=== PATIENT | female | born 1970 | race Caucasian/White ===

== ENCOUNTER 2016-08-30 20:31 | Emergency (ER) | payer MEDICAID ==
[2016-08-30 20:56] VITALS: BP 139/73; PULSE 59; RESP 18; TEMP 98.2; O2SAT 88
--- NOTE | 2016-08-30 22:14 | EDPHY ---
H & P Stated Complaint: needs ua for methadone clinic and has c/o weakness blood in stool HPI/ROS: HPI CHIEF COMPLAINT: Multiple complaints HISTORY OF PRESENT ILLNESS: This patient very pleasant 46-year-old female significant past medical history for COPD and tobacco abuse, hypertension, obstructive sleep apnea, diastolic heart failure, and history of hypoxic respiratory failure, presents to the emergency room Past Medical History:COPD, ongoing tobacco use, hypertension, TIGIST, diastolic heart failure, hypoxic respiratory failure Past Surgical History: No recent pertinent surgical history Social History: Family History: ROS REVIEW OF SYSTEMS: A comprehensive 10 point review of systems is otherwise negative aside from elements mentioned in the history of present illness. Exam Constitutional triage nursing summary reviewed, vital signs reviewed, awake/ alert. Eyes normal conjunctivae and sclera, EOMI, PERRLA. HENT normal inspection, atraumatic, moist mucus membranes, no epistaxis, neck supple/ no meningismus, no raccoon eyes. Respiratory clear to auscultation bilaterally, normal breath sounds, no respiratory distress, no wheezing. Cardiovascular rate normal, regular rhythm, no murmur, no edema, distal pulses normal. Gastrointestinal soft, non-tender, no rebound, no guarding, normal bowel sounds, no distension, no pulsatile mass. Genitourinary no CVA tenderness. Musculoskeletal no midline vertebral tenderness, full range of motion, no calf swelling, no tenderness of extremities, no meningismus, good pulses, neurovascularly intact. Skin pink, warm, & dry, no rash, skin atraumatic. Neurologic awake, alert and oriented x 3, AAOx3, moves all 4 extremities equally, motor intact, sensory intact, CN II-XII intact, normal cerebellar, normal vision, normal speech. Psychiatric normal mood/affect. Heme/Lymph/Immune no lymphadenopathy. Differential Diagnosis: Medical Decision Making: Re-evaluation: This patient left or eloped from the emergency room prior to me seeing her. Source: Patient - Personal History LMP (Females 10-55): Hysterectomy Current Tetanus/Diphtheria Vaccine: Yes Current Tetanus Diphtheria and Acellular Pertussis (TDAP): Yes Tetanus Vaccine Date: 2011 - Medical/Surgical History Hx Asthma: No Hx Chronic Respiratory Disease: Yes Hx Diabetes: No Hx Cardiac Disease: Yes Hx Renal Disease: No Hx Cirrhosis: No Hx Alcoholism: No Hx HIV/AIDS: No Hx Splenectomy or Spleen Trauma: No Other PMH: COPD, CHF, chronic O2 use, brain lesions, HTN, heroin use, chronic pain, james, migraines, sleep apnea, HYSTERECTOMY - Social History Smoking Status: Light smoker Constitutional: Initial Vital Signs Temperature (C) 36.8 C 08/30/16 20:51 Heart Rate 59 L 08/30/16 20:51 Respiratory Rate 18 08/30/16 20:51 Blood Pressure 139/73 H 08/30/16 20:51 O2 Sat (%) 88 L 08/30/16 20:51 O2 Delivery Mode Room Air Allergies/Adverse Reactions: Sulfa (Sulfonamide Antibiotics) Allergy (Severe, Verified 01/02/16 16:48) CAN'T BREATHE metoclopramide HCl [From Reglan] Allergy (Intermediate, Verified 01/02/16 16:48) jaw clenched up tramadol HCl [From Ultram] Allergy (Unknown, Verified 01/02/16 16:48) TROUBLE BREATHING,HIVES amoxicillin trihydrate [From Augmentin] Allergy (Verified 01/02/16 16:48) potassium clavulanate [From Augmentin] Allergy (Verified 01/02/16 16:48) propranolol HCl [From Inderal] Allergy (Verified 01/02/16 16:48) Hives Home Medications: Medication Instructions Recorded amLODIPine BESYLATE [Norvasc 10 mg 10 mg PO DAILY 10/03/15 (*)] clonazePAM [klonoPIN (*)] 1 mg PO TID 10/03/15 Beclomethasone Qvar 80 [Qvar 80 2 puffs IH DAILY 10/06/15 (*)] Furosemide [Lasix 20 MG (*)] 20 mg PO TID PRN 10/06/15 Methadone HCl [Dolophine Intensol 220 mg PO ,18 10/06/15 10 mg/ml (*)] OXcarbazepine [Trileptal 300mg (*)] 600 mg PO DAILY 10/06/15 OXcarbazepine [Trileptal 300mg (*)] 900 mg PO HS 10/06/15 Zolpidem Tartrate [Ambien 10 mg] 10 mg PO HS PRN 10/06/15 Albuterol [Ventolin Hfa Inhaler] 2 puffs IH QID PRN #1 mdi 12/28/15 Aspirin [Aspirin 325 mg (*)] 325 mg PO DAILY 01/29/16 Carisoprodol [Soma (*)] 350 mg PO QID PRN #20 tab 02/03/16 Lisinopril [Zestril 20 mg (*)] 20 mg PO BID 05/28/16 hydrALAZINE [Apresoline 50 mg (*)] 50 mg PO BIDMEAL 05/28/16 hydrOXYzine HCL [hydrOXYzine HCL 50 mg PO HS PRN 05/28/16 (RX)] CLONIDINE 0.3 mg TP Q7D@05/30/16 Tiotropium Inhaler [Spiriva 18 mcg IH DAILY #1 mdi 05/31/16 Handihaler] Departure - Departure Disposition: Left Without Being Seen Condition: Fair Referrals: FAMILIA HEREDIA [Other] - As per Instructions
== END 2016-08-30 22:22 | disposition left against medical advice (07) ==
DX: Z53.21 Procedure and treatment not carried out due to patient leaving prior to being seen by health care provider (principal)

== ENCOUNTER 2016-09-22 20:10 | Emergency (ER) | payer MEDICAID ==
--- NOTE | 2016-09-22 20:22 | EDPHY ---
H & P Time Seen by Provider: 09/22/16 20:14 HPI/ROS: CHIEF COMPLAINT: Can't breathe HISTORY OF PRESENT ILLNESS: Patient is a smoker, has a history of CHF, says she has been taking her Lasix. She uses home oxygen at night. She says over the last week she has been having increased shortness of breath and weight gain of about 12 lb to 268. Symptoms are worse with exertion or lying flat, but not associated with cough or hemoptysis. She does have extremity edema. No chest pain. Took extra Lasix today and has increased urination. REVIEW OF SYSTEMS: Eye: no change in vision ENT: no sore throat Cardiac: no chest pain or syncope Pulmonary: HPI Abdomen: no vomiting, diarrhea, abdominal pain. She does have some bad heartburn with acid taste up into her throat. Musculoskeletal: Chronic pain, on methadone, unchanged from usual. Skin: no rash Neuro: no headache Constitutional: no fever : HPI, no dysuria or hematuria A comprehensive 10 point review of systems is otherwise negative aside from elements mentioned in the history of present illness. PAST MEDICAL HISTORY: History and physical dated 05/28/2016 personally reviewed. Includes CHF from diastolic dysfunction, sleep apnea, hypertension, COPD, chronic pain on methadone. Social history: Continues to smoke cigarettes. General Appearance: Alert and conversant, cooperative. Eyes: No scleral icterus. ENT, Mouth: Normal mucous membranes. Respiratory: Slight bilateral expiratory wheezes, no rales, no stridor; otherwise speaks in full sentences. Cardiovascular: Regular rate and rhythm. Gastrointestinal: Abdomen is soft and non tender. Neurological: Alert and oriented x3. Normally conversant. Face symmetric, normal movement and sensation in all extremities. Skin: Warm and dry, no rashes. Musculoskeletal: Trace bilateral peripheral edema but no calf tenderness. Psychiatric: Not agitated. Emergency Department course/MDM: Plan EKG, chest x-ray, BNP troponin and D-dimer. Pretest clinical suspicion for pulmonary embolism is low. 2109: Chest x-ray negative, will treat with DuoNeb and albuterol and oral prednisone at this time. GI cocktail, Zofran 4 mg IV. 2114: BNP 127, troponin negative. Likely COPD exacerbation, think CHF or ACS or pulmonary embolism less likely. 2204: Results discussed, patient declined further nebulizer treatments, discharge with oral prednisone and her usual inhalers. Much more likely to be COPD exacerbation. Smoking Status: Light smoker Constitutional: Initial Vital Signs Temperature (C) 36.8 C 09/22/16 20:22 Heart Rate 69 09/22/16 20:22 Respiratory Rate 16 09/22/16 20:22 Blood Pressure 134/88 H 09/22/16 20:22 O2 Sat (%) 93 09/22/16 20:22 O2 Delivery Mode Nasal Cannula O2 (L/minute) 2 Allergies/Adverse Reactions: Sulfa (Sulfonamide Antibiotics) Allergy (Severe, Verified 09/22/16 20:25) CAN'T BREATHE metoclopramide HCl [From Reglan] Allergy (Intermediate, Verified 09/22/16 20:25) jaw clenched up tramadol HCl [From Ultram] Allergy (Unknown, Verified 09/22/16 20:25) TROUBLE BREATHING,HIVES amoxicillin trihydrate [From Augmentin] Allergy (Verified 09/22/16 20:25) potassium clavulanate [From Augmentin] Allergy (Verified 09/22/16 20:25) propranolol HCl [From Inderal] Allergy (Verified 09/22/16 20:25) Hives Home Medications: Medication Instructions Recorded amLODIPine BESYLATE [Norvasc 10 mg 10 mg PO DAILY 10/03/15 (*)] clonazePAM [klonoPIN (*)] 1 mg PO TID 10/03/15 Beclomethasone Qvar 80 [Qvar 80 2 puffs IH DAILY 10/06/15 (*)] Furosemide [Lasix 20 MG (*)] 20 mg PO TID PRN 10/06/15 Methadone HCl [Dolophine Intensol 220 mg PO ,18 10/06/15 10 mg/ml (*)] OXcarbazepine [Trileptal 300mg (*)] 600 mg PO DAILY 10/06/15 OXcarbazepine [Trileptal 300mg (*)] 900 mg PO HS 10/06/15 Zolpidem Tartrate [Ambien 10 mg] 10 mg PO HS PRN 10/06/15 Albuterol [Ventolin Hfa Inhaler] 2 puffs IH QID PRN #1 mdi 12/28/15 Aspirin [Aspirin 325 mg (*)] 325 mg PO DAILY 01/29/16 Carisoprodol [Soma (*)] 350 mg PO QID PRN #20 tab 02/03/16 Lisinopril [Zestril 20 mg (*)] 20 mg PO BID 05/28/16 hydrALAZINE [Apresoline 50 mg (*)] 50 mg PO BIDMEAL 05/28/16 hydrOXYzine HCL [hydrOXYzine HCL 50 mg PO HS PRN 05/28/16 (RX)] CLONIDINE 0.3 mg TP Q7D@09 05/30/16 Tiotropium Inhaler [Spiriva 18 mcg IH DAILY #1 mdi 05/31/16 Handihaler] predniSONE [prednisone 20mg (RX)] 40 mg PO DAILY 5 Days 09/22/16 Medical Decision Making - Diagnostics EKG Interpretation: 12-lead EKG interpreted by me; official reading is in trace master. My interpretation is sinus rhythm rate 61, no acute ischemic changes per Imaging: Chest x-ray interpreted by myself is normal, no CHF, no infiltrates. Differential Diagnosis: Differential diagnosis considered for shortness of breath including but not limited to pulmonary infectious process, COPD, asthma, pulmonary embolus and congestive heart failure. - Data Points Laboratory Results: Laboratory Results 09/22/16 20:30 09/22/16 20:30 09/22/16 09/22/16 09/22/16 20:30 20:30 20:30 WBC RBC Hgb Hct MCV MCH MCHC RDW Plt Count MPV Neut % (Auto) Lymph % (Auto) [place] % (Auto) Eos % (Auto) Baso % (Auto) Nucleat RBC Rel Count Absolute Neuts (auto) Absolute Lymphs (auto) Absolute Monos (auto) Absolute Eos (auto) Absolute Basos (auto) Absolute Nucleated RBC Immature Gran % Immature Gran # D-Dimer 0.41 ug/mLFEU ug/mLFEU (0.00-0.50) Sodium 136 mEq/L mEq/L (134-144) Potassium 4.5 mEq/L mEq/L (3.5-5.2) Chloride 101 mEq/L mEq/L (97-110) Carbon Dioxide 26 mEq/l mEq/l (22-31) Anion Gap 9 mEq/L mEq/L (8-16) BUN 17 mg/dL mg/dL (7-23) Creatinine 0.6 mg/dL mg/dL (0.6-1.0) Estimated GFR > 60 Glucose 100 mg/dL mg/dL (70-100) Calcium 9.0 mg/dL mg/dL (8.5-10.4) Troponin I < 0.012 ng/mL ng/mL (0-0.034) NT-Pro-B Natriuret Pep 127 pg/mL H pg/mL (0-125) Beta HCG, Qual NEGATIVE 09/22/16 20:30 WBC 10.32 10^3/uL H 10^3/uL (3.80-9.50) RBC 4.54 10^6/uL 10^6/uL (4.18-5.33) Hgb 13.8 g/dL g/dL (12.6-16.3) Hct 40.4 % % (38.0-47.0) MCV 89.0 fL fL (81.5-99.8) MCH 30.4 pg pg (27.9-34.1) MCHC 34.2 g/dL g/dL (32.4-36.7) RDW 12.6 % % (11.5-15.2) Plt Count 255 10^3/uL 10^3/uL (150-400) MPV 10.4 fL fL (8.7-11.7) Neut % (Auto) 51.0 % % (39.3-74.2) Lymph % (Auto) 35.9 % % (15.0-45.0) [place] % (Auto) 8.6 % % (4.5-13.0) Eos % (Auto) 3.2 % % (0.6-7.6) Baso % (Auto) 0.6 % % (0.3-1.7) Nucleat RBC Rel Count 0.0 % % (0.0-0.2) Absolute Neuts (auto) 5.27 10^3/uL 10^3/uL (1.70-6.50) Absolute Lymphs (auto) 3.70 10^3/uL H 10^3/uL (1.00-3.00) Absolute Monos (auto) 0.89 10^3/uL H 10^3/uL (0.30-0.80) Absolute Eos (auto) 0.33 10^3/uL 10^3/uL (0.03-0.40) Absolute Basos (auto) 0.06 10^3/uL 10^3/uL (0.02-0.10) Absolute Nucleated RBC 0.00 10^3/uL 10^3/uL (0-0.01) Immature Gran % 0.7 % % (0.0-1.1) Immature Gran # 0.07 10^3/uL 10^3/uL (0.00-0.10) D-Dimer Sodium Potassium Chloride Carbon Dioxide Anion Gap BUN Creatinine Estimated GFR Glucose Calcium Troponin I NT-Pro-B Natriuret Pep Beta HCG, Qual Medications Given: Discontinued Medications Al Hydroxide/Mg Hydroxide (Maalox Susp) 30 ml PO ONCE ONE Stop: 09/22/16 21:10 Last Admin: 09/22/16 21:23 Dose: 30 ml Albuterol (Proventil Neb) 3 ml IH EDNOW ONE Stop: 09/22/16 21:10 Last Admin: 09/22/16 21:27 Dose: 3 ml Albuterol/Ipratropium (Duoneb) 3 ml IH EDNOW ONE Stop: 09/22/16 21:10 Last Admin: 09/22/16 21:28 Dose: 3 ml Hyoscyamine Sulfate (Levsin, Hyomax-Sl) 0.25 mg PO ONCE ONE Stop: 09/22/16 21:10 Last Admin: 09/22/16 21:22 Dose: 0.25 mg Lidocaine (Lidocaine 2% Viscous) 15 ml PO ONCE ONE Stop: 09/22/16 21:10 Last Admin: 09/22/16 21:23 Dose: 15 ml Ondansetron HCl (Zofran) 4 mg IVP EDNOW ONE Stop: 09/22/16 21:11 Last Admin: 09/22/16 21:23 Dose: 4 mg Prednisone (Prednisone) 60 mg PO EDNOW ONE Stop: 09/22/16 21:10 Last Admin: 09/22/16 21:22 Dose: 60 mg Departure - Departure Disposition: Home, Routine, Self-Care Clinical Impression: Chronic obstructive pulmonary disease with acute exacerbation Condition: Good Instructions: COPD (Chronic Obstructive Pulmonary Disease) (ED) Additional Instructions: Inhalers as prescribed. Your BNP was 127 today. Referrals: VIDHYA JOSE [Other] - As per Instructions Prescriptions: predniSONE [prednisone 20mg (RX)] 40 mg PO DAILY 5 Days
[2016-09-22 20:25] VITALS: RESP 16; TEMP 98.2
--- NOTE | 2016-09-22 20:51 | CPEKG ---
Heart Rate: 61 RR Interval: 984 P-R Interval: 164 QRSD Interval: 82 QT Interval: 432 QTC Interval: 435 P [place]: 48 QRS [place]: 45 T Wave [place]: 34 EKG Severity - NORMAL ECG - EKG Impression: SINUS RHYTHM Electronically Signed By: Roberth De La Vega 22-Sep-2016 21:01:54
[2016-09-22 20:52] LABS: % IMMATURE GRANULYOCYTES 0.7 % (0.0-1.1); ABSOLUTE IMMATURE GRANULOCYTES 0.07 10^3/uL (0.00-0.10); ADD DIFF? NO; ADD MORPH? NO; ADD SCAN? NO; ATYPICAL LYMPHOCYTE FLAG 10 (0-99); FRAGMENT RBC FLAG 0 (0-99); HEMATOCRIT 40.4 % (38.0-47.0); HEMOGLOBIN 13.8 g/dL (12.6-16.3); LEFT SHIFT FLG 0 (0-99); LIPEMIA HEMOLYSIS FLAG 90 (0-99); MEAN CELL HEMOGLOBIN 30.4 pg (27.9-34.1); MEAN CELL HEMOGLOBIN CONCENTR. 34.2 g/dL (32.4-36.7); MEAN PLATELET VOLUME 10.4 fL (8.7-11.7); PLATELET CLUMPS FLAG 10 (0-99); PLATELET COUNT 255 10^3/uL (150-400); RED BLOOD CELL COUNT 4.54 10^6/uL (4.18-5.33); RED CELL DISTRIBUTION WIDTH 12.6 % (11.5-15.2)
[2016-09-22 21:01] LABS: ANION GAP 9 mEq/L (8-16); CARBON DIOXIDE 26 mEq/l (22-31); CHLORIDE 101 mEq/L (97-110); CREATININE 0.6 mg/dL (0.6-1.0); GLOMERULAR FILTRATION RATE > 60; GLUCOSE 100 mg/dL (70-100); POTASSIUM 4.5 mEq/L (3.5-5.2); SODIUM 136 mEq/L (134-144)
[2016-09-22] MEDS ORDERED: IPRATROPIUM/ALBUTEROL 3 ML DEYVIAL IH ONE (21:09)
[2016-09-22] MEDS ORDERED: predniSONE 20 MG TAB PO ONE (21:09)
[2016-09-22] MEDS ORDERED: LIDOCAINE 2% VISCOUS 15 ML UDCUP PO ONE (21:09)
[2016-09-22] MEDS ORDERED: ALBUTEROL 3 ML DEYVIAL IH ONE (21:09)
[2016-09-22] MEDS ORDERED: HYOSCYAMINE SULFATE 0.125 MG TAB PO ONE (21:09)
[2016-09-22] MEDS ORDERED: MAG HYDROX/AL HYDROX/SIMETH 30 ML UDCUP PO ONE (21:09)
[2016-09-22] MEDS ORDERED: ONDANSETRON 4 MG/2 ML VIAL IVP ONE (21:10)
[2016-09-22 21:13] LABS: TROPONIN I < 0.012 ng/mL (0-0.034)
[2016-09-22 22:19] VITALS: BP 126/76; PULSE 67; O2SAT 91
== END 2016-09-22 22:19 | disposition home or self-care (01) ==
DX: J44.1 Chronic obstructive pulmonary disease with (acute) exacerbation (principal); I50.9 Heart failure, unspecified; I10 Essential (primary) hypertension; F17.210 Nicotine dependence, cigarettes, uncomplicated; Z79.82 Long term (current) use of aspirin
CPT/HCPCS: 96374; J2405

== ENCOUNTER 2016-10-04 19:15 | Observation (INO) | payer MEDICAID ==
[2016-10-04] MEDS ORDERED: IPRATROPIUM/ALBUTEROL 3 ML DEYVIAL IH ONE ×2 (19:25→19:34)
--- NOTE | 2016-10-04 19:25 | EDPHY ---
H & P Stated Complaint: COUGH, HEADACHE 1 DAY, CHEST PAIN AND JAW PAIN SINCE THIS A.M. HPI/ROS: HPI CHIEF COMPLAINT: Cough, shortness of breath, headache, jaw pain, chest pain HISTORY OF PRESENT ILLNESS: This patient very pleasant 46-year-old female, presents emergency room with cough, congestion, dyspnea on exertion, shortness of breath, chest pain with jaw pain, this was sick for 2 days. She does have underlying COPD, diastolic heart failure, hypertension obstructive sleep apnea no history of coronary artery disease. She does smoke tobacco daily. Last cigarette was 5 cigarettes today. She tells me she was seen here in emergency room recently for shortness of breath. Went home on prednisone. The last 2 days or progression of symptoms gotten worse dyspnea on exertion with pulse ox that she has at home reading 76% with exertion, 90% while rest. She does tell me she has mucus secretions, nothing productive. Distally tells me she has had some left-sided sharp chest pain that radiates down her arm and left jaw, nonexertional. Not currently present. Had multiple episodes of this today. Past Medical History: COPD, diastolic heart failure, hypertension, obstructive sleep apnea, no known coronary artery disease, no history be DVT Past Surgical History: No recent surgical history Social History: daily tobacco use 5 cigarettes, denies drugs, on methadone Family History: noncontributory ROS REVIEW OF SYSTEMS: A comprehensive 10 point review of systems is otherwise negative aside from elements mentioned in the history of present illness. Exam Constitutional appears well nontoxic triage nursing summary reviewed, vital signs reviewed, awake/alert. (Vital signs no 90% room air oxygen saturation at triage.) Eyes normal conjunctivae and sclera, EOMI, PERRLA. HENT normal inspection, atraumatic, moist mucus membranes, no epistaxis, neck supple/ no meningismus, no raccoon eyes. Respiratory decreased breath sounds bilaterally, crackles throughout lung luna, faint wheezing, Cardiovascular rate normal, regular rhythm, no murmur, no edema, distal pulses normal. Gastrointestinal soft, non-tender, no rebound, no guarding, normal bowel sounds, no distension, no pulsatile mass. Genitourinary no CVA tenderness. Musculoskeletal no midline vertebral tenderness, full range of motion, no calf swelling, no tenderness of extremities, no meningismus, good pulses, neurovascularly intact. Skin pink, warm, & dry, no rash, skin atraumatic. Neurologic awake, alert and oriented x 3, AAOx3, moves all 4 extremities equally, motor intact, sensory intact, CN II-XII intact, normal cerebellar, normal vision, normal speech. Psychiatric normal mood/affect. Heme/Lymph/Immune no lymphadenopathy. Differential Diagnosis: Includes but is not limited to in a particular order, COPD exacerbation, pneumonia, diastolic heart failure, pneumothorax, ACS. Medical Decision Making:plan for this patient will treat for COPD exacerbation DuoNeb breathing treatment, IV Solu-Medrol, full ekg monitor tech, EKG, troponin , blood work. Re-evaluate closely. Re-evaluation: EKG interpretation by me on record in [facility] system. Impression time of EKG 1958, sinus rhythm rate of 54, no acute ischemic changes specifically no ST elevation, ST depression or prolonged intervals. EKG unremarkable for acute ischemia. 2152: Re-evaluation at this time patient still has faint wheezing. 2nd DuoNeb breathing treatment ordered. Patient is requesting be admitted to the hospital for dyspnea on exertion dyspnea. Feel this is reasonable given that she had low O2 sats, still wheezing after DuoNeb breathing treatment. Chest x-ray reviewed shows bronchitis no acute pneumonia or overt failure. Troponin and BNP are pending at this time. o2 sat on room air 90% upon arrival here. 93% on 2 L at this time. Resting. 2217: this patient be admitted to the hospitalist service [facility] for observation for COPD exacerbation and dyspnea. No concerned this patient has a P no significant pleuritic pain, no profound hypoxia, no EKG changes. Has wheezing on exam. Improved after DuoNeb breathing treatment getting a 2nd Orapred breathing treatment. I did order the patient Levaquin. Patient be admitted to [facility] for observation pulmonary toilet. Dr. Grover accepts Source: Patient - Personal History LMP (Females 10-55): Hysterectomy Current Tetanus/Diphtheria Vaccine: Yes Current Tetanus Diphtheria and Acellular Pertussis (TDAP): Yes Tetanus Vaccine Date: 2011 - Medical/Surgical History Hx Asthma: No Hx Chronic Respiratory Disease: Yes Hx Diabetes: No Hx Cardiac Disease: Yes Hx Renal Disease: No Hx Cirrhosis: No Hx Alcoholism: No Hx HIV/AIDS: No Hx Splenectomy or Spleen Trauma: No Other PMH: COPD, CHF, chronic O2 use, brain lesions, HTN, heroin use, chronic pain, james, migraines, sleep apnea, HYSTERECTOMY - Social History Smoking Status: Light smoker Constitutional: Initial Vital Signs Temperature (C) 37.1 C 10/04/16 19:16 Heart Rate 61 10/04/16 19:16 Respiratory Rate 18 10/04/16 19:16 Blood Pressure 134/75 H 10/04/16 19:16 O2 Sat (%) 90 L 10/04/16 19:16 O2 Delivery Mode Room Air O2 (L/minute) 2 Allergies/Adverse Reactions: Sulfa (Sulfonamide Antibiotics) Allergy (Severe, Verified 10/04/16 19:21) CAN'T BREATHE metoclopramide HCl [From Reglan] Allergy (Intermediate, Verified 10/04/16 19:21) jaw clenched up tramadol HCl [From Ultram] Allergy (Unknown, Verified 10/04/16 19:21) TROUBLE BREATHING,HIVES amoxicillin trihydrate [From Augmentin] Allergy (Verified 10/04/16 19:21) potassium clavulanate [From Augmentin] Allergy (Verified 10/04/16 19:21) propranolol HCl [From Inderal] Allergy (Verified 10/04/16 19:21) Hives Home Medications: Medication Instructions Recorded amLODIPine BESYLATE [Norvasc 10 mg 10 mg PO DAILY 10/03/15 (*)] clonazePAM [klonoPIN (*)] 1 mg PO TID 10/03/15 Beclomethasone Qvar 80 [Qvar 80 2 puffs IH DAILY 10/06/15 (*)] Furosemide [Lasix 20 MG (*)] 20 mg PO TID PRN 10/06/15 Methadone HCl [Dolophine Intensol 220 mg PO 06,18 10/06/15 10 mg/ml (*)] OXcarbazepine [Trileptal 300mg (*)] 600 mg PO DAILY 10/06/15 OXcarbazepine [Trileptal 300mg (*)] 900 mg PO HS 10/06/15 Zolpidem Tartrate [Ambien 10 mg] 10 mg PO HS PRN 10/06/15 Albuterol [Ventolin Hfa Inhaler] 2 puffs IH QID PRN #1 mdi 12/28/15 Aspirin [Aspirin 325 mg (*)] 325 mg PO DAILY 08/07/16 Carisoprodol [Soma (*)] 350 mg PO QID PRN #20 tab 02/03/16 Lisinopril [Zestril 20 mg (*)] 20 mg PO BID 05/28/16 hydrALAZINE [Apresoline 50 mg (*)] 50 mg PO BIDMEAL 05/28/16 hydrOXYzine HCL [hydrOXYzine HCL 50 mg PO HS PRN 05/28/16 (RX)] CLONIDINE 0.3 mg TP Q7D@09 05/30/16 Tiotropium Inhaler [Spiriva 18 mcg IH DAILY #1 mdi 05/31/16 Handihaler] predniSONE [prednisone 20mg (RX)] 40 mg PO DAILY 5 Days 09/22/16 Medical Decision Making - Diagnostics Imaging: Imaging Impressions Chest X-Ray 10/04/16 19:25 Impression: No significant findings. - Data Points Laboratory Results: Laboratory Results 10/04/16 21:00 10/04/16 21:00 10/04/16 10/04/16 10/04/16 21:00 21:00 21:00 WBC 10.51 10^3/uL H 10^3/uL (3.80-9.50) RBC 4.12 10^6/uL L 10^6/uL (4.18-5.33) Hgb 12.8 g/dL g/dL (12.6-16.3) Hct 37.6 % L % (38.0-47.0) MCV 91.3 fL fL (81.5-99.8) MCH 31.1 pg pg (27.9-34.1) MCHC 34.0 g/dL g/dL (32.4-36.7) RDW 12.5 % % (11.5-15.2) Plt Count 249 10^3/uL 10^3/uL (150-400) MPV 10.2 fL fL (8.7-11.7) Neut % (Auto) 47.7 % % (39.3-74.2) Lymph % (Auto) 36.3 % % (15.0-45.0) [place] % (Auto) 10.6 % % (4.5-13.0) Eos % (Auto) 3.7 % % (0.6-7.6) Baso % (Auto) 0.7 % % (0.3-1.7) Nucleat RBC Rel Count 0.0 % % (0.0-0.2) Absolute Neuts (auto) 5.03 10^3/uL 10^3/uL (1.70-6.50) Absolute Lymphs (auto) 3.81 10^3/uL H 10^3/uL (1.00-3.00) Absolute Monos (auto) 1.11 10^3/uL H 10^3/uL (0.30-0.80) Absolute Eos (auto) 0.39 10^3/uL 10^3/uL (0.03-0.40) Absolute Basos (auto) 0.07 10^3/uL 10^3/uL (0.02-0.10) Absolute Nucleated RBC 0.00 10^3/uL 10^3/uL (0-0.01) Immature Gran % 1.0 % % (0.0-1.1) Immature Gran # 0.10 10^3/uL 10^3/uL (0.00-0.10) PT 12.6 SEC SEC (12.0-15.0) INR 0.95 (0.83-1.16) APTT 23.6 SEC SEC (23.0-38.0) Sodium 137 mEq/L mEq/L (134-144) Potassium 4.7 mEq/L mEq/L (3.5-5.2) Chloride 97 mEq/L mEq/L (97-110) Carbon Dioxide 30 mEq/l mEq/l (22-31) Anion Gap 10 mEq/L mEq/L (8-16) BUN 24 mg/dL H mg/dL (7-23) Creatinine 0.6 mg/dL mg/dL (0.6-1.0) Estimated GFR > 60 Glucose 84 mg/dL mg/dL (70-100) Calcium 9.0 mg/dL mg/dL (8.5-10.4) Magnesium 1.9 mg/dL mg/dL (1.6-2.3) Total Bilirubin 0.5 mg/dL mg/dL (0.1-1.4) Conjugated Bilirubin 0.5 mg/dL mg/dL (0.0-0.5) Unconjugated Bilirubin 0.0 mg/dL mg/dL (0.0-1.1) AST 29 IU/L IU/L (14-46) ALT 35 IU/L IU/L (9-52) Alkaline Phosphatase 125 IU/L IU/L (38-126) Creatine Kinase 103 IU/L IU/L (0-156) CK-MB (CK-2) Fraction 2.18 ng/mL ng/mL (0-3.19) Troponin I < 0.012 ng/mL ng/mL (0-0.034) NT-Pro-B Natriuret Pep 214 pg/mL H pg/mL (0-125) Total Protein 7.1 g/dL g/dL (6.3-8.2) Albumin 4.0 g/dL g/dL (3.5-5.0) Lipase 86.0 IU/L IU/L (23-300) Medications Given: Discontinued Medications Albuterol/Ipratropium (Duoneb) 3 ml IH EDNOW ONE Stop: 10/04/16 19:26 Last Admin: 10/04/16 19:45 Dose: 3 ml Methylprednisolone Sodium Succinate (Solu-Medrol) 125 mg IVP EDNOW ONE Stop: 10/04/16 19:36 Last Admin: 10/04/16 21:13 Dose: 125 mg Departure - Departure Disposition: [facility] Acute Clinical Impression: Hypoxia COPD (chronic obstructive pulmonary disease) Qualifiers: COPD type: unspecified COPD Qualified Code(s): J44.9 - Chronic obstructive pulmonary disease, unspecified Condition: Fair Referrals: VIDHYA SCHAEFFER [Other] - As per Instructions
[2016-10-04] MEDS ORDERED: methylPREDNISolone SOD SUCC 125 MG/2 ML VIAL IVP ONE (19:35)
--- NOTE | 2016-10-04 20:01 | CPEKG ---
Heart Rate: 54 RR Interval: 1111 P-R Interval: 176 QRSD Interval: 86 QT Interval: 444 QTC Interval: 421 P [place]: 45 QRS [place]: 58 T Wave [place]: 52 EKG Severity - BORDERLINE ECG - EKG Impression: SINUS RHYTHM EKG Impression: PROBABLE LEFT ATRIAL ABNORMALITY Electronically Signed By: Christiano Hill 04-Oct-2016 22:46:26
[2016-10-04 21:20] LABS: ADD DIFF? NO; ADD MORPH? NO; ADD SCAN? NO; ATYPICAL LYMPHOCYTE FLAG 10 (0-99); FRAGMENT RBC FLAG 0 (0-99); HEMATOCRIT 37.6 % (38.0-47.0); HEMOGLOBIN 12.8 g/dL (12.6-16.3); LEFT SHIFT FLG 10 (0-99); LIPEMIA HEMOLYSIS FLAG 90 (0-99); MEAN CELL HEMOGLOBIN 31.1 pg (27.9-34.1); MEAN CELL VOLUME 91.3 fL (81.5-99.8); MEAN PLATELET VOLUME 10.2 fL (8.7-11.7); PLATELET CLUMPS FLAG 0 (0-99); PLATELET COUNT 249 10^3/uL (150-400); RED BLOOD CELL COUNT 4.12 10^6/uL (4.18-5.33); RED CELL DISTRIBUTION WIDTH 12.5 % (11.5-15.2)
[2016-10-04 21:26] LABS: INR 0.95 (0.83-1.16); PROTIME(PATIENT) 12.6 SEC (12.0-15.0)
[2016-10-04 21:27] LABS: APTT 23.6 SEC (23.0-38.0)
[2016-10-04 21:48] LABS: ALANINE AMINOTRANSFERASE 35 IU/L (9-52); ALKALINE PHOSPHATASE 125 IU/L (38-126); ANION GAP 10 mEq/L (8-16); ASPARTATE AMINOTRANSFERASE 29 IU/L (14-46); BILIRUBIN,TOTAL 0.5 mg/dL (0.1-1.4); BILIRUBIN-CONJUGATED 0.5 mg/dL (0.0-0.5); CARBON DIOXIDE 30 mEq/l (22-31); CHLORIDE 97 mEq/L (97-110); CREATININE 0.6 mg/dL (0.6-1.0); GLOMERULAR FILTRATION RATE > 60; GLUCOSE 84 mg/dL (70-100); MAGNESIUM 1.9 mg/dL (1.6-2.3); POTASSIUM 4.7 mEq/L (3.5-5.2); SODIUM 137 mEq/L (134-144); TOTAL PROTEIN 7.1 g/dL (6.3-8.2)
[2016-10-04 21:59] LABS: CREATINE KINASE-MB FRACTION 2.18 ng/mL (0-3.19); TROPONIN I < 0.012 ng/mL (0-0.034)
[2016-10-04] MEDS ORDERED: MAG HYDROX/AL HYDROX/SIMETH 30 ML UDCUP PO PRN (22:45)
[2016-10-04] MEDS ORDERED: ACETAMINOPHEN 325 MG TAB PO PRN (22:45)
[2016-10-04] MEDS ORDERED: ALBUTEROL 3 ML DEYVIAL IH PRN (22:45)
[2016-10-04] MEDS ORDERED: LISINOPRIL 20 MG TAB PO ONE (23:01)
[2016-10-04] MEDS ORDERED: ZOLPIDEM TARTRATE 5 MG TAB PO PRN (23:01)
[2016-10-04] MEDS ORDERED: clonazePAM 1 MG TAB PO ONE (23:02)
--- NOTE | 2016-10-04 23:03 | PDGENHP ---
History and Physical - Chief Complaint shortness of breath - History of Present Illness Patient is a 46 year old female with hypertension, diastolic CHF, COPD, TIGIST and chronic pain syndrome who presents to the ED complaining of chest tightness and shortness of breath. Patient states symptoms started about 3 days ago with increased wheezing and tightness in her chest. The following day she developed a productive cough with clear sputum. Today the patient reports a subjective fever, increased upper chest congestion, nausea and generalized fatigue/ weakness. Today she also reports symptom of sharp chest pain/tightness, not associated with any palpitations, lightheadedness, nausea or diaphoresis. In addition to her symptoms she also reports increased O2 requirements from 2L to 4L last night and also noted her pulse ox showed desaturation into the 75% range with exertion. She denies any recent travel, but does report a sick contact in her mother, who currently lives with her, and was diagnosed with influenza last week. On arrival to the ED, patient is afebrile and hemodynamically stable, saturating in the 90% range on room air. Labs, including cbc, bmp and troponin were unremarkable. CXR and EKG were also unremarkable. She was given IV steroids , neb treatments for wheezing, antibiotics and was admitted to the hospitalist service for further management. History Information - Allergies/Home Medication List Allergies/Adverse Reactions: Sulfa (Sulfonamide Antibiotics) Allergy (Severe, Verified 10/04/16 19:21) CAN'T BREATHE metoclopramide HCl [From Reglan] Allergy (Intermediate, Verified 10/04/16 19:21) jaw clenched up tramadol HCl [From Ultram] Allergy (Unknown, Verified 10/04/16 19:21) TROUBLE BREATHING,HIVES amoxicillin trihydrate [From Augmentin] Allergy (Verified 10/04/16 19:21) potassium clavulanate [From Augmentin] Allergy (Verified 10/04/16 19:21) propranolol HCl [From Inderal] Allergy (Verified 10/04/16 19:21) Hives Home Medications: amLODIPine BESYLATE [Norvasc 10 mg (*)] 10 mg PO DAILY 10/03/15 [Last Taken 11/06] clonazePAM [klonoPIN (*)] 1 mg PO TID 10/03/15 [Last Taken 05/28/16 07:00] Beclomethasone Qvar 80 [Qvar 80 (*)] 2 puffs IH DAILY 10/06/15 [Last Taken 05/28] Furosemide [Lasix 20 MG (*)] 20 mg PO TID PRN 10/06/15 [Last Taken 05/28/16 07: 00] Methadone HCl [Dolophine Intensol 10 mg/ml (*)] 220 mg PO ,18 10/06/15 [Last Taken 05/28/16 06:00] OXcarbazepine [Trileptal 300mg (*)] 600 mg PO DAILY 10/06/15 [Last Taken ] OXcarbazepine [Trileptal 300mg (*)] 900 mg PO HS 10/06/15 [Last Taken 05/28/16 07:00] Zolpidem Tartrate [Ambien 10 mg] 10 mg PO HS PRN 10/06/15 [Last Taken 05/27/16] Aspirin [Aspirin 325 mg (*)] 325 mg PO DAILY 01/29/16 [Last Taken 05/28/16] Lisinopril [Zestril 20 mg (*)] 20 mg PO BID 05/28/16 [Last Taken 05/28/16 07:00] hydrALAZINE [Apresoline 50 mg (*)] 50 mg PO BIDMEAL 05/28/16 [Last Taken 07:00] hydrOXYzine HCL [hydrOXYzine HCL (RX)] 50 mg PO HS PRN 05/28/16 [Last Taken 10/07] CLONIDINE 0.3 mg TP Q7D@09 05/30/16 [Last Taken 05/25/16] I have personally reviewed and updated: family history, medical history, social history, surgical history - Past Medical History Additional medical history: Hypertension. diastolic CHF. COPD. TIGIST on nightly O2. GERD. Morbid obesity. chronic pain syndrome on chronic methadone therapy - Surgical History Additional surgical history: tonsillectomy. hysterectomy. cholecystectomy. bunionectomy - Family History Positive for: non-pertinent - Social History Smoking Status: Light smoker (1/3 PPD x 30 years; trying to quit) Alcohol Use: None Drug Use: Other (former PO and IV opioid abuse; quit 3 years ago) Additional social history: Patient currently lives with her , child and mother. Review of Systems ROS: 10pt was reviewed & negative except for what was stated in HPI & below Physical Exam Temp Pulse Resp BP Pulse Ox 37.1 C 54 L 18 161/67 H 93 10/04/16 19:16 10/04/16 22:15 10/04/16 22:15 10/04/16 22:15 10/04/16 22:15 Constitutional: no apparent distress, appears nourished, not in pain, obese Eyes: PERRL, anicteric sclera, EOMI Ears, Nose, Mouth, Throat: moist mucous membranes, hearing normal, ears appear normal, no oral mucosal ulcers Cardiovascular: regular rate and rhythym, no murmur, rub, or gallop, pulses symmetric bilaterally, No JVD, No edema Peripheral Pulses: 2+: dorsalis-pedis (R), dorsalis-pedis (L) Respiratory: no respiratory distress, no rales or rhonchi, clear to auscultation Gastrointestinal: normoactive bowel sounds, soft, non-tender abdomen, no palpable masses, No guarding, No rebound Genitourinary: no bladder fullness, no bladder tenderness Skin: warm, normal color, no rashes or abrasions, no fluctuance, no induration, No mottled Musculoskeletal: full muscle strength, no muscle tenderness, normal joint ROM, no joint effusions Neurologic: AAOx3, sensation intact bilaterally, CN II-XII Intact, No weakness, No numbness, No facial droop Psychiatric: interacting appropriately, not anxious, not encephalopathic, thought process linear Lab Data & Imaging Review 10/04/16 21:00 10/04/16 21:00 WBC 10.51 10^3/uL (3.80-9.50) H 10/04/16 21:00 RBC 4.12 10^6/uL (4.18-5.33) L 10/04/16 21:00 Hgb 12.8 g/dL (12.6-16.3) 10/04/16 21:00 Hct 37.6 % (38.0-47.0) L 10/04/16 21:00 MCV 91.3 fL (81.5-99.8) 10/04/16 21:00 MCH 31.1 pg (27.9-34.1) 10/04/16 21:00 MCHC 34.0 g/dL (32.4-36.7) 10/04/16 21:00 RDW 12.5 % (11.5-15.2) 10/04/16 21:00 Plt Count 249 10^3/uL (150-400) 10/04/16 21:00 MPV 10.2 fL (8.7-11.7) 10/04/16 21:00 Neut % (Auto) 47.7 % (39.3-74.2) 10/04/16 21:00 Lymph % (Auto) 36.3 % (15.0-45.0) 10/04/16 21:00 [place] % (Auto) 10.6 % (4.5-13.0) 10/04/16 21:00 Eos % (Auto) 3.7 % (0.6-7.6) 10/04/16 21:00 Baso % (Auto) 0.7 % (0.3-1.7) 10/04/16 21:00 Nucleat RBC Rel Count 0.0 % (0.0-0.2) 10/04/16 21:00 Absolute Neuts (auto) 5.03 10^3/uL (1.70-6.50) 10/04/16 21:00 Absolute Lymphs (auto) 3.81 10^3/uL (1.00-3.00) H 10/04/16 21:00 Absolute Monos (auto) 1.11 10^3/uL (0.30-0.80) H 10/04/16 21:00 Absolute Eos (auto) 0.39 10^3/uL (0.03-0.40) 10/04/16 21:00 Absolute Basos (auto) 0.07 10^3/uL (0.02-0.10) 10/04/16 21:00 Absolute Nucleated RBC 0.00 10^3/uL (0-0.01) 10/04/16 21:00 Immature Gran % 1.0 % (0.0-1.1) 10/04/16 21:00 Immature Gran # 0.10 10^3/uL (0.00-0.10) 10/04/16 21:00 PT 12.6 SEC (12.0-15.0) 10/04/16 21:00 INR 0.95 (0.83-1.16) 10/04/16 21:00 APTT 23.6 SEC (23.0-38.0) 10/04/16 21:00 Sodium 137 mEq/L (134-144) 10/04/16 21:00 Potassium 4.7 mEq/L (3.5-5.2) 10/04/16 21:00 Chloride 97 mEq/L (97-110) 10/04/16 21:00 Carbon Dioxide 30 mEq/l (22-31) 10/04/16 21:00 Anion Gap 10 mEq/L (8-16) 10/04/16 21:00 BUN 24 mg/dL (7-23) H 10/04/16 21:00 Creatinine 0.6 mg/dL (0.6-1.0) 10/04/16 21:00 Estimated GFR > 60 10/04/16 21:00 Glucose 84 mg/dL (70-100) 10/04/16 21:00 Calcium 9.0 mg/dL (8.5-10.4) 10/04/16 21:00 Magnesium 1.9 mg/dL (1.6-2.3) 10/04/16 21:00 Total Bilirubin 0.5 mg/dL (0.1-1.4) 10/04/16 21:00 Conjugated Bilirubin 0.5 mg/dL (0.0-0.5) 10/04/16 21:00 Unconjugated Bilirubin 0.0 mg/dL (0.0-1.1) 10/04/16 21:00 AST 29 IU/L (14-46) 10/04/16 21:00 ALT 35 IU/L (9-52) 10/04/16 21:00 Alkaline Phosphatase 125 IU/L (38-126) 10/04/16 21:00 Creatine Kinase 103 IU/L (0-156) 10/04/16 21:00 CK-MB (CK-2) Fraction 2.18 ng/mL (0-3.19) 10/04/16 21:00 Troponin I < 0.012 ng/mL (0-0.034) 10/04/16 21:00 NT-Pro-B Natriuret Pep 214 pg/mL (0-125) H 10/04/16 21:00 Total Protein 7.1 g/dL (6.3-8.2) 10/04/16 21:00 Albumin 4.0 g/dL (3.5-5.0) 10/04/16 21:00 Lipase 86.0 IU/L (23-300) 10/04/16 21:00 Visualized and Interpreted Chest x-ray results: Yes Chest X-Ray results: no infiltrate Visualized and Interpreted EKG results: Yes EKG Interpretation: Positive for: normal sinsus rhythm Assessment & Plan Assessment: Patient is a 46 year old female with HTN, dCHF, COPD, TIGIST and chronic pain syndrome who presents to the ED with 3 days of cough, shortness of breath and upper respiratory infection symptoms. ED evaluation reveals mild acute hypoxia, consistent with acute COPD exacerbation. Plan: # acute on chronic hypoxic respiratory failure, acute COPD exacerbation Patient presents with hypoxia and wheezing on exam; CXR is unremarkable, EKG, BNP and troponin are within normal limits. Presentation appears consistent with an acute COPD exacerbation, likely triggered by a viral URI. Will check Flu swab given recent contact with mother who was flu positive. Will also cont PO steroids, nebs standing and prn, supplemental O2 and azithromycin. # diastolic chf Patient appears euvolemic on exam, do not suspect CHF exacerbation. Last TTE and stress test were in 01/2016, no indication to repeat them in this admission. Will confirm and continue home meds. # hypertension BP stable on presentation today. Cont home meds. # chronic low back pain, chronic opioid dependence Patient feels pain is about at baseline. Will confirm and continue home pain regimen. # dispo: admit to observation status for mild COPD exacerbation #gen: regular diet full code
[2016-10-04] MEDS ORDERED: CARISOPRODOL 350 MG TAB PO ONE (23:30)
[2016-10-05] MEDS: IPRATROPIUM BROMIDE 0.5 MG/2.5 ML DEYVIAL IH SCH ×2 (01:04→05:29)
[2016-10-05 05:15] LABS: % IMMATURE GRANULYOCYTES 1.6 % (0.0-1.1); ABSOLUTE IMMATURE GRANULOCYTES 0.15 10^3/uL (0.00-0.10); ADD DIFF? NO; ADD MORPH? NO; ADD SCAN? NO; ATYPICAL LYMPHOCYTE FLAG 0 (0-99); FRAGMENT RBC FLAG 0 (0-99); HEMOGLOBIN 14.4 g/dL (12.6-16.3); LEFT SHIFT FLG 20 (0-99); LIPEMIA HEMOLYSIS FLAG 90 (0-99); MEAN CELL HEMOGLOBIN 30.6 pg (27.9-34.1); MEAN CELL HEMOGLOBIN CONCENTR. 34.3 g/dL (32.4-36.7); MEAN CELL VOLUME 89.2 fL (81.5-99.8); PLATELET CLUMPS FLAG 0 (0-99); PLATELET COUNT 267 10^3/uL (150-400); RED BLOOD CELL COUNT 4.71 10^6/uL (4.18-5.33); RED CELL DISTRIBUTION WIDTH 12.2 % (11.5-15.2)
[2016-10-05 05:28] LABS: ANION GAP 14 mEq/L (8-16); CALCIUM 9.5 mg/dL (8.5-10.4); CARBON DIOXIDE 27 mEq/l (22-31); CHLORIDE 96 mEq/L (97-110); CREATININE 0.6 mg/dL (0.6-1.0); GLOMERULAR FILTRATION RATE > 60; GLUCOSE 275 mg/dL (70-100); POTASSIUM 4.9 mEq/L (3.5-5.2); SODIUM 137 mEq/L (134-144)
[2016-10-05 05:40] LABS: TROPONIN I < 0.012 ng/mL (0-0.034)
[2016-10-05 07:42] VITALS: RESP 16; O2SAT 93
[2016-10-05] MEDS ORDERED: CARISOPRODOL 350 MG TAB PO PRN (08:47)
[2016-10-05] MEDS ORDERED: hydrOXYzine HCL 25 MG TAB PO PRN (08:47)
[2016-10-05] MEDS ORDERED: FUROSEMIDE 20 MG TAB PO PRN (08:47)
[2016-10-05] MEDS ORDERED: ZOLPIDEM TARTRATE 5 MG TAB PO PRN (08:54)
[2016-10-05] MEDS ORDERED: BECLOMETHASONE QVAR 80 MDI IH SCH (09:00)
[2016-10-05] MEDS ORDERED: TIOTROPIUM INHALER 18 MCG/DOSE 5 DOSE/MDI IH SCH (09:00)
[2016-10-05] MEDS ORDERED: OXcarbazepine 300 MG TAB PO SCH ×2 (09:00→21:00)
[2016-10-05] MEDS ORDERED: predniSONE 20 MG TAB PO SCH (09:00)
[2016-10-05] MEDS ORDERED: LISINOPRIL 20 MG TAB PO SCH (09:00)
[2016-10-05] MEDS ORDERED: clonazePAM 1 MG TAB PO SCH (09:00)
[2016-10-05] MEDS ORDERED: ASPIRIN 325 MG TAB PO SCH (09:00)
[2016-10-05] MEDS ORDERED: METHADONE HCL 10 MG/ML 1000 ML BULK BOTTLE PO SCH (09:30)
[2016-10-05 11:28] VITALS: BP 158/95; PULSE 71; TEMP 97.3
--- NOTE | 2016-10-05 11:28 | PDDCSUM ---
Discharge Summary Discharge Summary: DISCHARGE DIAGNOSES: -ACUTE COPD EXACERBATION -ACUTE HYPOXEMIC RESPIRATORY FAILURE -SUSPECTED ACUTE VIRAL RESPIRATORY SYNDROME HOSPITAL COURSE SUMMARY: This patient with longstanding COPD came in with cough shortness of breath, decreased breath sounds with no evidence of heart failure or pneumonia and no fever. She does have a close contact family member with viral sending respiratory symptoms at home. She was tested for influenza which was negative. She was treated here with continued bronchodilator use in addition of oral prednisone along with inhaled steroid that she uses chronically. She responded quite well overnight at this point is significantly less short of breath, doing quite well on room air with ambulation walking eating talking. She is stable for discharge to home will follow-up with her primary care clinic in 3 days at the latest to check on her breathing. PENDING TEST RESULTS: None MEDICATION CHANGES: Addition of tapering prednisone 40 mg x2 days followed by 20 mg x3 days then 10 mg x3 days FOLLOW-UP PLAN: At her primary care clinic in [place] in 3 days
== END 2016-10-05 12:20 | disposition home or self-care (01) ==
LOC: F1N 23:05
PROVIDERS: ADMIT Internal Medicine; ATTEND Internal Medicine
DX: J44.1 Chronic obstructive pulmonary disease with (acute) exacerbation (principal); J96.21 Acute and chronic respiratory failure with hypoxia; I10 Essential (primary) hypertension; G47.33 Obstructive sleep apnea (adult) (pediatric); Z72.0 Tobacco use; G89.4 Chronic pain syndrome; I50.31 Acute diastolic (congestive) heart failure; F11.20 Opioid dependence, uncomplicated
CPT/HCPCS: 71010; 93005; G0378; 96374; J1956

== ENCOUNTER 2016-11-14 10:51 | Emergency (ER) | payer MEDICAID ==
[2016-11-14 10:59] VITALS: O2SAT 93
--- NOTE | 2016-11-14 11:17 | CPEKG ---
Heart Rate: 77 RR Interval: 779 P-R Interval: 152 QRSD Interval: 80 QT Interval: 392 QTC Interval: 444 P [place]: 60 QRS [place]: 25 T Wave [place]: 20 EKG Severity - ABNORMAL ECG - EKG Impression: SINUS RHYTHM EKG Impression: BIATRIAL ABNORMALITIES Electronically Signed By: Nadja Mayorga 15-Nov-2016 20:32:26
[2016-11-14 11:28] LABS: % IMMATURE GRANULYOCYTES 0.5 % (0.0-1.1); ABSOLUTE IMMATURE GRANULOCYTES 0.05 10^3/uL (0.00-0.10); ADD DIFF? NO; ADD MORPH? NO; ADD SCAN? NO; ATYPICAL LYMPHOCYTE FLAG 0 (0-99); FRAGMENT RBC FLAG 0 (0-99); HEMATOCRIT 40.2 % (38.0-47.0); HEMOGLOBIN 13.9 g/dL (12.6-16.3); LEFT SHIFT FLG 0 (0-99); LIPEMIA HEMOLYSIS FLAG 90 (0-99); MEAN CELL HEMOGLOBIN CONCENTR. 34.6 g/dL (32.4-36.7); MEAN CELL VOLUME 89.7 fL (81.5-99.8); MEAN PLATELET VOLUME 10.1 fL (8.7-11.7); PLATELET CLUMPS FLAG 0 (0-99); PLATELET COUNT 231 10^3/uL (150-400); RED BLOOD CELL COUNT 4.48 10^6/uL (4.18-5.33); RED CELL DISTRIBUTION WIDTH 12.4 % (11.5-15.2)
[2016-11-14 12:00] LABS: ANION GAP 13 mEq/L (8-16); CALCIUM 9.3 mg/dL (8.5-10.4); CARBON DIOXIDE 24 mEq/l (22-31); CHLORIDE 103 mEq/L (97-110); CREATININE 0.7 mg/dL (0.6-1.0); GLOMERULAR FILTRATION RATE > 60; GLUCOSE 151 mg/dL (70-100); POTASSIUM 4.1 mEq/L (3.5-5.2); SODIUM 140 mEq/L (134-144)
[2016-11-14 12:12] LABS: TROPONIN I < 0.012 ng/mL (0-0.034)
[2016-11-14 12:42] VITALS: BP 190/104; PULSE 80; RESP 16; TEMP 97.9
--- NOTE | 2016-11-14 12:43 | EDPHY ---
H & P Stated Complaint: high blood pressure/intermittent chest tightness x 1 week Time Seen by Provider: 11/14/16 11:06 HPI/ROS: CHIEF COMPLAINT: "My blood pressure is high" HISTORY OF PRESENT ILLNESS: 46-year-old female history hypertension, COPD, states that for the past several days she has been experiencing intermittent chest pain which lasts a few seconds, not related to exertion, no dyspnea. Last evening she felt hot and checked her blood pressure and had a home blood pressure reading of 220 systolic, repeated the blood pressure throughout the evening and this morning in repeatedly had numbers either in the high 100 there low 200s and came to the ER for evaluation. She has been compliant with her medication including multiple anti hypertensives. She currently has no complaints of chest pain or dyspnea, no headache, no visual disturbance PRIMARY CARE PROVIDER: Dr Dennis Morales in [facility] and [facility] REVIEW OF SYSTEMS: A ten point review of systems was performed and is negative with the exception of the items mentioned in the HPI PAST MEDICAL & SURGICAL HISTORY: COPD. Hypertension SOCIAL HISTORY: daily tobacco smoker PHYSICAL EXAM (Prior to examination, patient consented to physical exam, hands were washed and my usual and customary physical exam procedures followed) 1) GENERAL: Well-developed, well-nourished, alert and oriented. Appears to be in no acute distress. 2) HEAD: Normocephalic, atraumatic 3) HEENT: Pupils equal, round, reactive to light bilaterally. Sclera anicteric. 4) NECK: Full range of motion, no meningeal signs. No bruit 5) LUNGS: Clear auscultation bilaterally, no wheezes, no rhonchi, no retractions. 6) HEART: Regular rate and rhythm, no murmur, no heave, no gallop. 7) ABDOMEN: No guarding, no rebound, no focal tenderness, 8) MUSCULOSKELETAL: Moving all extremities, no focal areas of tenderness, no obvious trauma. No peripheral edema or discoloration. Negative Homans no palpable cord. 9) BACK: No CVA tenderness, no midline vertebral tenderness, no fluctuance, no step-off, no obvious trauma, no visual or palpable abnormality. 10) SKIN: No rash, no petechiae. 11) Psychiatric: Patient is oriented X 3, there is no agitation. DIFFERENTIAL DIAGNOSIS: In no particular order, including but not limited to myocardial ischemia, CHF, pulmonary embolus, chest wall pain, pleural inflammation and pulmonary infectious causes. - Personal History LMP (Females 10-55): Hysterectomy Current Tetanus/Diphtheria Vaccine: Yes Tetanus Vaccine Date: 2011 - Medical/Surgical History Hx Asthma: No Hx Chronic Respiratory Disease: Yes Hx Diabetes: No Hx Cardiac Disease: Yes Hx Renal Disease: No Hx Cirrhosis: No Hx Alcoholism: No Hx HIV/AIDS: No Hx Splenectomy or Spleen Trauma: No Other PMH: COPD, CHF, chronic O2 use, brain lesions, HTN, heroin use, chronic pain, james, migraines, sleep apnea, Hysterectomy;MRSA 5-6 years - Social History Smoking Status: Current every day smoker Constitutional: Initial Vital Signs Temperature (C) 36.8 C 11/14/16 10:55 Heart Rate 87 11/14/16 10:55 Respiratory Rate 18 11/14/16 10:55 Blood Pressure 186/96 H 11/14/16 10:55 O2 Sat (%) 93 11/14/16 10:55 O2 Delivery Mode Room Air Allergies/Adverse Reactions: Sulfa (Sulfonamide Antibiotics) Allergy (Severe, Verified 11/14/16 10:53) CAN'T BREATHE metoclopramide HCl [From Reglan] Allergy (Intermediate, Verified 11/14/16 10:53) jaw clenched up tramadol HCl [From Ultram] Allergy (Unknown, Verified 11/14/16 10:53) TROUBLE BREATHING,HIVES amoxicillin trihydrate [From Augmentin] Allergy (Verified 11/14/16 10:53) potassium clavulanate [From Augmentin] Allergy (Verified 11/14/16 10:53) propranolol HCl [From Inderal] Allergy (Verified 11/14/16 10:53) Hives Home Medications: Medication Instructions Recorded amLODIPine BESYLATE [Norvasc 10 mg 10 mg PO DAILY 10/03/15 (*)] clonazePAM [klonoPIN (*)] 1 mg PO TID 10/03/15 Beclomethasone Qvar 80 [Qvar 80 2 puffs IH DAILY 10/06/15 (*)] Furosemide [Lasix 20 MG (*)] 20 mg PO TID PRN 10/06/15 Methadone HCl [Dolophine Intensol 220 mg PO 06,18 10/06/15 10 mg/ml (*)] OXcarbazepine [Trileptal 300mg (*)] 600 mg PO DAILY 10/06/15 OXcarbazepine [Trileptal 300mg (*)] 900 mg PO HS 10/06/15 Zolpidem Tartrate [Ambien 10 mg] 10 mg PO HS PRN 10/06/15 Aspirin [Aspirin 325 mg (*)] 325 mg PO DAILY 01/29/16 Carisoprodol [Soma (*)] 350 mg PO QID PRN #20 tab 02/03/16 Lisinopril [Zestril 20 mg (*)] 20 mg PO BID 05/28/16 hydrALAZINE [Apresoline 50 mg (*)] 50 mg PO BIDMEAL 05/28/16 hydrOXYzine HCL [hydrOXYzine HCL 50 mg PO HS PRN 05/28/16 (RX)] Tiotropium Inhaler [Spiriva 18 mcg IH DAILY #1 mdi 05/31/16 Handihaler] Albuterol [Proventil Inhaler HFA 1 - 2 puffs IH DAILY PRN 10/05/16 (*)] clonIDINE [Catapres (*)] 0.3 mg PO TID 10/05/16 predniSONE 20 mg PO AD #10 tablet 10/05/16 Medical Decision Making - Diagnostics Imaging Results: Imaging Impressions Chest X-Ray 11/14/16 11:14 Impression: Negative chest. Images reviewed by myself ED Course/Re-evaluation: This patient was re-evaluated with serial examinations. Blood pressure has remained high in the emergency department, systolic in the 180s to 190s. Laboratory studies including creatinine in, troponin were obtained which are negative. She has no evidence of end-organ damage. She also complained of intermittent chest pain for the past 1 week which I think is less than likely secondary to pulmonary embolus in the presence of a negative D-dimer, less than likely secondary to cardiac etiology such as MD in the presence of negative troponin with symptoms have been present for few days. Discussed case with secondary to an physician Dr. Mayorga in the emergency department. Plan will be discharge. I do not think that hospitalization or further diagnostic studies are definitively indicated at this time. She has been given further half dose of lisinopril and recommend she take her regular evening full dose of lisinopril as well. I recommend she follow up with her primary care provider and with her provider [facility]. No evidence of renal failure. Strict return precautions and instructions provided. She feels comfortable with this plan. l - Data Points Laboratory Results: Laboratory Results 11/14/16 11:15 11/14/16 11:15 11/14/16 11/14/16 11/14/16 11:15 11:15 11:15 WBC 9.11 10^3/uL 10^3/uL (3.80-9.50) RBC 4.48 10^6/uL 10^6/uL (4.18-5.33) Hgb 13.9 g/dL g/dL (12.6-16.3) Hct 40.2 % % (38.0-47.0) MCV 89.7 fL fL (81.5-99.8) MCH 31.0 pg pg (27.9-34.1) MCHC 34.6 g/dL g/dL (32.4-36.7) RDW 12.4 % % (11.5-15.2) Plt Count 231 10^3/uL 10^3/uL (150-400) MPV 10.1 fL fL (8.7-11.7) Neut % (Auto) 50.5 % % (39.3-74.2) Lymph % (Auto) 38.0 % % (15.0-45.0) [place] % (Auto) 6.4 % % (4.5-13.0) Eos % (Auto) 3.6 % % (0.6-7.6) Baso % (Auto) 1.0 % % (0.3-1.7) Nucleat RBC Rel Count 0.0 % % (0.0-0.2) Absolute Neuts (auto) 4.60 10^3/uL 10^3/uL (1.70-6.50) Absolute Lymphs (auto) 3.46 10^3/uL H 10^3/uL (1.00-3.00) Absolute Monos (auto) 0.58 10^3/uL 10^3/uL (0.30-0.80) Absolute Eos (auto) 0.33 10^3/uL 10^3/uL (0.03-0.40) Absolute Basos (auto) 0.09 10^3/uL 10^3/uL (0.02-0.10) Absolute Nucleated RBC 0.00 10^3/uL 10^3/uL (0-0.01) Immature Gran % 0.5 % % (0.0-1.1) Immature Gran # 0.05 10^3/uL 10^3/uL (0.00-0.10) D-Dimer < 0.27 ug/mLFEU ug/mLFEU (0.00-0.50) Sodium 140 mEq/L mEq/L (134-144) Potassium 4.1 mEq/L mEq/L (3.5-5.2) Chloride 103 mEq/L mEq/L (97-110) Carbon Dioxide 24 mEq/l mEq/l (22-31) Anion Gap 13 mEq/L mEq/L (8-16) BUN 13 mg/dL mg/dL (7-23) Creatinine 0.7 mg/dL mg/dL (0.6-1.0) Estimated GFR > 60 Glucose 151 mg/dL H mg/dL (70-100) Calcium 9.3 mg/dL mg/dL (8.5-10.4) Troponin I < 0.012 ng/mL ng/mL (0-0.034) Medications Given: Discontinued Medications Lisinopril (Zestril) 10 mg PO EDNOW ONE Stop: 11/14/16 13:10 Last Admin: 11/14/16 13:19 Dose: 10 mg Departure - Departure Disposition: Home, Routine, Self-Care Clinical Impression: Hypertension Qualifiers: Hypertension type: other secondary hypertension Qualified Code(s): I15.8 - Other secondary hypertension Condition: Good Instructions: Hypertension (ED) Additional Instructions: Call 911 if you developed chest pain, shortness of breath, feeling the will pass out or any other symptoms that concern you Referrals: Follow-up, with your primary care provider in 2 days [Other] - As per Instructions
[2016-11-14] MEDS ORDERED: LISINOPRIL 20 MG TAB PO ONE (13:09)
== END 2016-11-14 13:25 | disposition home or self-care (01) ==
DX: I15.8 Other secondary hypertension (principal); F17.200 Nicotine dependence, unspecified, uncomplicated; J44.9 Chronic obstructive pulmonary disease, unspecified; I50.9 Heart failure, unspecified; Z79.82 Long term (current) use of aspirin

== ENCOUNTER 2016-12-07 21:27 | Emergency (ER) | payer MEDICAID ==
[2016-12-07 21:35] VITALS: TEMP 98.6
--- NOTE | 2016-12-07 22:02 | EDPHY ---
H & P Stated Complaint: SOB x2 days, fever and dizzy HPI/ROS: HPI CHIEF COMPLAINT: Shortness of breath, fever HISTORY OF PRESENT ILLNESS: This patient is a 46-year-old female significant past medical history for hypertension, diastolic heart failure, COPD on 3 L nasal cannula, obstructive sleep apnea, chronic pain, presents emergency room with 2 days of progressively worsening shortness of breath, cough, fever to 102 at home, worsening shortness of breath and a 3 lb weight gain. She states she is compliant with blood pressure medications and Lasix. She denies any chest pain. Main complaint is shortness of breath. Denies hemoptysis. Past Medical History: COPD on oxygen 3L, diastolic heart failure, hypertension , obstructive sleep apnea, chronic pain Past Surgical History: No recent surgical history Social History: Denies daily use of alcohol or drugs, does smoke tobacco daily , lives locally Family History: Noncontributory ROS REVIEW OF SYSTEMS: A comprehensive 10 point review of systems is otherwise negative aside from elements mentioned in the history of present illness. Exam Constitutional appears well nontoxic, triage nursing summary reviewed, vital signs reviewed, awake/alert. Vital signs noted to be hypertensive and hypoxic at triage. Eyes normal conjunctivae and sclera, EOMI, PERRLA. HENT normal inspection, atraumatic, moist mucus membranes, no epistaxis, neck supple/ no meningismus, no raccoon eyes. Respiratory clear breath sounds bilaterally, no wheezing, good air movement. Cardiovascular rate normal, regular rhythm, no murmur, no edema, distal pulses normal. Gastrointestinal soft, non-tender, no rebound, no guarding, normal bowel sounds, no distension, no pulsatile mass. Genitourinary no CVA tenderness. Musculoskeletal no midline vertebral tenderness, full range of motion, no calf swelling, no tenderness of extremities, no meningismus, good pulses, neurovascularly intact. Skin pink, warm, & dry, no rash, skin atraumatic. Neurologic awake, alert and oriented x 3, AAOx3, moves all 4 extremities equally, motor intact, sensory intact, CN II-XII intact, normal cerebellar, normal vision, normal speech. Psychiatric normal mood/affect. Heme/Lymph/Immune no lymphadenopathy. Differential Diagnosis: Includes but is not limited to in a particular order, COPD exacerbation, pneumonia, CHF, ACS, pneumothorax. Medical Decision Making: Plan for this patient DuoNeb breathing treatment, chest x-ray, blood work, IV fluid bolus, full edgerman EKG. Re-evaluate. Re-evaluation: EKG interpretation by me on record in [facility] system. Impression and time of EKG 2216, this is sinus rhythm rate of 67, this EKG is unchanged from her previous EKG dated specifically 11/14/2016. I do not appreciate acute ischemia specifically no ST elevation, ST depression, T-wave abnormalities prolonged intervals. Unremarkable EKG. ED x-ray chest one view: Negative for acute cardiopulmonary disease. 2311: This patient is refusing IV Lasix 40 mg I have ordered for her. She tells me that she does not want to be urinating all night. She tells me that she took 60 mg PO Lasix and still urinating from nap. I did reexamine her, at this time she is resting comfortably no acute distress. Denies chest pain or shortness of breath she speaking in clear full sentences. Her lungs are clear good air movement. No hypoxia. Resting comfortably. Plan will be to discharge. 1200AM: Re-evaluation this time patient resting comfortably. She was up multiple times to the bathroom urinating. She did take p.o. Lasix earlier today. She refused IV Lasix here. She denies chest pain or shortness of breath. Is no she did tell me she had a fever yesterday of 102. No fever here. Lactic acid and blood cultures were pulled. Lactic acid less than 2. No evidence of high white count or signs of infection. Chest x-ray shows no pneumonia. Chest x-ray shows no signs of heart failure. Her volume overload. Her BNP was slightly elevated. I did want to give her IV Lasix for this however she declined. She is urinating multiple times here with p.o. Lasix prior to arrival. Also I did give her 10 mg IV hydralazine as she takes hydralazine for blood pressure at home and when she arrived her blood pressure was very high it is now 160s/90s. She is resting comfortably no chest pain no shortness of breath she is agreeable for discharge. Did explain to her if she has worsening shortness of breath high fever vomiting or does not feel well she should return emergency room. I explained should be compliant with her blood pressure medication as well as her water pill. She understands that she needs to refrain from dietary indiscretion. She is comfortable this plan. I do not feel this patient benefit from hospitalization. She is at her baseline oxygen requirement 3 L come if she is not hypoxic, blood pressure improved here IV hydralazine. She refused IV Lasix. She does not appear to be in acute failure, or volume overload. No evidence of ACS. No evidence significant pneumonia. Recommend dietary discretion, continue blood pressure medications and p.o. Lasix. Return if worse. She understands. Source: Patient - Personal History LMP (Females 10-55): Hysterectomy Current Tetanus/Diphtheria Vaccine: Yes Current Tetanus Diphtheria and Acellular Pertussis (TDAP): Yes Tetanus Vaccine Date: 2011 - Medical/Surgical History Hx Asthma: No Hx Chronic Respiratory Disease: Yes Hx Diabetes: No Hx Cardiac Disease: Yes Hx Renal Disease: No Hx Cirrhosis: No Hx Alcoholism: No Hx HIV/AIDS: No Hx Splenectomy or Spleen Trauma: No Other PMH: COPD, CHF, chronic O2 use, brain lesions, HTN, heroin use, chronic pain, james, migraines, sleep apnea, Hysterectomy;MRSA 5-6 years, degenerative disc disease - Social History Smoking Status: Current every day smoker Constitutional: Initial Vital Signs Temperature (C) 37.0 C 12/07/16 21:32 Heart Rate 97 12/07/16 21:32 Respiratory Rate 20 12/07/16 21:32 Blood Pressure 236/110 H 12/07/16 21:32 O2 Sat (%) 86 L 12/07/16 21:32 O2 Delivery Mode Nasal Cannula,Humidified O2 (L/minute) 3 Allergies/Adverse Reactions: Sulfa (Sulfonamide Antibiotics) Allergy (Severe, Verified 11/14/16 10:53) CAN'T BREATHE metoclopramide HCl [From Reglan] Allergy (Intermediate, Verified 11/14/16 10:53) jaw clenched up tramadol HCl [From Ultram] Allergy (Unknown, Verified 11/14/16 10:53) TROUBLE BREATHING,HIVES amoxicillin trihydrate [From Augmentin] Allergy (Verified 11/14/16 10:53) potassium clavulanate [From Augmentin] Allergy (Verified 11/14/16 10:53) propranolol HCl [From Inderal] Allergy (Verified 11/14/16 10:53) Hives Home Medications: Medication Instructions Recorded amLODIPine BESYLATE [Norvasc 10 mg 10 mg PO DAILY 10/03/15 (*)] clonazePAM [klonoPIN (*)] 1 mg PO TID 10/03/15 Beclomethasone Qvar 80 [Qvar 80 2 puffs IH DAILY 10/06/15 (*)] Furosemide [Lasix 20 MG (*)] 20 mg PO TID PRN 10/06/15 Methadone HCl [Dolophine Intensol 220 mg PO ,18 10/06/15 10 mg/ml (*)] OXcarbazepine [Trileptal 300mg (*)] 600 mg PO DAILY 10/06/15 OXcarbazepine [Trileptal 300mg (*)] 900 mg PO HS 10/06/15 Zolpidem Tartrate [Ambien 10 mg] 10 mg PO HS PRN 10/06/15 Aspirin [Aspirin 325 mg (*)] 325 mg PO DAILY 01/29/16 Carisoprodol [Soma (*)] 350 mg PO QID PRN #20 tab 02/03/16 Lisinopril [Zestril 20 mg (*)] 20 mg PO BID 05/28/16 hydrALAZINE [Apresoline 50 mg (*)] 50 mg PO BIDMEAL 05/28/16 hydrOXYzine HCL [hydrOXYzine HCL 50 mg PO HS PRN 05/28/16 (RX)] Tiotropium Inhaler [Spiriva 18 mcg IH DAILY #1 mdi 05/31/16 Handihaler] Albuterol [Proventil Inhaler HFA 1 - 2 puffs IH DAILY PRN 10/05/16 (*)] clonIDINE [Catapres (*)] 0.3 mg PO TID 10/05/16 predniSONE 20 mg PO AD #10 tablet 10/05/16 Medical Decision Making - Diagnostics Imaging Results: Imaging Impressions Chest X-Ray 12/07/16 22:04 Impression: Findings suggestive of airways disease noted. - Data Points Laboratory Results: Laboratory Results 12/07/16 22:25 12/07/16 22:25 12/07/16 12/07/16 12/07/16 22:25 22:25 22:25 WBC 11.83 10^3/uL H 10^3/uL (3.80-9.50) RBC 4.01 10^6/uL L 10^6/uL (4.18-5.33) Hgb 12.4 g/dL L g/dL (12.6-16.3) Hct 35.8 % L % (38.0-47.0) MCV 89.3 fL fL (81.5-99.8) MCH 30.9 pg pg (27.9-34.1) MCHC 34.6 g/dL g/dL (32.4-36.7) RDW 13.1 % % (11.5-15.2) Plt Count 227 10^3/uL 10^3/uL (150-400) MPV 10.2 fL fL (8.7-11.7) Neut % (Auto) 72.8 % % (39.3-74.2) Lymph % (Auto) 17.5 % % (15.0-45.0) [place] % (Auto) 6.6 % % (4.5-13.0) Eos % (Auto) 1.8 % % (0.6-7.6) Baso % (Auto) 0.8 % % (0.3-1.7) Nucleat RBC Rel Count 0.0 % % (0.0-0.2) Absolute Neuts (auto) 8.62 10^3/uL H 10^3/uL (1.70-6.50) Absolute Lymphs (auto) 2.07 10^3/uL 10^3/uL (1.00-3.00) Absolute Monos (auto) 0.78 10^3/uL 10^3/uL (0.30-0.80) Absolute Eos (auto) 0.21 10^3/uL 10^3/uL (0.03-0.40) Absolute Basos (auto) 0.09 10^3/uL 10^3/uL (0.02-0.10) Absolute Nucleated RBC 0.00 10^3/uL 10^3/uL (0-0.01) Immature Gran % 0.5 % % (0.0-1.1) Immature Gran # 0.06 10^3/uL 10^3/uL (0.00-0.10) PT 13.0 SEC SEC (12.0-15.0) INR 0.99 (0.83-1.16) APTT 23.2 SEC SEC (23.0-38.0) VBG Lactic Acid Sodium 136 mEq/L mEq/L (134-144) Potassium 3.9 mEq/L mEq/L (3.5-5.2) Chloride 99 mEq/L mEq/L (97-110) Carbon Dioxide 27 mEq/l mEq/l (22-31) Anion Gap 10 mEq/L mEq/L (8-16) BUN 11 mg/dL mg/dL (7-23) Creatinine 0.6 mg/dL mg/dL (0.6-1.0) Estimated GFR > 60 Glucose 182 mg/dL H mg/dL (70-100) Calcium 9.1 mg/dL mg/dL (8.5-10.4) Total Bilirubin 0.5 mg/dL mg/dL (0.1-1.4) Conjugated Bilirubin 0.3 mg/dL mg/dL (0.0-0.5) Unconjugated Bilirubin 0.2 mg/dL mg/dL (0.0-1.1) AST 24 IU/L IU/L (14-46) ALT 32 IU/L IU/L (9-52) Alkaline Phosphatase 121 IU/L IU/L (38-126) Troponin I 0.020 ng/mL ng/mL (0-0.034) NT-Pro-B Natriuret Pep 2240 pg/mL H pg/mL (0-125) Total Protein 7.1 g/dL g/dL (6.3-8.2) Albumin 4.2 g/dL g/dL (3.5-5.0) 12/07/16 22:25 WBC RBC Hgb Hct MCV MCH MCHC RDW Plt Count MPV Neut % (Auto) Lymph % (Auto) [place] % (Auto) Eos % (Auto) Baso % (Auto) Nucleat RBC Rel Count Absolute Neuts (auto) Absolute Lymphs (auto) Absolute Monos (auto) Absolute Eos (auto) Absolute Basos (auto) Absolute Nucleated RBC Immature Gran % Immature Gran # PT INR APTT VBG Lactic Acid 1.8 mmol/L mmol/L (0.7-2.1) Sodium Potassium Chloride Carbon Dioxide Anion Gap BUN Creatinine Estimated GFR Glucose Calcium Total Bilirubin Conjugated Bilirubin Unconjugated Bilirubin AST ALT Alkaline Phosphatase Troponin I NT-Pro-B Natriuret Pep Total Protein Albumin Medications Given: Discontinued Medications Albuterol/Ipratropium (Duoneb) 3 ml IH EDNOW ONE Stop: 12/07/16 22:04 Last Admin: 12/07/16 22:40 Dose: 3 ml Furosemide (Lasix Injection) 40 mg IVP EDNOW ONE Stop: 12/07/16 22:22 Last Admin: 12/07/16 23:19 Dose: Not Given Hydralazine HCl (Apresoline) 10 mg IVP EDNOW ONE Stop: 12/07/16 22:23 Last Admin: 12/07/16 23:10 Dose: 10 mg Departure - Departure Disposition: Home, Routine, Self-Care Clinical Impression: COPD (chronic obstructive pulmonary disease) Qualifiers: COPD type: unspecified COPD Qualified Code(s): J44.9 - Chronic obstructive pulmonary disease, unspecified Condition: Good Instructions: COPD (Chronic Obstructive Pulmonary Disease) (ED) Additional Instructions: 1. Watch much fluids you take in. 2. Please be compliant with your Lasix in her blood pressure medications. 3. Return emergency room if he develops any worsening symptoms includes worsening shortness of breath, pain or vomiting or fever. Referrals: VIDHYA SCHAEFFER [Other] - As per Instructions
[2016-12-07] MEDS ORDERED: IPRATROPIUM/ALBUTEROL 3 ML DEYVIAL IH ONE (22:03)
[2016-12-07] MEDS ORDERED: NS 500 ML IV ONE (22:03)
--- NOTE | 2016-12-07 22:20 | CPEKG ---
Heart Rate: 67 RR Interval: 896 P-R Interval: 152 QRSD Interval: 82 QT Interval: 428 QTC Interval: 452 P [place]: 57 QRS [place]: 48 T Wave [place]: 15 EKG Severity - BORDERLINE ECG - EKG Impression: SINUS RHYTHM EKG Impression: PROBABLE LEFT ATRIAL ABNORMALITY Electronically Signed By: Jose Wagner 07-Dec-2016 23:05:39
[2016-12-07] MEDS ORDERED: FUROSEMIDE 40 MG/4 ML VIAL IVP ONE (22:21)
[2016-12-07] MEDS ORDERED: hydrALAZINE 20 MG/ML VIAL IVP ONE (22:22)
[2016-12-07 22:41] LABS: % IMMATURE GRANULYOCYTES 0.5 % (0.0-1.1); ABSOLUTE IMMATURE GRANULOCYTES 0.06 10^3/uL (0.00-0.10); ADD DIFF? NO; ADD MORPH? NO; ADD SCAN? NO; ATYPICAL LYMPHOCYTE FLAG 0 (0-99); FRAGMENT RBC FLAG 0 (0-99); HEMATOCRIT 35.8 % (38.0-47.0); HEMOGLOBIN 12.4 g/dL (12.6-16.3); LEFT SHIFT FLG 10 (0-99); LIPEMIA HEMOLYSIS FLAG 90 (0-99); MEAN CELL HEMOGLOBIN 30.9 pg (27.9-34.1); MEAN CELL HEMOGLOBIN CONCENTR. 34.6 g/dL (32.4-36.7); MEAN CELL VOLUME 89.3 fL (81.5-99.8); MEAN PLATELET VOLUME 10.2 fL (8.7-11.7); PLATELET CLUMPS FLAG 0 (0-99); PLATELET COUNT 227 10^3/uL (150-400); RED BLOOD CELL COUNT 4.01 10^6/uL (4.18-5.33); RED CELL DISTRIBUTION WIDTH 13.1 % (11.5-15.2)
[2016-12-07 22:46] VITALS: RESP 18
[2016-12-07 22:51] LABS: APTT 23.2 SEC (23.0-38.0); INR 0.99 (0.83-1.16)
[2016-12-07 22:53] LABS: ALANINE AMINOTRANSFERASE 32 IU/L (9-52); ALBUMIN 4.2 g/dL (3.5-5.0); ALKALINE PHOSPHATASE 121 IU/L (38-126); ANION GAP 10 mEq/L (8-16); ASPARTATE AMINOTRANSFERASE 24 IU/L (14-46); BILIRUBIN,TOTAL 0.5 mg/dL (0.1-1.4); BILIRUBIN-CONJUGATED 0.3 mg/dL (0.0-0.5); BILIRUBIN-UNCONJUGATED 0.2 mg/dL (0.0-1.1); CALCIUM 9.1 mg/dL (8.5-10.4); CARBON DIOXIDE 27 mEq/l (22-31); CHLORIDE 99 mEq/L (97-110); CREATININE 0.6 mg/dL (0.6-1.0); GLOMERULAR FILTRATION RATE > 60; GLUCOSE 182 mg/dL (70-100); POTASSIUM 3.9 mEq/L (3.5-5.2); SODIUM 136 mEq/L (134-144); TOTAL PROTEIN 7.1 g/dL (6.3-8.2)
[2016-12-08 00:27] VITALS: BP 167/101; PULSE 89; O2SAT 94
== END 2016-12-08 00:28 | disposition home or self-care (01) ==
DX: J44.9 Chronic obstructive pulmonary disease, unspecified (principal); F17.200 Nicotine dependence, unspecified, uncomplicated; I11.0 Hypertensive heart disease with heart failure; I50.9 Heart failure, unspecified; Z79.82 Long term (current) use of aspirin
CPT/HCPCS: 96374; J0360

== ENCOUNTER 2017-01-14 16:16 | Emergency (ER) | payer MEDICAID ==
[2017-01-14] MEDS ORDERED: ONDANSETRON 4 MG/2 ML VIAL ONE (16:21)
[2017-01-14] MEDS ORDERED: ONDANSETRON 4 MG/2 ML VIAL IVP ONE (16:22)
[2017-01-14] MEDS ORDERED: PROMETHAZINE HCL 25 MG/ML INJ IVP ONE (17:03)
[2017-01-14 17:08] LABS: % IMMATURE GRANULYOCYTES 1.2 % (0.0-1.1); ABSOLUTE IMMATURE GRANULOCYTES 0.23 10^3/uL (0.00-0.10); ABSOLUTE NRBC COUNT 0.05 10^3/uL (0-0.01); ADD DIFF? NO; ADD MORPH? NO; ADD SCAN? NO; ATYPICAL LYMPHOCYTE FLAG 0 (0-99); FRAGMENT RBC FLAG 0 (0-99); HEMATOCRIT 36.3 % (38.0-47.0); LEFT SHIFT FLG 30 (0-99); LIPEMIA HEMOLYSIS FLAG 80 (0-99); MEAN CELL HEMOGLOBIN 30.2 pg (27.9-34.1); MEAN CELL HEMOGLOBIN CONCENTR. 33.1 g/dL (32.4-36.7); MEAN CELL VOLUME 91.2 fL (81.5-99.8); MEAN PLATELET VOLUME 10.4 fL (8.7-11.7); NRBC-AUTO% 0.3 % (0.0-0.2); PLATELET CLUMPS FLAG 10 (0-99); PLATELET COUNT 192 10^3/uL (150-400); RED BLOOD CELL COUNT 3.98 10^6/uL (4.18-5.33); RED CELL DISTRIBUTION WIDTH 12.9 % (11.5-15.2)
[2017-01-14] MEDS ORDERED: NS 50 ML BAG IV ONE (17:08)
[2017-01-14 17:34] LABS: ANION GAP 14 mEq/L (8-16); CALCIUM 8.9 mg/dL (8.5-10.4); CARBON DIOXIDE 32 mEq/l (22-31); CHLORIDE 94 mEq/L (97-110); CREATININE 0.5 mg/dL (0.6-1.0); GLOMERULAR FILTRATION RATE > 60; GLUCOSE 156 mg/dL (70-100); SODIUM 140 mEq/L (134-144)
[2017-01-14] MEDS ORDERED: KETAMINE 100 MG/10 ML SYR IVP ONE (17:57)
[2017-01-14] MEDS ORDERED: KETOROLAC 30 MG/1 ML SDV IVP ONE (17:57)
[2017-01-14] MEDS ORDERED: FUROSEMIDE 40 MG/4 ML VIAL IVP ONE (17:58)
--- NOTE | 2017-01-14 18:01 | EDPHY ---
H & P Stated Complaint: cough, dizzy, COBB, HTN since yesterday Time Seen by Provider: 01/14/17 17:45 HPI/ROS: CHIEF COMPLAINT: Headache HISTORY OF PRESENT ILLNESS: The patient is a 46-year-old homeless female with a history of migraines, COPD and CHF and heroin abuse. She states that she has had a migraine throughout the day today and vomiting. She has not taken any medications. She was given Phenergan by nursing protocol and feels slightly better. She also has had a mild cough lately and states that her CHF has been fluctuating. She takes Lasix regularly. She has not had a fever. She denies shortness of breath on her baseline 3.5 L. she has not had any increased edema. REVIEW OF SYSTEMS: Constitutional: denies: chills, fever, recent illness, recent injury EENTM: denies: blurred vision, double vision, nose congestion Respiratory: See HPI Cardiac: denies: chest pain, irregular heart rate, lightheadedness, palpitations Gastrointestinal/Abdominal: denies: abdominal pain, diarrhea, nausea, vomiting, blood streaked stools Genitourinary: denies: dysuria, frequency, hematuria, pain Musculoskeletal: denies: joint pain, muscle pain Skin: denies: lesions, rash, jaundice, bruising Neurological: See HPI denies: numbness, paresthesia, tingling, dizziness, weakness Hematologic/Lymphatic: denies: blood clots, easy bleeding, easy bruising Immunologic/allergic: denies: HIV/AIDS, transplant EXAM: GENERAL: Well-appearing, obese and in no acute distress. HEAD: Atraumatic, normocephalic. EYES: Pupils equal round and reactive to light, extraocular movements intact, sclera anicteric, conjunctiva are normal. ENT: TMs normal, nares patent, oropharynx clear without exudates. Moist mucous membranes. NECK: Normal range of motion, supple without lymphadenopathy or JVD. LUNGS: Distant breath sounds No wheezes rales or rhonchi. HEART: Regular rate and rhythm without murmurs, rubs or gallops. ABDOMEN: Soft, nontender, normoactive bowel sounds. No guarding, no rebound. No masses appreciated. BACK: No CVA tenderness, no spinal tenderness, step-offs or deformities EXTREMITIES: Normal range of motion, no pitting or edema. No clubbing or cyanosis. NEUROLOGICAL: Cranial nerves II through XII grossly intact. Normal speech, normal gait. 5/5 strength, normal movement in all extremities, normal sensation PSYCH: Normal mood, normal affect. SKIN: Warm, dry, normal turgor, no visible rashes or lesions. Source: Patient Exam Limitations: No limitations - Personal History Current Tetanus/Diphtheria Vaccine: Yes Tetanus Vaccine Date: 2011 - Medical/Surgical History Hx Asthma: No Hx Chronic Respiratory Disease: Yes Hx Diabetes: No Hx Cardiac Disease: Yes Hx Renal Disease: No Hx Cirrhosis: No Hx Alcoholism: No Hx HIV/AIDS: No Hx Splenectomy or Spleen Trauma: No Other PMH: COPD, CHF, chronic O2 use, brain lesions, HTN, heroin use, chronic pain, james, migraines, sleep apnea, Hysterectomy;MRSA 5-6 years, degenerative disc disease - Social History Smoking Status: Current every day smoker Alcohol Use: Heavy Drug Use: Heroin Constitutional: Initial Vital Signs Temperature (C) 36.7 C 01/14/17 16:33 Heart Rate 88 01/14/17 16:33 Respiratory Rate 18 01/14/17 16:33 Blood Pressure 176/95 H 01/14/17 16:33 O2 Sat (%) 93 01/14/17 16:33 O2 Delivery Mode Nasal Cannula O2 (L/minute) 3 Allergies/Adverse Reactions: Sulfa (Sulfonamide Antibiotics) Allergy (Severe, Verified 11/14/16 10:53) CAN'T BREATHE metoclopramide HCl [From Reglan] Allergy (Intermediate, Verified 11/14/16 10:53) jaw clenched up tramadol HCl [From Ultram] Allergy (Unknown, Verified 11/14/16 10:53) TROUBLE BREATHING,HIVES amoxicillin trihydrate [From Augmentin] Allergy (Verified 11/14/16 10:53) potassium clavulanate [From Augmentin] Allergy (Verified 11/14/16 10:53) propranolol HCl [From Inderal] Allergy (Verified 11/14/16 10:53) Hives Home Medications: Medication Instructions Recorded amLODIPine BESYLATE [Norvasc 10 mg 10 mg PO DAILY 10/03/15 (*)] clonazePAM [klonoPIN (*)] 1 mg PO TID 10/03/15 OXcarbazepine [Trileptal 300mg (*)] 600 mg PO DAILY 10/06/15 OXcarbazepine [Trileptal 300mg (*)] 900 mg PO HS 10/06/15 Zolpidem Tartrate [Ambien 10 mg] 10 mg PO HS PRN 10/06/15 Lisinopril [Zestril 20 mg (*)] 20 mg PO BID 05/28/16 hydrALAZINE [Apresoline 50 mg (*)] 50 mg PO BIDMEAL 05/28/16 hydrOXYzine HCL [hydrOXYzine HCL 50 mg PO HS PRN 05/28/16 (RX)] Tiotropium Inhaler [Spiriva 18 mcg IH DAILY #1 mdi 05/31/16 Handihaler] Albuterol [Proventil Inhaler HFA 1 - 2 puffs IH DAILY PRN 10/05/16 (*)] clonIDINE [Catapres (*)] 0.3 mg PO TID 10/05/16 Ambien 01/14/17 Lasix 01/14/17 Methadone HCl 220 mg 01/14/17 SOMA 01/14/17 Medical Decision Making ED Course/Re-evaluation: 7:45 p.m. the patient is feeling somewhat better after migraine medication. She is no longer vomiting. She is requesting some more and I will treat her with Haldol and steroids. She denies any shortness of breath. X-ray and lab work was ordered by nursing protocol. She does appear to have mild pulmonary edema. She does not have any peripheral edema. I have given her an extra dose of Lasix and she has been urinating and states that she feels well from a respiratory status. She has not had a fever or recent illness. She declines further treatment for this. 9:00 p.m. the patient is feeling much better. She states that her migraine is gone. She denies any dyspnea. She is requesting headache medicine and nausea medicine to take with her. We discussed indications for returning . Differential Diagnosis: Partial list of the Differential diagnosis considered include but were not limited to; migraine, tension headache, vomiting, CHF exacerbation bronchitis and although unlikely based on the history and physical exam, I also considered pneumonia, acute coronary disease, pneumothorax. I discussed these differential diagnoses and the plan with the patient as well as the usual and expected course. The patient understands that the diagnosis is provisional and that in medicine we are not always correct and that further workup is often warranted. Usual and customary warnings were given. All of the patient's questions were answered. The patient was instructed to return to the emergency department should the symptoms at all worsen or return, otherwise to followup with the physician as we discussed. - Data Points Laboratory Results: Laboratory Results 01/14/17 Unknown 01/14/17 Unknown Medications Given: Discontinued Medications Acetaminophen (Tylenol) 1,000 mg PO EDNOW ONE Stop: 01/14/17 19:43 Last Admin: 01/14/17 20:18 Dose: 1,000 mg Furosemide (Lasix Injection) 40 mg IVP EDNOW ONE Stop: 01/14/17 17:59 Last Admin: 01/14/17 18:47 Dose: 40 mg Haloperidol Lactate (Haldol Injection) 2.5 mg IVP EDNOW ONE Stop: 01/14/17 19:43 Last Admin: 01/14/17 20:18 Dose: 2.5 mg Ketamine HCl (Ketamine) 15 mg IVP EDNOW ONE Stop: 01/14/17 17:58 Last Admin: 01/14/17 19:21 Dose: 15 mg Ketorolac Tromethamine (Toradol) 30 mg IVP EDNOW ONE Stop: 01/14/17 17:58 Last Admin: 01/14/17 18:47 Dose: 30 mg Ondansetron HCl (Zofran) 4 mg IVP EDNOW ONE Stop: 01/14/17 16:23 Last Admin: 01/14/17 16:25 Dose: 4 mg Promethazine HCl (Phenergan) 25 mg IVP EDNOW ONE Stop: 01/14/17 17:04 Last Admin: 01/14/17 17:12 Dose: 25 mg Promethazine HCl (Phenergan 25 Mg Prepack #4) 1 btl TAKEHOME EDNOW ONE Stop: 01/14/17 21:06 Last Admin: 01/14/17 21:19 Dose: 1 btl Departure - Departure Disposition: Home, Routine, Self-Care Clinical Impression: Migraine Qualifiers: Migraine type: with aura Status migrainosus presence: without status migrainosus Intractability: not intractable Qualified Code(s): G43.109 - Migraine with aura, not intractable, without status migrainosus CHF (congestive heart failure) Qualifiers: Congestive heart failure type: unspecified congestive heart failure type Congestive heart failure chronicity: chronic Qualified Code(s): I50.9 - Heart failure, unspecified Condition: Fair Instructions: Metoclopramide (By mouth), Promethazine (By mouth), Heart Failure (ED), Migraine Headache (ED) Referrals: NONE *PRIMARY CARE P,. [Primary Care Provider] - As per Instructions [facility] [Clinic] - As per Instructions
[2017-01-14] MEDS ORDERED: ACETAMINOPHEN 500 MG TAB PO ONE (19:42)
[2017-01-14] MEDS ORDERED: HALOPERIDOL LACT 5 MG/ML INJ IVP ONE (19:42)
[2017-01-14] MEDS ORDERED: PROMETHAZINE 25 MG PREPACK #4 BTL TAKEHOME ONE (21:05)
[2017-01-14 21:30] VITALS: BP 178/107; PULSE 92; RESP 18; TEMP 98.8; O2SAT 93
== END 2017-01-14 21:29 | disposition home or self-care (01) ==
LOC: EDUNIT#
DX: I11.0 Hypertensive heart disease with heart failure (principal); G43.109 Migraine with aura, not intractable, without status migrainosus; J44.9 Chronic obstructive pulmonary disease, unspecified; F17.200 Nicotine dependence, unspecified, uncomplicated
CPT/HCPCS: 96374; J1885; J1940; J2405; J2550

== ENCOUNTER 2017-03-21 01:43 | Emergency (ER) | payer MEDICAID ==
[2017-03-21 01:51] VITALS: TEMP 97.9
[2017-03-21] MEDS ORDERED: LISINOPRIL 20 MG TAB PO ONE (02:09)
[2017-03-21] MEDS ORDERED: amLODIPine BESYLATE 5 MG TAB PO ONE (02:10)
[2017-03-21] MEDS ORDERED: PROMETHAZINE HCL 25 MG TAB PO ONE (02:21)
--- NOTE | 2017-03-21 02:55 | EDPHY ---
H & P Stated Complaint: headache 3 days, out of htn meds, Time Seen by Provider: 03/21/17 02:05 HPI/ROS: HPI The patient presents with headache which has been present for the last 3 days which is intermittent and getting progressively worse. She has had headache which is frontal and maxillary bilaterally which is associated with rhinorrhea and sore throat. She has had low-grade fevers with this. She feels this is triggered a migraine headache. Additionally, she has run low on her clonidine and is taking it once daily instead of 3 times daily. Her blood pressures which are normally 170 over 90s have been in the 200 systolic for the last several days. She does have an appointment tomorrow with her primary care doctor she says and can get a refill of her clonidine then. She is otherwise taken Zofran, ibuprofen, and Tylenol with some improvement in her symptoms. She does not have any photophobia or neck stiffness. She does not have any chest pain, shortness of breath, abdominal pain. She does not have any confusion. REVIEW OF SYSTEMS Constitutional: No fever, no chills. Eyes: No discharge. ENT: No sore throat. Cardiovascular: No chest pain, no palpitations. Respiratory: No cough, no shortness of breath. Gastrointestinal: No abdominal pain, no vomiting. Genitourinary: No hematuria. Musculoskeletal: No back pain. Skin: No rashes. Neurological: Positive for headache. PMHx: CHF, hypertension, COPD, chronic pain syndrome Soc Hx: Housed PHYSICAL General Appearance: Alert, no distress Eyes: Pupils equal and round no pallor or injection ENT, Mouth: Mucous membranes moist, posterior pharynx is clear, there is tenderness of the maxillary sinuses bilaterally and clear rhinorrhea is present Respiratory: There are no retractions, lungs are clear to auscultation Cardiovascular: Regular rate and rhythm Gastrointestinal: Abdomen is soft and non-tender, no masses, bowel sounds normal Neurological: A&O, cranial nerves 2-12 intact, moves all extremities Skin: Warm and dry, no rashes Musculoskeletal: Neck is supple non tender Extremities: symmetrical, full range of motion Psychiatric: Patient is oriented X 3, there is no agitation Source: Patient Exam Limitations: No limitations - Personal History LMP (Females 10-55): Hysterectomy Current Tetanus/Diphtheria Vaccine: Yes Current Tetanus Diphtheria and Acellular Pertussis (TDAP): Yes Tetanus Vaccine Date: 2011 - Medical/Surgical History Hx Asthma: No Hx Chronic Respiratory Disease: Yes Hx Diabetes: No Hx Cardiac Disease: Yes Hx Renal Disease: No Hx Cirrhosis: No Hx Alcoholism: No Hx HIV/AIDS: No Hx Splenectomy or Spleen Trauma: No Other PMH: COPD, CHF, chronic O2 use, brain lesions, HTN, heroin use, chronic pain, james, migraines, sleep apnea, Hysterectomy;MRSA 5-6 years, degenerative disc disease - Social History Smoking Status: Current every day smoker Constitutional: Initial Vital Signs Temperature (C) 36.6 C 03/21/17 01:47 Heart Rate 98 03/21/17 01:47 Respiratory Rate 18 03/21/17 01:47 Blood Pressure 247/130 H 03/21/17 01:47 O2 Sat (%) 93 03/21/17 01:47 O2 Delivery Mode Room Air Allergies/Adverse Reactions: Sulfa (Sulfonamide Antibiotics) Allergy (Severe, Verified 03/21/17 01:51) CAN'T BREATHE metoclopramide HCl [From Reglan] Allergy (Intermediate, Verified 03/21/17 01:51) jaw clenched up tramadol HCl [From Ultram] Allergy (Unknown, Verified 03/21/17 01:51) TROUBLE BREATHING,HIVES amoxicillin trihydrate [From Augmentin] Allergy (Verified 03/21/17 01:51) potassium clavulanate [From Augmentin] Allergy (Verified 03/21/17 01:51) propranolol HCl [From Inderal] Allergy (Verified 03/21/17 01:51) Hives Home Medications: Medication Instructions Recorded amLODIPine BESYLATE [Norvasc 10 mg 10 mg PO DAILY 10/03/15 (*)] clonazePAM [klonoPIN (*)] 1 mg PO TID 10/03/15 OXcarbazepine [Trileptal 300mg (*)] 600 mg PO DAILY 10/06/15 OXcarbazepine [Trileptal 300mg (*)] 900 mg PO HS 10/06/15 Zolpidem Tartrate [Ambien 10 mg] 10 mg PO HS PRN 10/06/15 Lisinopril [Zestril 20 mg (*)] 20 mg PO BID 05/28/16 hydrALAZINE [Apresoline 50 mg (*)] 50 mg PO BIDMEAL 05/28/16 hydrOXYzine HCL [hydrOXYzine HCL 50 mg PO HS PRN 05/28/16 (RX)] Tiotropium Inhaler [Spiriva 18 mcg IH DAILY #1 mdi 05/31/16 Handihaler] Albuterol [Proventil Inhaler HFA 1 - 2 puffs IH DAILY PRN 10/05/16 (*)] clonIDINE [Catapres (*)] 0.3 mg PO TID 10/05/16 Ambien 01/14/17 Lasix 01/14/17 Methadone HCl 220 mg 01/14/17 SOMA 01/14/17 Amoxicillin 500 mg PO BID 7 Days cap 03/21/17 cloNIDine HCL [Clonidine HCl] 0.3 mg PO TID #10 tablet 03/21/17 Medical Decision Making Differential Diagnosis: This is a 47-year-old female with hypertension, diastolic CHF, COPD who presents from home with headache for the last 3 days associated with rhinorrhea and sore throat, low-grade fevers. Also running low on her blood pressure medicine so has been taking lower doses than usual of her clonidine. Differential diagnosis includes sinusitis, migraine headache, less likely hypertensive encephalopathy given no mental status changes. Also less likely subarachnoid hemorrhage given normal neurologic exam. In the emergency department, the patient was given her usual antihypertensive medications as well as Phenergan for her nausea. Additionally, she became nauseated and vomited all of her medications. An IV was in place, she was given a small fluid bolus in addition to IV Phenergan and IV antihypertensives. Her symptoms improved here. She has PMD follow-up tomorrow. I will give her a short course of clonidine which she can take until her appointment. - Data Points Medications Given: Discontinued Medications Amlodipine Besylate (Norvasc) 10 mg PO EDNOW ONE Stop: 03/21/17 02:11 Last Admin: 03/21/17 02:29 Dose: 10 mg Clonidine (Catapres) 0.3 mg PO EDNOW ONE Stop: 03/21/17 02:21 Last Admin: 03/21/17 02:29 Dose: 0.3 mg Clonidine (Catapres-Tts) 0.3 mg TD EDNOW ONE Stop: 03/21/17 03:17 Last Admin: 03/21/17 04:04 Dose: Not Given Enalaprilat (Vasotec Iv) 1.25 mg IVP EDNOW ONE Stop: 03/21/17 03:17 Last Admin: 03/21/17 03:57 Dose: 1.25 mg Hydralazine HCl (Apresoline) 50 mg PO EDNOW ONE Stop: 03/21/17 02:11 Last Admin: 03/21/17 02:51 Dose: 50 mg Hydralazine HCl (Apresoline) 10 mg IVP EDNOW ONE Stop: 03/21/17 03:19 Last Admin: 03/21/17 03:52 Dose: 10 mg Sodium Chloride (Ns) 500 mls @ 1,000 mls/hr IV EDNOW ONE PRN Reason: Protocol Stop: 03/21/17 03:58 Last Admin: 03/21/17 03:38 Dose: 500 mls Ketorolac Tromethamine (Toradol) 15 mg IVP EDNOW ONE Stop: 03/21/17 04:06 Last Admin: 03/21/17 04:06 Dose: 15 mg Lisinopril (Zestril) 20 mg PO EDNOW ONE Stop: 03/21/17 02:10 Last Admin: 03/21/17 02:29 Dose: 20 mg Promethazine HCl (Phenergan) 12.5 mg PO ONCE ONE Stop: 03/21/17 02:22 Last Admin: 03/21/17 02:27 Dose: 12.5 mg Promethazine HCl (Phenergan) 12.5 mg IVP ONCE ONE Stop: 03/21/17 03:17 Last Admin: 03/21/17 03:50 Dose: 12.5 mg Departure - Departure Disposition: Home, Routine, Self-Care Clinical Impression: Uncontrolled hypertension Sinusitis Qualifiers: Sinusitis location: unspecified location Chronicity: acute Recurrence: not specified as recurrent Qualified Code(s): J01.90 - Acute sinusitis, unspecified Headache Qualifiers: Headache type: unspecified Headache chronicity pattern: acute headache Intractability: not intractable Qualified Code(s): R51 - Headache Condition: Good Instructions: Hypertensive Crisis (ED) Additional Instructions: Please follow-up tomorrow with your primary care doctor as planned. You should return to the emergency room if your worse in any way. Referrals: [facility] SCHAEFFER [Other] - As per Instructions Prescriptions: Amoxicillin 500 mg PO BID 7 Days cap cloNIDine HCL [Clonidine HCl] 0.3 mg PO TID #10 tablet
[2017-03-21] MEDS ORDERED: ENALAPRILAT DIHYDRATE 1.25 MG/ML VIAL IVP ONE (03:16)
[2017-03-21] MEDS ORDERED: PROMETHAZINE HCL 25 MG/ML INJ IVP ONE (03:16)
[2017-03-21] MEDS ORDERED: hydrALAZINE 20 MG/ML VIAL IVP ONE (03:18)
[2017-03-21] MEDS ORDERED: NS 500 ML IV ONE (03:29)
[2017-03-21] MEDS ORDERED: KETOROLAC 15 MG/1 ML SDV IVP ONE (04:05)
[2017-03-21 07:53] VITALS: BP 184/100; PULSE 90; RESP 22; O2SAT 95
== END 2017-03-21 05:17 | disposition home or self-care (01) ==
DX: J01.90 Acute sinusitis, unspecified (principal); I11.0 Hypertensive heart disease with heart failure; I50.9 Heart failure, unspecified; J44.9 Chronic obstructive pulmonary disease, unspecified; F17.200 Nicotine dependence, unspecified, uncomplicated; E86.9 Volume depletion, unspecified
CPT/HCPCS: 96374; J0360; J1885; J2550

== ENCOUNTER 2017-05-07 11:54 | Emergency (ER) | payer MEDICAID ==
[2017-05-07 12:06] VITALS: BP 189/87; PULSE 58; RESP 16; TEMP 97.9; O2SAT 95
--- NOTE | 2017-05-07 12:28 | EDPHY ---
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 Her friend incised the area continues to remain tender. She has developed a new left inferior buttock lesion in the past few days. These lesions are in the location where she shaves her pubic hair. She denies genitalia lesion. Denies fever or chills. PHYSICAL EXAM (Prior to examination, patient consented to physical exam, hands were washed and my usual and customary physical exam procedures followed) Female communication electronic techniciannatanael Elkins at bedside at all times 1) GENERAL: Well-developed, well-nourished, alert and oriented. Appears to be in no acute distress. 2) HEAD: Normocephalic 3) HEENT: sclera anicteric 4) LUNGS: Breathing comfortably. [5) : Patient has shaved pubic hair. In her suprapubic region she has a single granulating lesion which is tender, nonfluctuant. Her left inferior buttock she has furuncular lesion which is tender, erythematous, indurated, nonfluctuant. No extension to the perineum or perianal region. (Yeimy Graham) Constitutional: Initial Vital Signs Temperature (C) 36.6 C 05/07/17 12:02 Heart Rate 58 L 05/07/17 12:02 Respiratory Rate 16 05/07/17 12:02 Blood Pressure 189/87 H 05/07/17 12:02 O2 Sat (%) 95 05/07/17 12:02 O2 Delivery Mode Room Air Allergies/Adverse Reactions: Sulfa (Sulfonamide Antibiotics) Allergy (Severe, Verified 05/07/17 12:01) CAN'T BREATHE metoclopramide HCl [From Reglan] Allergy (Intermediate, Verified 05/07/17 12:01) jaw clenched up tramadol HCl [From Ultram] Allergy (Unknown, Verified 05/07/17 12:01) TROUBLE BREATHING,HIVES amoxicillin trihydrate [From Augmentin] Allergy (Verified 05/07/17 12:01) potassium clavulanate [From Augmentin] Allergy (Verified 05/07/17 12:01) propranolol HCl [From Inderal] Allergy (Verified 05/07/17 12:01) Hives Home Medications: Medication Instructions Recorded amLODIPine BESYLATE [Norvasc 10 mg 10 mg PO DAILY 10/03/15 (*)] clonazePAM [klonoPIN (*)] 1 mg PO TID 10/03/15 OXcarbazepine [Trileptal 300mg (*)] 600 mg PO DAILY 10/06/15 OXcarbazepine [Trileptal 300mg (*)] 900 mg PO HS 10/06/15 Zolpidem Tartrate [Ambien 10 mg] 10 mg PO HS PRN 10/06/15 Lisinopril [Zestril 20 mg (*)] 20 mg PO BID 05/28/16 hydrALAZINE [Apresoline 50 mg (*)] 50 mg PO BIDMEAL 05/28/16 hydrOXYzine HCL [hydrOXYzine HCL 50 mg PO HS PRN 05/28/16 (RX)] Tiotropium Inhaler [Spiriva 18 mcg IH DAILY #1 mdi 05/31/16 Handihaler] Albuterol [Proventil Inhaler HFA 1 - 2 puffs IH DAILY PRN 10/05/16 (*)] clonIDINE [Catapres (*)] 0.3 mg PO TID 10/05/16 Ambien 01/14/17 Lasix 01/14/17 Methadone HCl 220 mg 01/14/17 SOMA 01/14/17 Doxycycline Hyclate 100 mg PO BID #14 tablet 03/21/17 cloNIDine HCL [Clonidine HCl] 0.3 mg PO TID #10 tablet 03/21/17 Doxycycline Hyclate 100 mg PO BID #14 capsule 05/07/17 MDM/Departure - [facility] ED Course/Re-evaluation: This patient has 2 lesions in the location where she shaves her pubic hair. I recommend letting her pubic hair grow for period of time. I recommended warm soaks. At this time I do not think that incision and drainage indicated however with warm soaks this may cause a focal area of fluctuance develop. Recommend 2 day recheck. She has history of sulfa allergy. She is started on doxycycline. Her tetanus is up-to-date. She feels comfortable with this discharge plan. All questions and concerns were addressed by myself. Usual and customary discharge precautions and instructions provided by myself.Care of patient under supervision of secondary supervising physician Dr Christina . ( Yeimy Graham) The patient was evaluated and managed by the physician sales assistants and salespersons. I have reviewed this chart and I agree with the findings and plan of care as documented , as indicated by my signature. I am the secondary supervising physician. ( Neris Christina) - Depart Disposition: Home, Routine, Self-Care Clinical Impression: Folliculitis Condition: Good Instructions: Doxycycline (By mouth), Folliculitis (ED) Additional Instructions: Apply warm soaks or take baths whenever possible. Do not pick or incise the area. Take medication as directed until finished. Prescriptions: Doxycycline Hyclate 100 mg PO BID #14 capsule Referrals: [facility],. [Clinic] - 2-3 days, call for appt.
--- NOTE | 2017-05-07 17:04 | ASDISCHSUM ---
Discharge Information Plan Status:Home with No Needs Medically Cleared to Leave: Discharge Date:05/07/2017 12:37 PM CM D/C Disposition:Home, Routine, Self-Care ADT D/C Disposition:Home, Routine, Self-Care Projected Discharge Date:05/07/2017 12:37 PM Transportation at D/C:Self Discharge Delay Reason: Follow-Up Date:05/07/2017 12:37 PM Discharge Slot: Final Diagnosis: Placement Information Patient Contact Information Contact Name:LEONIDES Relationship: Address:[address] [place] [address] Work Phone: City:[place] Alternate Phone: [facility]/Zip Code:[place] [address] Email: Financial Information Financial Class: Primary Plan 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 Emergency dept visits in Answers: 4+ last 6 months Score: 4 Date Signed: 05/07/2017 05:01 PM Electronically Signed By:Sylvie Wolff RN Intervention Information
== END 2017-05-07 12:37 | disposition home or self-care (01) ==
DX: L73.9 Follicular disorder, unspecified (principal); F17.200 Nicotine dependence, unspecified, uncomplicated

== ENCOUNTER 2017-11-08 09:11 | Inpatient (IN) | payer MEDICAID ==
--- NOTE | 2017-11-08 09:24 | EDPHY ---
General - History Smoking Status: Current every day smoker Time Seen by Provider: 11/08/17 09:15 Narrative: CHIEF COMPLAINT: Chest pain, shortness of breath HISTORY OF PRESENT ILLNESS: Patient presents by EMS and is seen at time of arrival with complaints of chest pain or shortness of breath. This started abruptly 1 hr ago while at rest watching television. It is left-sided pain. Does not radiate. Associated with shortness of breath and a "spike in my heart rate." Also associated with the need to have a bowel movement and with low oxygenation on her pulse oximeter. She has felt clammy and sweaty. She said difficulty ambulating because this. No abdominal pain. No flank pain. No headache or neck pain. No recent travel, trauma or surgery. She has had some recent lower extremity swelling. No history of PE. Has history of COPD, CHF and does require supplemental oxygen 24 hr a day. She has an appointment with her primary care physician today for ongoing hoarseness that she is associated with some difficulty swallowing recently. No other associated complaints or modifying factors. REVIEW OF SYSTEMS: Ten systems reviewed and are negative unless otherwise noted in the HPI PCP: Dr. Moore SPECIALISTS: Dr. Ashia Caballero, nephrology PAST MEDICAL HISTORY: Diastolic CHF, COPD, renal dysfunction PAST SURGICAL HISTORY: No recent surgeries SOCIAL HISTORY: Smokes less than 1 pack per day. 20+ pack year history. Lives here independently. Chronically dependent on supplemental oxygen FAMILY HISTORY: Noncontributory EXAMINATION General Appearance: Diaphoretic. Alert, no distress. Well-developed and well- nourished. Ambulated from the rney to her bed Head: normocephalic, atraumatic Eyes: Pupils equal and round, no conjunctival pallor or injection ENT, Mouth: Mucous membranes moist. Airway patent Neck: Normal inspection, supple, non-tender Respiratory: Mild rhonchi. No retractions or distress. Cardiovascular: Bradycardic rate. Regular rhythm. No murmur. Gastrointestinal: Obese Abdomen is soft and nontender Back: non-tender, no bony abnormalities Neurological: GCS 15. A&O, nonfocal, normal gait. Strength is symmetric in all 4 limbs. Appropriate mentation. Skin: Diaphoretic. Grossly intact. No petechiae or purpura Extremities: Nontender, minimal pedal edema. Psychiatric: Mood and affect normal DIFFERENTIAL DIAGNOSES: Including but not limited to ACS, CHF exacerbation, COPD exacerbation, symptomatic bradycardia, heart block, pneumonia, PE, pleural effusion MDM: 9:20 a.m. Chest pain or shortness of breath this started abruptly less than 1 hr prior to arrival. Patient is in no acute distress but is diaphoretic, intermittently bradycardic and hypertensive. She is awake and alert. She has no altered mentation. She is O2 dependent chronically and remained stable on 2 L at this time. EKG being obtained. Chest x-ray has been ordered. She has been placed on a library monitor. I have discussed the case with Dr. Callahan and he will evaluate the patient. 9:50 a.m. Troponin is negative. BNP is elevated at 1250. Chest x-ray pending. 10:20 a.m. Chest x-ray is negative for any significant findings, borderline cardiomegaly noted. At this time I do feel she will need to be admitted given her symptomatic bradycardia and complicated chest pain. I do not feel she warrants any diuretics or nitro at this time. 10:40 a.m. Patient re-evaluated. She still has chest pain and is mildly diaphoretic. Her heart rate varies 44-56 beats per minute. I have discussed the case with hospitalist Krista Ponce at this time. The patient be admitted to Dr. Lowry. Hospitalists are requesting consultation by Cardiology at this time. 10:48 a.m. Case discussed with agriculture technician Dr. Humphreys. He will provide consultation. The patient has been admitted stable condition and is awaiting her bed in the emergency department. EKG interpretation: Dr. Callahan Sinus bradycardia SUPERVISION: Patient was evaluated and examined in conjunction with my secondary supervising physician as documented. We have both examined the patient. (Alex Yoon) Medical Decision Making: I also saw this patient at 9:30 a.m.. I reviewed the history and the patient tells me that she had sudden onset of being flushed and nauseated. She had an urge to have diarrhea but did not. She noticed her heart was racing and she put herself on her pulse oximeter and found the heart rate to be 124. She says" I did not feel right". Her oxygen saturation was low at this reading of 72%. She is normally on supplemental oxygen. She then felt dizzy and like she would pass out. Had shortness of breath. She has some mild dull left anterior chest discomfort that does not radiate. She has had previous admission for low heart rate. Holter monitor has shown her heart rate to be occasionally in the low 30s. Patient also tells me that she has had increasing swollen ankles last 2 weeks. She has been hoarse and having trouble swallowing for about 2 weeks. General Appearance: Alert well-developed female moderate distress. Vital signs significant for heart rate 51 Eyes: Pupils equal and round no pallor or injection. ENT, Mouth: Mucous membranes are moist. Respiratory: There are no retractions, lungs are clear to auscultation. Cardiovascular: Regular rate and rhythm. Gastrointestinal: Abdomen is soft and nontender, no masses, bowel sounds normal. Neurological: Awake and alert, sensory and motor exams grossly normal. Skin: Diaphoretic Musculoskeletal: Neck is supple nontender. Extremities 2+ edema Psychiatric: Patient is oriented X 3, there is no agitation. (Kaz Callahan) - Diagnostics EKG Interpretation: EKG interpreted by me shows sinus bradycardia normal interval and axis. QRS is normal there is no significant ST elevation or depression. No arrhythmia. The rate is 47 EKG unchanged from previous EKG November 2016 Echo from 01/2016 reviewed by me (Kaz Callahan) Imaging Results: Imaging Impressions Chest X-Ray 11/08/17 09:20 Impression: Borderline-cardiomegaly with mild peribronchial thickening, but no focal infiltrate or pleural effusion. - Objective Vital Signs: Initial Vital Signs Temperature (C) 98.1 F 11/08/17 09:11 Heart Rate 51 L 11/08/17 09:11 Respiratory Rate 13 11/08/17 09:11 Blood Pressure 183/93 H 11/08/17 09:11 O2 Sat (%) 96 11/08/17 09:11 O2 Delivery Mode Nasal Cannula O2 (L/minute) 2 Allergies/Adverse Reactions: Sulfa (Sulfonamide Antibiotics) Allergy (Severe, Verified 11/08/17 09:21) CAN'T BREATHE metoclopramide HCl [From Reglan] Allergy (Intermediate, Verified 11/08/17 09:21) jaw clenched up tramadol HCl [From Ultram] Allergy (Unknown, Verified 11/08/17 09:21) TROUBLE BREATHING,HIVES amoxicillin trihydrate [From Augmentin] Allergy (Verified 11/08/17 09:21) potassium clavulanate [From Augmentin] Allergy (Verified 11/08/17 09:21) propranolol HCl [From Inderal] Allergy (Verified 11/08/17 09:21) Hives Home Medications: Medication Instructions Recorded amLODIPine BESYLATE [Norvasc 10 mg 10 mg PO DAILY 10/03/15 (*)] OXcarbazepine [Trileptal 300mg (*)] 600 mg PO DAILY 10/06/15 OXcarbazepine [Trileptal 300mg (*)] 900 mg PO HS 10/06/15 Lisinopril [Zestril 20 mg (*)] 20 mg PO BID 05/28/16 hydrALAZINE [Apresoline 50 mg (*)] 100 mg PO TID 05/28/16 hydrOXYzine HCL [hydrOXYzine HCL 50 mg PO BID PRN 05/28/16 (RX)] Albuterol [Proventil Inhaler HFA 1 - 2 puffs IH DAILY PRN 10/05/16 (*)] clonIDINE [Catapres (*)] 0.3 mg PO TID 10/05/16 Carisoprodol [Soma (*)] 350 mg PO QID PRN 01/14/17 Furosemide [Lasix 40 MG (*)] 40 mg PO BID@0530,1430 01/14/17 Gabapentin [Neurontin 300 MG (*)] 600 mg PO HS PRN 11/08/17 Ibuprofen [Motrin (*)] 800 mg PO DAILY PRN 11/08/17 Methadone 224mg 224 mg PO BID@0530,1430 11/08/17 Zolpidem Tartrate [Ambien 5MG (*)] 5 mg PO HS PRN 11/08/17 clonazePAM [Klonopin (*)] 0.5 mg PO TID PRN 11/08/17 Laboratory Results: Laboratory Results 11/08/17 09:00 11/08/17 09:00 11/08/17 11/08/17 11/08/17 09:22 09:00 09:00 WBC RBC Hgb Hct MCV MCH MCHC RDW Plt Count MPV Neut % (Auto) Lymph % (Auto) Hood % (Auto) Eos % (Auto) Baso % (Auto) Nucleat RBC Rel Count Absolute Neuts (auto) Absolute Lymphs (auto) Absolute Monos (auto) Absolute Eos (auto) Absolute Basos (auto) Absolute Nucleated RBC Immature Gran % Immature Gran # PT INR APTT D-Dimer 0.66 ug/mLFEU H ug/mLFEU (0.00-0.50) Sodium 143 mEq/L mEq/L (135-145) Potassium 3.8 mEq/L mEq/L (3.3-5.0) Chloride 101 mEq/L mEq/L (97-110) Carbon Dioxide 27 mEq/l mEq/l (22-31) Anion Gap 15 mEq/L mEq/L (8-16) BUN 17 mg/dL mg/dL (7-23) Creatinine 0.6 mg/dL mg/dL (0.6-1.0) Estimated GFR > 60 Glucose 111 mg/dL H mg/dL (70-100) Calcium 8.6 mg/dL mg/dL (8.5-10.4) Troponin I < 0.012 ng/mL ng/mL (0.000-0.034) NT-Pro-B Natriuret Pep 1250 pg/mL H pg/mL (0-125) Lipase 99 IU/L IU/L (23-300) TSH 4.230 uIU/mL uIU/mL (0.465-4.680) 11/08/17 11/08/17 09:00 09:00 WBC 9.59 10^3/uL H 10^3/uL (3.80-9.50) RBC 4.34 10^6/uL 10^6/uL (4.18-5.33) Hgb 13.1 g/dL g/dL (12.6-16.3) Hct 38.9 % % (38.0-47.0) MCV 89.6 fL fL (81.5-99.8) MCH 30.2 pg pg (27.9-34.1) MCHC 33.7 g/dL g/dL (32.4-36.7) RDW 12.4 % % (11.5-15.2) Plt Count 296 10^3/uL 10^3/uL (150-400) MPV 10.0 fL fL (8.7-11.7) Neut % (Auto) 45.2 % % (39.3-74.2) Lymph % (Auto) 42.1 % % (15.0-45.0) Hood % (Auto) 6.9 % % (4.5-13.0) Eos % (Auto) 4.2 % % (0.6-7.6) Baso % (Auto) 0.9 % % (0.3-1.7) Nucleat RBC Rel Count 0.0 % % (0.0-0.2) Absolute Neuts (auto) 4.33 10^3/uL 10^3/uL (1.70-6.50) Absolute Lymphs (auto) 4.04 10^3/uL H 10^3/uL (1.00-3.00) Absolute Monos (auto) 0.66 10^3/uL 10^3/uL (0.30-0.80) Absolute Eos (auto) 0.40 10^3/uL 10^3/uL (0.03-0.40) Absolute Basos (auto) 0.09 10^3/uL 10^3/uL (0.02-0.10) Absolute Nucleated RBC 0.00 10^3/uL 10^3/uL (0-0.01) Immature Gran % 0.7 % % (0.0-1.1) Immature Gran # 0.07 10^3/uL 10^3/uL (0.00-0.10) PT 12.8 SEC SEC (12.0-15.0) INR 0.94 (0.83-1.16) APTT 22.5 SEC L SEC (23.0-38.0) D-Dimer Sodium Potassium Chloride Carbon Dioxide Anion Gap BUN Creatinine Estimated GFR Glucose Calcium Troponin I NT-Pro-B Natriuret Pep Lipase TSH Departure - Departure Disposition: [facility] Inpatient Acute Clinical Impression: Acute chest pain, Symptomatic bradycardia Condition: Good
[2017-11-08 09:27] LABS: PLATELET COUNT 296 10^3/uL (150-400)
[2017-11-08 09:36] LABS: INR 0.94 (0.83-1.16); PROTIME(PATIENT) 12.8 SEC (12.0-15.0)
--- NOTE | 2017-11-08 11:13 | PDGENHP ---
History and Physical History and Physical: CC: CHEST PAIN, URGENCY TO HAVE BOWEL MOVEMENT HISTORY: This patient was at home today when she has sudden urge to have bowel movement though was never able to move her bowels. While this was going on she had onset of some chest pain, left-sided, associated with some sweating and clamminess. She does say that she may have felt more short of breath than usual. Patient comes into the ER with this chest discomfort still present. She has not been coughing has no pleuritic pain has no leg pain has no fever symptoms. At this time all of the presenting symptoms described above have resolved spontaneously. She feels a bit anxious but otherwise okay She does note that she has had some blurring of her vision intermittently over the last 2 weeks and has blurry vision at this time. Other than the symptoms she complains mostly of having a lot of stress related to taking care of her mother recently. Notably the patient does have COPD and is on chronic oxygen at 2-3L at home around the clock. She also has a history of presenting to the emergency room here repeatedly with chest pain and/or dyspnea, with 5 at of her last 6 hospital admissions here having main complaints of dyspnea and chest pain. This is all since May of 2015. She had a normal coronary angiography in May 2015. In the past 20 months she has had 2 myocardial perfusion studies without evidence of ischemia or wall motion abnormalities, and 2 CT angios of the chest with no PE and no other acute findings, primarily atelectasis. She also has had a diagnosis of malignant hypertension and difficult to control hypertension and has a CT angio of the abdomen in 2016 that showed no evidence of vascular disease. She does have vascular risk factors including obesity, smoking, family history, uncontrolled hypertension. Also notable is the fact that she has been using high doses of ibuprofen recently due to worsening back pain problems. This could potentially aggravate her hypertension issues ROS: A comprehensive 10 system review revealed no other significant findings PAST MEDICAL HISTORY: Severe and chronically uncontrolled hypertension Repeated episodes of chest discomfort and acute dyspnea, workup has always been unrevealing for any acute cardiopulmonary abnormality so far Chronic hypoxemic respiratory failure with chronic obstructive lung disease, ongoing tobacco use Chronic sinus bradycardia, asymptomatic Chronic tobacco abuse, ongoing Morbid obesity Chronic pain syndrome, mostly related to her back but other areas as well Chronic daily use 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 Still using daily tobacco, has cut back to 5 cigarettes per day but is using a vapor 10 as well No alcohol use MEDICATIONS: She is a very long list of medicines but prominently these include high doses of clonidine Norvasc lisinopril Apresoline and also is on Lasix. Also she is on a total of 448 mg daily of methadone PHYSICAL EXAMINATION: Vital Signs: Blood pressure is very high initially 183/93 in the ER, and remained in that range through most of the early afternoon, however now up to 240s/150, confirmed by multiple checks with manual cuff; pulse in the mid 40s to mid 50s which is typical for her chronically, respirations 13-18 and oxygenating well on 2 L nasal cannula Board Member: Sinus bradycardia Examination: General: alert, oriented, good mentation, relaxed Skin: warm, dry, good color, no rash HEENT: normal Neck: no mass or jvd Resps: relaxed Lungs: clear breath sounds Heart: regular, no murmur Abdomen: soft, nondistended, nontender, +BS, no mass Upper Extremities: normal Lower Extremities: no edema, warm No Bleeding or bruising Neurologic: normal speech/language, 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, no focal weakness IV site: looks normal LABORATORY DATA: White blood cell count elevated slightly but with a predominantly elevated lymphocyte count of 4000, normal neutrophils Negative troponin, slightly elevated BNP, otherwise unremarkable Chem panel TSH is normal 12 lead EKG done in the ER, my interpretation of the tracing: Sinus bradycardia which is chronic for her, presence of a U wave, but no other abnormality RADIOLOGY STUDIES: Chest x-ray done in the ER, my interpretation of the images: Mildly enlarged cardiac silhouette but no evidence of acute heart failure or other acute cardiopulmonary changes. Poor inspiration with some crowding of lung structures ASSESSMENT: # MALIGNANT HYPERTENSION, despite self-reported excellent compliance with 5 different blood pressure medications * Currently with some blurring of vision and mild changes of papilledema of the left eye on exam; no evidence of other end-organ damage at the moment, she does have some headache symptomatically without associated neuro symptoms * Current home medicines include clonidine 0.3 three times daily, lisinopril 20 twice daily, hydralazine 100 twice daily, Lasix 40 mg daily, Norvasc 10 mg daily ; the patient reports good compliance with all of these medicines on a regular basis # BLURRY VISION AND PAPILLEDEMA LEFT EYE # ACUTE CHEST PAIN AND DYSPNEA in a patient with several previous hospital presentations for the same symptoms * A believe that her hypertension and some anxiety or most likely the cause of her symptoms at home today, but she is at risk for several other possible causes * Notably the patient has had normal angiography and 2 myocardial perfusion stress studies with no evidence of ischemia or wall motion abnormalities, the most recent 16 months ago, and also has had 2 negative chest CTs in the last 20 months. There is currently no evidence of ischemia heart failure or acute change in her chronic respiratory failure at this time and her pulse is in her usual 45-50 range. My suspicion for an acute coronary episode or a PE is quite low. However she continues to smoke, has severe uncontrolled hypertension, and has obesity and family history of coronary disease. One concern is the frequency with which she is getting CT scans and myocardial perfusion studies. After the current perfusion study recommended by Dr. Humphreys, she will of had 6 perfusion studies and 6 CT scans in the past 17 months. Given her lifestyle risk factors and other issues 1 can reliably predict that she will continue to come to the hospital with similar episodes of symptoms, with high likelihood of recommended repeat studies. All of this should be taken into account when assessing her episodes of symptoms. * She describes feeling palpitations at home, and it is uncertain if she could of had AFib or some other arrhythmia causing her symptoms; see below # QUESTION OF POSSIBLE TACHYCARDIC EPISODE AT HOME TODAY * Past Cardiac evaluation for bradycardia included a 1 month outpatient heart monitor which showed only sinus bradycardia in the mid 40s to 50s, and she is currently in a sinus bradycardia here now; warrant cardiac monitoring here at this time * Of note the patient is on a huge dose of methadone and this is well known to cause QT prolongation as well as arrhythmia related sudden # HIGH CUMULATIVE MEDICAL RADIATION DOSES IN THE PAST 2 YEARS AT THIS HOSPITAL * See comments above under chest pain discussion # ABSENCE OF ACUTE DECOMPENSATION OF HER CHRONIC HYPOXEMIC RESPIRATORY FAILURE # CHRONIC BRADYCARDIA stable, with negative evaluation for any concerning cardiac or other etiologies in the past including long-term monitor # COPD/EMPHYSEMA * Continues to use tobacco on a daily basis though has cut down significantly and is continuing to attempt quitting # MULTIPLE RISK FACTORS FOR VASCULAR DISEASE but no documented vascular disease on multiple evaluations to date * Of concern she continues to smoke and has ongoing uncontrolled hypertension despite multiple medicines # ONGOING TOBACCO ABUSE * Encouraging has cut back to 5 cigarettes per day but is also using of a mckeon; I did discuss with her that if a pen use of tobacco is not safe and is not recommended for her # CHRONIC PAIN SYNDROME WITH CHRONIC PRESCRIBED METHADONE TOTAL 448 MG PER DAY * This dosage, despite how huge it is, is well documented and no dose to be her chronic dose; of concern is the propensity for methadone to cause QT prolongation and arrhythmia related along with her risks of developing heart disease # INTOLERANCE OF BETA BLOCKERS ?? * She states that at 1 point she had some hives, and was taking Inderal at the time although at that time she was taking other medications and had a lot of other things going on in life including that she had just been placed in half-way. Is not clear that the beta-blockers were actually the cause of her hives, and there was no reaction worse than hives involved in the episode which has never recurred PLANS: -inpatient admission to Step-Down Unit -aggressive treatment of her blood pressures with IV medication, with a goal of getting her down to 170-175 systolic for the moment, will try to not go below that due to auto regulation issues intracranially -eventually will need to get her on a more effective outpatient blood pressure regimen; adding Aldactone may be reasonable, I will review this with her nephrology service. I also wonder if she might actually be able to tolerate some beta-michaela and we might try that in the hospital to see that she does not have any untoward reaction. -follow her left eye very closely -cardiac monitoring for arrhythmia -repeat cardiac troponin -the patient has been seen by Dr. Stanley Humphreys and he has ordered an echocardiogram, will review that when it is done -Dr. Humphreys is recommending a nuclear stress test with myocardial perfusion imaging -strongly encouraged her to continue to trying get rid of all of her tobacco -continue her usual high-dose methadone here and follow closely with EKG changes to look for any QT prolongation (not seen on the ER EKG); if there is QT prolongation or any ventricular arrhythmias, will need to reassess the use of her methadone and talk with her pain management team as this could put her at high risk for sudden . I have reviewed the patient's case in detail with Dr. Stanley Humphreys I have reviewed the patient's past medical records as part of this assessment, including multiple past hospital admissions as well as outpatient laboratory data
[2017-11-08] MEDS ORDERED: ALBUTEROL 60 PUFFS/8 GM MDI IH PRN (11:16)
[2017-11-08] MEDS ORDERED: GABAPENTIN 300 MG CAP PO PRN (11:16)
[2017-11-08] MEDS ORDERED: ONDANSETRON 4 MG/2 ML VIAL IVP PRN (11:22)
[2017-11-08] MEDS ORDERED: ACETAMINOPHEN 325 MG TAB PO PRN (11:22)
--- NOTE | 2017-11-08 13:59 | ECHO ---
[email or web address] [address] [address] Main: [phone] Fax: Transthoracic Echocardiogram Name: ANGEL AREVALO MR#: [id number] Study Date: 11/08/2017 Study Time: 12:04 PM Date of : 1970 Age: 47 year(s) Height: 167.6 cm (66 in.) Weight: 110.22 kg (243 lb.) BSA: 2.17 m2 Gender: Female Examination: Echo Indication: Chest pain/SOB Image Quality: Contrast: Requested by: Billy Lowry BP: 187 mmHg/86 mmHg Heart Rate: Rhythm: Indication: Chest pain/SOB Procedure Staff Electronic Warfare Linguist: Lisa Rodriguez АНДРЕЙ Reading Physician: Requesting Provider: Measurements: Chambers Valvular Assessment AV/MV Valvular Assessment TV/PV Normal Normal Normal Name Value Range Name Value Range Name Value Range Ao Eli (MM): 3.0 cm (2.2 cm-3.7 AV meanP mmHg ( - ) TR Vmax: 3.47 mm/s ( - ) cm) MV E Vmax: 1.16 m/s ( - ) TR PGmax: 48 mmHg ( - ) IVSd (2D): 1.4 cm (0.6 cm-1.1 MV A Vmax: 0.55 m/s ( - ) syst. PAP: 53 mmHg ( - ) cm) MV E/A: 2.11 ( - ) LVDd (2D): 4.5 cm (3.9 cm-5.3 cm) LVDs (2D): 2.9 cm (2.1 cm-4 cm) LVPWd (2D): 1.3 cm ( - ) LVOTd 1.8 cm 1.8 cm mm LVEF (MOD4): 66 % (>=55 %) EF Range: 65-70 % Continued Measurements: Chambers Valvular Assessment AV/MV Valvular Assessment TV/PV Name Value Name Value Name Value LADs: 5.0 cm MV E' Septal: 0.04 m/s CVP (est.): 5 mmHg LADs Lon.1 cm MV E/E' Septal: 26.00 LA Area: 23.9 cm2 MV E/E' Lateral: 18.30 MR Vena Contracta: 0.2 cm Additional Vessels Name Value Patient: ANGEL AREVALO Study Date: 11/08/2017 Page 1 of 2 12:04 PM Ao Ascendin.4 cm Findings: Left Ventricle: Normal size left ventricle. No LV hypertrophy. Normal global systolic LV function. The ejection fraction is estimated to be 65-70 %. No regional wall motion abnormality. Diastolic dysfunction is present. . Right Ventricle: Normal size right ventricle. Left Atrium: The left atrium is moderately dilated. Right Atrium: The right atrium is normal in size. Mitral Valve: The mitral valve is normal in appearance and function. Mild to moderate mitral regurgitation. Aortic Valve: The aortic valve is normal in appearance and function. Tricuspid Valve: The tricuspid valve is normal in appearance and function. Mild tricuspid regurgitation is present. RVSP is 53mmHG.. Pulmonic Valve: The pulmonic valve is normal in appearance and function. Trivial pulmonic valve regurgitation. Aorta: The aorta is normal. Pericardium: No pericardial effusion. There is pericardial fat. (No Signature Object) Patient: ANGEL AREVALO Study Date: 11/08/2017 Page 2 of 2 12:04 PM [id number]
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
[2017-11-08] MEDS: FUROSEMIDE 40 MG TAB PO SCH (14:50)
[2017-11-08] MEDS: clonazePAM 0.5 MG TAB PO PRN ×2 (15:02→22:30)
[2017-11-08] MEDS: METHADONE HCL 10 MG/ML UDSYR PO SCH (15:52)
--- NOTE | 2017-11-08 16:03 | ASMTCMCOM ---
CM Note CM Note Notes: 11/08/2017 Case Management Note Reviewed chart. Pt admitted for work up r/t chest pain and shortness of breath. Pt is and independent in ADL's prior to admission. She has a siginficant history of COPD and CHF requiring supplemental oxygen 24 hours a day. There are no PT or OT evals ordered at this time. Referred pt to [facility] jocelyn Pruitt [phone] for resource support after d/c. Case Management d/c poc: to be determined. Case Management to follow. Date Signed: 11/08/2017 04:02 PM Electronically Signed By:Milly Carrizales RN
--- NOTE | 2017-11-08 17:21 | PDMN ---
Medical Necessity Medical necessity: C/M review: est. > 2 MN LOS for eval and TX of acute and persistent malignant hypertension despite self-reported excellent compliance with five different BP medications, blurry vision and papilledema left eye, acute chest pain and dyspnea, question of possible tachycardia at home today, absence of acute decompensation of chronic hypoxemic respiratory failure requiring Cardiology consult, planned aggressive treatment of blood pressures with IV medication as needed, planned 11/09/2016 nuclear stress test with myocardial perfusion scan, MD strongly encouraged patient to get rid of all her tobacco, ongoing cardiac monitoring, monitor left eye closely, pulse oximetry, supplemental O2, continue patient's usual high-dose methadone and follow closely with EKG changes to look for any QT prolongation, comorbid history of high cumulative medical radiation doses in the past two years at [facility] (CT scans and myocardial perfusion scans), chronic bradycardia, COPD / emphysema, multiple risk factors for vascular disease, ongoing tobacco abuse, chronic pain syndrome with chronic prescribed methadone total 448 mg per day, questionable intolerance of beta blockers per H/P.
[2017-11-08] MEDS: OXcarbazepine 300 MG TAB PO SCH (20:26)
[2017-11-08] MEDS: LISINOPRIL 20 MG TAB PO SCH (20:27)
[2017-11-08] MEDS: CARISOPRODOL 350 MG TAB PO PRN (20:27)
[2017-11-08] MEDS: ZOLPIDEM TARTRATE 5 MG TAB PO PRN (22:30)
[2017-11-09] MEDS: CARISOPRODOL 350 MG TAB PO PRN ×4 (02:58→21:40)
[2017-11-09] MEDS ORDERED: METHADONE PO SCH (05:30)
[2017-11-09] MEDS ORDERED: METHADONE HCL 1 MG/ML 500ML BULK BOTTLE PO SCH (05:30)
[2017-11-09] MEDS: FUROSEMIDE 40 MG TAB PO SCH (05:45)
[2017-11-09] MEDS: METHADONE HCL 10 MG/ML UDSYR PO SCH ×2 (05:45→15:58)
[2017-11-09] MEDS: clonazePAM 0.5 MG TAB PO PRN ×3 (05:51→21:41)
[2017-11-09] MEDS ORDERED: REGADENOSON 0.4 MG/5 ML SYR IVP ONE (09:01)
--- NOTE | 2017-11-09 09:12 | PDCARPN ---
Cardiology Progress Note Chief Complaint: Nausea/SOB Assessment/Plan: Assessment: Carmina is a 47 y/o F with a history of poorly controlled HTN, DM, obesity, tobacco use, bradycardia, COPD, and chronic pain on Methadone admitted with nausea, atypical chest pain, and SOB. She had a comprehensive cardiac work-up over the past few years. A angiogram in 11/2014 which showed normal cors and a recent cardionet monitor showed bradcardia without other arrhythmias. Her troponins have been negative x2 and BNP was elvated at 1250. A echo showed preserved LV function without wall motion abnormalities and mild to moderate MR. A nuc is currently pending. Plan: 1. HTN- with hypertensive emergency last night. Currently 140-150/70 but she did spike into the 180's earlier this morning and has been as low as 107. I would continue her current medical regimen. Aldactone could be added for better control if needed. 2. CP- normal cath in 2014. Nuc pending 3. Chronic pain on Methadone- QTc currently 411. 4. Bradycardia- chronic, No significant pauses or arrhythmias on tele. 5. COPD- on continuous O2 at home. She has been unable to stay on it continuously when she leaves the house b/c her tanks are too small. This could be contributing to her stress and HTN. Recommended bigger portable tanks. HTN is better controlled today. If her nuc is negative ok to d/c home from a cardiac standpoint. 11/09/17 09:46 Subjective: She currently denies any CP, dizziness, or SOB Objective: Vital Signs (8 Hrs) Temp Pulse Resp BP Pulse Ox 11/09/17 07:38 36.8 C 51 L 21 H 184/91 H 93 11/09/17 05:47 59 L 17 129/67 H 98 11/09/17 04:00 59 L 17 129/67 H 95 11/09/17 02:00 53 L 18 116/51 L 95 Intake/Output (24 Hrs) 11/08/17 11/09/17 11/10/17 05:59 05:59 05:59 Intake Total 1400 Balance 1400 Intake: Oral (ml) 1400 Other: Weight 110.4 kg Number of Voids Toilet 5 Result Diagrams: 11/08/17 09:00 11/08/17 09:00 Cardiac Labs: Cardiac Lab Results (72 Hrs) 11/08/17 14:18 Troponin I < 0.012 Telemetry: SB - Physical Exam Constitutional: obese Cardiovascular: regular rate and rhythm, no murmurs, no rubs, no gallops Respiratory: clear to auscultate bilat, no crackles, no wheezes Skin: no edema Neurologic: AAOx3 ICD10 Worksheet Patient Problems: Problems Problem Status Onset Acute chest pain Acute Symptomatic bradycardia Acute Bradycardia Acute CHF (congestive heart failure) Acute CHF exacerbation Acute COPD (chronic obstructive pulmonary disease) Acute Chest pain Acute Chest pain at rest Acute Hypertension Acute Hypoxia Acute Knee sprain Acute Migraine Acute Shortness of breath Acute Shortness of breath on exertion Acute Syncope and collapse Acute Uncontrolled hypertension Acute
[2017-11-09] MEDS: hydrOXYzine HCL 50 MG TAB PO PRN ×2 (09:26→21:44)
[2017-11-09] MEDS: ENOXAPARIN 40 MG/0.4 ML SYR SC SCH (09:27)
[2017-11-09] MEDS: LISINOPRIL 20 MG TAB PO SCH ×2 (09:27→21:41)
--- NOTE | 2017-11-09 09:51 | CPR ---
[f rep st] NONINVASIVE CARDIAC PROCEDURE REPORT DATE OF PROCEDURE: 11/09/2017 PROCEDURE: Lexiscan nuclear stress test. INDICATION: The patient is a 47-year-old female with multiple risk factors for coronary artery disea se including poorly controlled hypertension, diabetes, obesity, and ongoing tobacco use. She present ed to the hospital complaining of nausea, shortness of breath, and mild chest discomfort. PROCEDURE IN DETAIL: Consent was obtained, and the patient was placed on continuous telemetry. Her resting EKG revealed sinus bradycardia at a heart rate of [address]-T wave sewell es. The patient was infused with Lexiscan and denied any symptoms associated with the infusion. She remained in sinus bradycardia, but her rate increased into the 50s with the infusion. There were no significant ST-T wave changes. Her blood pressure at rest was 152/73. Her pressure decreased to 14 3/78 with the infusion. Her oxygen saturation remained stable in the 90s on 2 L of oxygen throughout the procedure. PLAN: Await nuclear images. /[id number]/MODL
[2017-11-09] MEDS: OXcarbazepine 300 MG TAB PO SCH ×2 (10:32→21:41)
--- NOTE | 2017-11-09 12:14 | HOSPPROG ---
Hospitalist Progress Note Assessment/Plan: DIAGNOSES: # MALIGNANT HYPERTENSION, despite self-reported excellent compliance with 5 different blood pressure medications * Currently with some blurring of vision and mild changes of papilledema of the left eye on exam; no evidence of other end-organ damage at the moment, headache better today * Current home medicines include clonidine 0.3 three times daily, lisinopril 20 twice daily, hydralazine 100 twice daily, Lasix 40 mg daily, Norvasc 10 mg daily ; the patient reports good compliance with all of these medicines on a regular basis # BLURRY VISION AND PAPILLEDEMA LEFT EYE * Mild examination changes and mild change in vision so far with still quite functional vision, improved on exam today compared to yesterday * # ACUTE CHEST PAIN AND DYSPNEA in a patient with several previous hospital presentations for the same symptoms * No evidence for coronary or cardiac cause of pain, suspect this pain which she gets for currently is due to uncontrolled hypertension and anxiety though she did have some palpitations yesterday and question whether she could have had an arrhythmia that was uncomfortable for her, none seen on monitoring here so far; she did have a elevated D-dimer but she has had elevated D-dimers in the absence of PE or DVT in the past at this point my clinical suspicion for thromboembolic disease is very low and I will not pursue it further * Patient has now had multiple hospital admissions for chest pain/short of breath, and has multiple study showing no evidence of vascular disease. 1 of the major issues here is her radiation dosing which I described below, however we should moving forward make significant efforts to avoid radiation exposures unless absolutely necessary, part of this will be making mcdonald or choices about imaging studies, part will be managing all of her medical problems to avoid episodic symptoms and lowering her vascular risks # QUESTION OF POSSIBLE TACHYCARDIC EPISODE AT HOME on admission day * Of note the patient is on a huge dose of methadone and this is well known to cause QT prolongation as well as arrhythmia related sudden ; her current QT interval is in normal range and we have not yet seen any arrhythmia here on monitoring * Past Cardiac evaluation for bradycardia included a 1 month outpatient heart monitor which showed only sinus bradycardia in the mid 40s to 50s, and she is currently in a sinus bradycardia here now; warrant cardiac monitoring here at this time # NEWLY IDENTIFIED PULMONARY HYPERTENSION measured at 53 * Seen on echo done yesterday, likely related to obesity hypoventilation and sleep apnea, however other physiology he has may be playing a role in need further assessment * Her MR is still mild to moderate and at this point doubt that that would be contributing to her pulmonary hypertension or symptoms, however treating her hypertension to prevent worsening of the MR will be crucial moving forward # HIGH CUMULATIVE MEDICAL RADIATION DOSES IN THE PAST 2 YEARS AT THIS HOSPITAL * She has now had 2 CT scans of chest, and CT abdomen as well as 3 myocardial perfusion imaging studies in the last 20 months long without prior history of other CT scans and coronary angiography. This is quite a high radiation exposure in a short period of time and it is quite concerning that given her multiple medical issues she is likely to continue to present with acute episodes of chest pain. She does have risk factors for coronary disease, however given the fact that all of her multiple studies have shown no evidence of thromboembolic disease, coronary disease, or renal artery disease decision making for her acute episode should carefully take into account her ongoing cumulative radiation exposure. I reviewed this in detail with Dr. Jose C Ang her truck packer and he is in agreement with this. I will trying communicate this issue to our emergency department as well and see if they are able to put this somehow in file for their evaluating staff to consider # ABSENCE OF ACUTE DECOMPENSATION OF HER CHRONIC HYPOXEMIC RESPIRATORY FAILURE # CHRONIC BRADYCARDIA stable, with negative evaluation for any concerning cardiac or other etiologies in the past including long-term monitor # CHRONIC HYPOXEMIC RESPIRATORY FAILURE ON 24 HR PER DAY OXYGEN AT HOME, currently stable * Prior history of sleep apnea and use of CPAP though lost her CPAP device a couple years ago when she was homeless and is not using that device now * Describe symptoms highly suggestive of obesity hypoventilation syndrome and given her habitus would be quite surprised if she did not have that * Ongoing tobacco use includes cigarettes which she has cut from a pack a day down to 5 cigarettes per day but she is using a vapor pen for large amounts of tobacco * Previously diagnosed with COPD though I am not aware that she has had PFTs, and her last CT scan 16 months ago did not mention in the radiologist report changes of emphysema # MULTIPLE RISK FACTORS FOR VASCULAR DISEASE but no documented vascular disease on multiple evaluations to date * Of concern she continues to smoke and has ongoing uncontrolled hypertension despite multiple medicines; family history and obesity or her other factors # ONGOING TOBACCO ABUSE * Encouraging has cut back to 5 cigarettes per day but is also using of a mckeon; I did discuss with her that if a pen use of tobacco is not safe and is not recommended for her # CHRONIC PAIN SYNDROME WITH CHRONIC PRESCRIBED METHADONE TOTAL 448 MG PER DAY * This dosage, despite how huge it is, is well documented and no dose to be her chronic dose; of concern is the propensity for methadone to cause QT prolongation and arrhythmia related along with her risks of developing heart disease # INTOLERANCE OF BETA BLOCKERS * She has chronic bradycardia with heart rates in the 45-50 range continuously, and has not been able to tolerate beta-blockers based on that I reviewed the patient's condition and assessment and treatment plans today in detail with doctors Jose C Ang and Philip Garcia A will be reviewing with the nephrology team as well as they are managing her blood pressures in the outpatient setting Also seen on multidisciplinary ICU rounds PLANS: -continue care in [place] you for the moment with the multiple issues as above -continue to monitor blood pressures here very closely, with a goal for systolics in the 160-175 range at this time to avoid problems with auto regulation 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 Certainly the medicines that she is taking now are not adequately controlling her blood pressure on a regular basis and will need to consider probably stopping some of those medicines. -I have also advised that she stop taking ibuprofen which could aggravate hypertension and interfere with the effects of her lisinopril to treat hypertension and we have stopped that medicine here -will order PFT at the bedside today to assess for any possible restrictive her obstructive physiology -as she has developed pulmonary hypertension at this time it appears quite critical that we try and get her back on CPAP and get her into a pulmonary rehab clinic along with X aggressive efforts at weight loss. I reviewed all this with Dr. Damon Garcia and will review this coming Saturday with her primary care physician at well. Will work on some CPAP titrating here but she will need to get another sleep study in order to get a new device. She will need forms filled out to get into the pulmonary rehab clinic. In terms of weight loss of discussed some diet changes and exercise with her but I think getting to the pulmonary rehab clinic will be important as she is already become fairly sedentary due to exertional dyspnea. If she is unable to lose weight in a reasonably short time she probably is would be a good candidate to consider referral for bariatric surgery -I have spoken with her again today regarding the urgency with which we would like her to work on quitting tobacco and she seems motivated to do this, again will refer her to primary care for more help with this -continue her current chronic pain management with her current dose of methadone , however as mentioned in yesterday's note would recommend continue to try and decrease that dose particularly as she has such risk factors for heart disease and this medicine this associated with high risk of arrhythmic sudden - in the future would be very careful to minimize high-dose radiation exposures from CT and nuclear imaging studies as clinically appropriate, I have reviewed this in detail with Dr. Jose C Ang and will try and review with the ER as well SUBJECTIVE: Patient had a couple more episodes of chest discomfort last night similar to what she had at home yesterday but they were brief and resolved spontaneously No other cardiopulmonary or thoracic symptoms Mild headache this morning that she thinks is a migraine Still some blurring of vision unchanged from yesterday No recurrence of palpitations here OBJECTIVE Vitals reviewed: Quite a bit of fluctuation in blood pressures, eating a low of systolic 109 and a high of systolic 201 in the last 12 hr despite continuing all 5 of her home medicines here, no additional medicines have been given thus far as she has intermittently been with fairly low blood pressures that I am hoping to avoid given her chronic severe hypertension. Other vitals are stable without fever Design Teacher, my review: All sinus rhythm in her usual bradycardic range of mid 40s to 55, no tachycardias or other arrhythmias Exam: alert oriented relaxed On ocular exams today her right eye is normal, I believe that she has today only minimal changes of papilledema on left eye, better than yesterday skin warm dry color ok resps not labored lungs clear BSs though very diminished heart regular abd soft nondistended nontender, bowel sounds present limbs warm, no edema iv site ok Lexiscan stress myocardial perfusion imaging was done this morning, I reviewed the images which have been read by Dr. Freire: There is no wall motion abnormality and no perfusion defect and she has preserved LV ejection fraction. Echocardiogram has been done and interpreted: EF is preserved in the 60s and her [id number] MR is unchanged from last echo. New findings on this echo include pulmonary hypertension with pressure 53 as well as some diastolic dysfunction indicating probably onset of hypertensive heart disease Objective: Vital Signs Temp Pulse Resp BP Pulse Ox 36.6 C 47 L 21 H 119/58 L 95 11/09/17 12:00 11/09/17 12:00 11/09/17 07:38 11/09/17 12:00 11/09/17 12:00 11/08/17 11/09/17 11/10/17 06:59 06:59 06:59 Intake Total 1400 Balance 1400 PT 12.8 SEC (12.0-15.0) 11/08/17 09:00 INR 0.94 (0.83-1.16) 11/08/17 09:00 - Time Spent With Patient Time Spent with Patient: greater than 35 minutes Time Spent with Patient: Greater than 35 minutes spent on this patients care, greater than 50% of time spent counseling, educating, and coordinating care regarding the above mentioned plan. ICD10 Worksheet Patient Problems: Problems Problem Status Onset Acute chest pain Acute Symptomatic bradycardia Acute Bradycardia Acute CHF (congestive heart failure) Acute CHF exacerbation Acute COPD (chronic obstructive pulmonary disease) Acute Chest pain Acute Chest pain at rest Acute Hypertension Acute Hypoxia Acute Knee sprain Acute Migraine Acute Shortness of breath Acute Shortness of breath on exertion Acute Syncope and collapse Acute Uncontrolled hypertension Acute
[2017-11-09] MEDS ORDERED: SPIRONOLACTONE 25 MG TAB PO SCH (12:15)
[2017-11-09] MEDS: CHLORTHALIDONE 25 MG TAB PO SCH (14:51)
[2017-11-09] MEDS ORDERED: IPRATROPIUM/ALBUTEROL 3 ML DEYVIAL IH PRN (16:04)
--- NOTE | 2017-11-09 17:08 | GHP ---
[f rep st] HISTORY AND PHYSICAL DATE OF ADMISSION: 11/08/2017 REFERRING PHYSICIAN: Billy Lowry MD PULMONARY/CRITICAL CARE CONSULTATION REASON FOR REFERAL: Evaluation and management of pulmonary hypertension, chronic obstructive pulmona ry disease, and obstructive sleep apnea. HISTORY OF PRESENT ILLNESS: Ms Alvarado is a 47-year-old woman who was admitted to the hospital wit h malignant hypertension. She presented with acute onset of a sensation that she had to have a bowel movement and was nauseated, as well as some left-sided chest pain and diaphoresis. She was found to have a blood pressure of 183/93, but this later madina to a high of 240/150. She was admitted and ___ her usual medication. No IV medications were used. Her blood pressures have been somewhat l abile. She reports some headache. She has also had some blurry vision, but thinks that seems to be better currently. PAST MEDICAL HISTORY: 1. COPD. The patient has a long-standing history of smoking. She has been on oxygen continuously f or about 4 years, and has also been on inhalers at times, but is not currently using any. She denies any recent exacerbations. 2. Obstructive sleep apnea. This was diagnosed years ago and was treated with CPAP. However, the p iwona lost her CPAP unit several years ago and has not been on any therapy since except for oxygen. 3. Obesity. 4. Bradycardia. 5. Congestive heart failure. 6. Partial idiopathic epilepsy. 7. Chronic pain. MEDICATIONS: At the time of admission include amlodipine, Trileptal, hydralazine, lisinopril, albute rol p.r.n., clonidine, Soma, Lasix, Neurontin, Klonopin, Ambien, methadone mg twice daily, and ibuprofen. ALLERGIES: Sulfa, metoclopramide. SOCIAL HISTORY: The patient has a longstanding history of smoking, now cut back to half pack cigaret hector daily. FAMILY HISTORY: Unremarkable. REVIEW OF SYSTEMS: A 10-point review of systems adds nothing to the history of present illness. PHYSICAL EXAMINATION: GENERAL: The patient is awake, alert, and in no acute distress. A blood pres sure is 154/77 with a heart rate of 47. She is afebrile. Oxygen saturations are 95% on 2 L. HEENT: Normocephalic and atraumatic. No icterus. NECK: No JVD. Trachea is midline. CHEST: Clear to a uscultation. CARDIAC: Regular rate and rhythm without murmur. ABDOMEN: Soft and nontender. Bowel sounds are present. EXTREMITIES: No clubbing, cyanosis, or edema. NEURO: The patient is awake and alert. She is in no acute distress. There are no gross motor or sensory deficits. LABORATORY: A CBC is remarkable only for a mildly elevated white blood count at 9.6. A chemistry gr oup is normal. A BNP is 1250. A chest x-ray done yesterday shows mild peribronchial thickening and borderline cardiomegaly. Images reviewed by me. An echocardiogram shows a normal left ventricle eje ction fraction at 65% to 70%. Diastolic dysfunction is present. The RVSP is 53 mmHg. The systemic blood pressure is 187/86 at the time of the echocardiogram. ASSESSMENT: 1. Malignant hypertension. This is being managed with oral pain medications. She has been brought down to a mild hypertensive state and her symptoms improved. 2. Chronic obstructive pulmonary disease. The severity of this is uncertain. She continues to smok e. She is on just p.r.n. albuterol. 3. Obstructive sleep apnea. This was previously diagnosed. She is currently not on any therapy exc ept for nocturnal oxygen. This could contribute to her hypertension and pulmonary hypertension. 4. Pulmonary hypertension. This is moderate in severity. The echocardiographic measurement may be a bit higher than it typically is when her blood pressure is controlled, as pulmonary hypertension ca n track systemic hypertension to some degree, and may respond somewhat to the medications used to con trol static blood pressure. 5. Obesity. The patient reports about a 20 pounds weight gain over the last year, and was as low as 180 pounds a few years ago. This could contribute to her obstructive sleep apnea, pulmonary hyperte nsion as well as oxygen needs. RECOMMENDATIONS: 1. Bedside spirometry. 2. DuoNebs p.r.n. 3. Continue oxygen as needed. 4. Start CPAP empirically at night. 5. I discussed with the patient that I felt it is likely that she still had sleep apnea and that benton atment was warranted. I will order a sleep study in order to assess the presence of sleep apnea and we will see her back in followup to consider initiating therapy. /[id number]/MODL
[2017-11-09] MEDS: ONDANSETRON DISINTEGRATING 4 MG TAB PO PRN (21:41)
[2017-11-09] MEDS: ZOLPIDEM TARTRATE 5 MG TAB PO PRN (21:44)
[2017-11-10] MEDS: CARISOPRODOL 350 MG TAB PO PRN ×3 (05:09→15:55)
[2017-11-10] MEDS: clonazePAM 0.5 MG TAB PO PRN ×3 (05:37→21:16)
[2017-11-10] MEDS: METHADONE HCL 10 MG/ML UDSYR PO SCH ×2 (05:37→15:32)
[2017-11-10] MEDS: LISINOPRIL 20 MG TAB PO SCH ×2 (08:25→21:16)
[2017-11-10] MEDS: ENOXAPARIN 40 MG/0.4 ML SYR SC SCH (08:26)
[2017-11-10] MEDS: OXcarbazepine 300 MG TAB PO SCH ×2 (08:27→21:18)
[2017-11-10] MEDS: CHLORTHALIDONE 25 MG TAB PO SCH (09:36)
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
[2017-11-10] MEDS: hydrOXYzine HCL 50 MG TAB PO PRN ×2 (12:07→21:18)
[2017-11-10] MEDS ORDERED: LABETALOL HCL 5 MG/ML 20 ML MDV IVP ONE (12:24)
[2017-11-10] MEDS: ONDANSETRON DISINTEGRATING 4 MG TAB PO PRN (12:31)
--- NOTE | 2017-11-10 12:43 | GHP ---
[f rep st] HISTORY AND PHYSICAL DATE OF ADMISSION: 11/08/2017 REASON: Resistant hypertension. HISTORY OF PRESENT ILLNESS: Ms. Alvarado is a 47-year-old female with hypertension since age 20, marroquin s been followed by my partner, Dr. Ware. Per chart review of our outpatient record, I did not see an y record of metanephrines, aldosterone, or renin levels. However, she did have a CT angiogram of the abdomen which was negative for renal artery stenosis in 2015. In August, she was admitted to [facility] with sinus bradycardia and dizziness. Her clonidine was decreased and some of her b lood pressure medicines were temporarily held. It was thought that there was some interaction with h er high-dose methadone and clonidine. She did have orthostasis. She did see Dr. Ware on October 22. H ome blood pressures have been running 180s to 200s. She did not make adjustments to medications but attributed worsening control to her stress at home. Indeed, Carmina states there been some personal problems and interaction with her mother lately. She has been eating a lot of fast food. She has sl eep apnea that has not been treated with CPAP for a couple of years. She does have some problems wit h ankle swelling. She has had higher blood sugars lately, but does not have overt diabetes. Shortly after admission her blood pressure was as high as 251/142. Also, she had chest pain and shor tness of breath prompting her to seek care in the emergency department, as well as her tachycardia. PAST MEDICAL HISTORY: See HPI. Chronic pain and chronic narcotic use, chronic headaches, syncope, t obacco abuse, untreated sleep apnea, diastolic heart failure, COPD, heart murmur, hyperlipidemia, kid joni stones, arthritis, anxiety. SURGICAL HISTORY: Hysterectomy, multiple orthopedic surgeries, tonsillectomy, heart catheterization, cholecystectomy, bladder surgery. ALLERGIES: Sulfa, Reglan, oral tramadol, Augmentin. CURRENT MEDICATIONS: Clonidine patch 0.3 mg just started this morning. Chlorthalidone 25 mg started yesterday in place of furosemide. Hydralazine 100 mg three times daily, lisinopril 20 mg twice danelle y, amlodipine 10 mg daily. She also is on DuoNeb, Proventil, Klonopin 0.5 mg three times daily, subc u Lovenox, Neurontin 600 mg at night, methadone 224 mg twice daily. Trileptal and Ambien. SOCIAL HISTORY: She is a current smoker. FAMILY HISTORY: Mother had hypertension, as did her father. She has 4 sons, 1 daughter. REVIEW OF SYSTEMS: See HPI. She has had some dyspnea both at rest and on exertion. She came into [facility] with palpitations, but denies any chest pains. She has been using ibuprofen about daily for pain. She describes Raynaud syndrome in her hands. She has not seen any pills come through in h er stools and affirms that she has been very compliant with medications. No nausea or vomiting. She has had a few falls on the stairs resulting in some injury to her shins. Otherwise, 10-system review negative in detail. PHYSICAL EXAM: VITAL SIGNS: BP 200/92. Before this morning, her blood pressure was ranging between 114-150s over 70s-80s for most of the last day. Heart rate 64, saturating 96% on room air. T 36.9 Celsius. GENERAL: Pleasant, comfortable, obese, female, sitting in a chair, not on oxygen . ENT: Eyes: No scleral icterus. Oral mucosa is moist. Unable to visualize her distal soft palat e. NECK: No lymphadenopathy. Did not see jugular venous distention. HEART: Regular rate and rhyt hm with 1/6 systolic murmur. LUNGS: Diminished breath sounds in the left base, otherwise clear to a uscultation. ABDOMEN: Obese, soft, nontender. LOWER EXTREMITIES: With 1+ pretibial and ankle ana maria ing edema. SKIN: Her hands have some rubor and there is a faint petechial rash on her left forearm. Otherwise, no rashes. NEUROLOGICAL: Alert, oriented, nonfocal. MUSCULOSKELETAL: No gross joint swelling or deformities. LABS: White count 9.6, hemoglobin 13, platelets 296. Sodium 136, potassium 3.9, CO2 32, BUN 14, cre atinine 0.5, glucose 96. Troponin negative. Calcium 8.2, TSH 4.2. Myocardial perfusion scan yesterday, EF 68%. No wall motion abnormalities. Chest x-ray 2 days ago: I did personally review her chest x-ray, which per my read showed some mild cardiomegaly, mild peribronchial thickening, and no infiltrates. IMPRESSION AND PLAN: 1. Resistant hypertension. This is most likely just essential hypertension. This has been long-sta nding since age 20. She is morbidly obese. She has untreated sleep apnea. Her diet is poor with hi gh salt intake as evidenced by some lower extremity edema. She has been taking ibuprofen. She is on a complex regimen, but attests to good compliance. This seems believable. I suspect these other fa ctors are responsible for her exacerbation. She has had some lability here in the hospital. I do no t want to change too much given the close outpatient care that she will have with Dr. Ware. We can t ry substituting chlorthalidone 25 mg for Lasix and a clonidine patch for her pills. Both of these marroquin ve a longer half-life and will be less prone to fluctuations. Chlorthalidone should have a better ef fect on blood pressure. Possibly if these are highly effective, we can wean some of her short-acting medicines such as hydralazine. I would like to see her blood pressure reasonably controlled for 24 hours prior to discharge. She spiked with 200s this morning. Clonidine was held last night due to l ower blood pressures. Anticipate she would stay 1 more night; I will defer to Dr. Lowry on this. Pattie lennonlow up closely with Dr. Ware in clinic. I will not order hormonal testing at this time. I suspect this has been done at some point in the past. She needs to stop ibuprofen altogether. 2. Proteinuria. Likely due to her hypertension. Follow up with Dr. Ware. 3. Untreated sleep apnea. Recommend that she get a sleep study again in short order and be started on CPAP. 4. Chest pain. Troponins have been negative. She had a negative myocardial perfusion scan yesterda y. She cannot have beta-blockers due to bradycardia. Would consider starting an aspirin for prophyl axis. Thank you this consultation. /[id number]/MODL
--- NOTE | 2017-11-10 13:36 | HOSPPROG ---
Hospitalist Progress Note Assessment/Plan: DIAGNOSES: # MALIGNANT HYPERTENSION, despite self-reported excellent compliance with 5 different blood pressure medications * So far mild left eye papilledema is only evidence of end-organ injury * Current home medicines include clonidine 0.3 three times daily, lisinopril 20 twice daily, hydralazine 100 twice daily, Lasix 40 mg daily, Norvasc 10 mg daily ; beta-blockers have been avoided due to chronic heart rates in the 45-55 range for her * Here her blood pressures have been quite labile counseling back and forth between approximately 110 in 240 systolic. Yesterday Lasix DC did replaced with chlorthalidone. She did have some of her clonidine doses held this morning for lower blood pressures, hard to be certain if the higher blood pressures subsequent are due to the missed clonidine or otherwise. Previously very labile despite getting all of her schedule doses * Issues that may be affecting blood pressure at home include recent use of high doses of ibuprofen, lack of treatment of sleep apnea, and question whether her compliance has been good given her life situation # BLURRY VISION AND PAPILLEDEMA LEFT EYE (symptomatic for approximately 2 weeks) * Mild examination changes and mild change in vision in terms of blurring, however today states blurring in right eye as well; given hypertension would be good to ensure that no HOUSING MANAGER injury involved # ACUTE CHEST PAIN AND DYSPNEA in a patient with several previous hospital presentations for the same symptoms * No evidence for coronary or cardiac cause of pain, suspect is due to uncontrolled hypertension and anxiety; she did have a elevated D-dimer but she has had elevated D-dimers in the absence of PE or DVT in the past; current clinical suspicion for thromboembolic disease is very low * Patient has now had multiple hospital admissions for chest pain/short of breath, and has multiple study showing no evidence of vascular disease. See discussion regarding radiation exposure below # PALPITATIONS AT HOME ON DAY OF ADMISSION * Of note the patient is on a huge dose of methadone though her QT intervals here are normal and no arrhythmia noted so far * Past Cardiac evaluation for bradycardia included a 1 month outpatient heart monitor which showed only sinus bradycardia in the mid 40s to 50s # NEWLY IDENTIFIED PULMONARY HYPERTENSION measured at 53 * Seen on echo at admission, likely related to obesity hypoventilation and sleep apnea, however she is a smoker * Her Mitral Regurg is still mild to moderate so doubt contributing to her pulmonary hypertension or symptoms # HIGH CUMULATIVE MEDICAL RADIATION DOSES IN THE PAST 2 YEARS AT THIS HOSPITAL * 2 CT scans of chest, and CT abdomen as well as 3 myocardial perfusion imaging studies in the last 20 months with prior history of other CT scans and coronary angiography. High radiation exposure in a short time and given her multiple medical issues she is likely to continue to present with acute episodes of chest pain. She does have risk factors for coronary disease, however given the fact that her studies have shown no evidence of thromboembolic disease, coronary disease, or renal artery disease decision making for her acute episode should carefully take into account her ongoing cumulative radiation exposure. I reviewed this in detail with Dr. Jose C Ang her efficiency engineer and he is in agreement with this. I will trying communicate this issue to our emergency department as well and see if they are able to put this somehow in file for their evaluating staff to consider # ABSENCE OF ACUTE DECOMPENSATION OF HER CHRONIC HYPOXEMIC RESPIRATORY FAILURE # CHRONIC BRADYCARDIA stable, with negative evaluation for any concerning cardiac or other etiologies in the past including long-term monitor # CHRONIC HYPOXEMIC RESPIRATORY FAILURE ON 24 HR PER DAY OXYGEN AT HOME, currently stable * Prior history of sleep apnea and use of CPAP though lost her CPAP device a couple years ago when she was homeless and is not using that device now * Describe symptoms highly suggestive of obesity hypoventilation syndrome and given her habitus would be quite surprised if she did not have that * Ongoing tobacco use includes cigarettes which she has cut from a pack a day down to 5 cigarettes per day but she is using a vapor pen for large amounts of tobacco * Previously diagnosed with COPD though I am not aware that she has had PFTs, and her last CT scan 16 months ago did not mention in the radiologist report changes of emphysema # MULTIPLE RISK FACTORS FOR VASCULAR DISEASE but no documented vascular disease on multiple evaluations to date * Of concern she continues to smoke and has ongoing uncontrolled hypertension despite multiple medicines; family history and obesity or her other factors # ONGOING TOBACCO ABUSE * Encouraging has cut back to 5 cigarettes per day but is also using of a mckeon; I did discuss with her that if a pen use of tobacco is not safe and is not recommended for her # CHRONIC PAIN SYNDROME WITH CHRONIC PRESCRIBED METHADONE TOTAL 448 MG PER DAY * This dosage, despite how huge it is, is well documented and no dose to be her chronic dose; of concern is the propensity for methadone to cause QT prolongation and arrhythmia related along with her risks of developing heart disease # INTOLERANCE OF BETA BLOCKERS * She has chronic bradycardia with heart rates in the 45-50 range continuously, and has not been able to tolerate beta-blockers based on that I reviewed the patient's condition and assessment and treatment plans today in detail with doctor Philip Garcia and Dr. Dennis Llamas Also seen on multidisciplinary ICU rounds PLANS: -continue care in SDU for the moment with the multiple issues as above -will change three times daily clonidine to a weekly patch -a dose of labetalol is ordered right now will need to follow closely for potential bradycardia -continue chlorthalidone instead of Lasix -will want to see her blood pressure recently stabilized and less labile before going home -reason activity and aldosterone levels pending; has previously had evaluations for renal artery stenosis negative and for metanephrines negative -MRI of the brain ordered to assess for any HOUSING MANAGER lesions contributing to blurry vision; continue monitor her left eye and blurry vision very closely -I have advised that she stop taking ibuprofen -as she has developed pulmonary hypertension at this time it appears quite critical that we try and get her back on CPAP and get her into a pulmonary rehab clinic along with X aggressive efforts at weight loss. I reviewed all this with Dr. Damon Garcia and will review this coming Saturday with her primary care physician at well. Will work on some CPAP titrating here but she will need to get another sleep study in order to get a new device. She will need forms filled out to get into the pulmonary rehab clinic. In terms of weight loss of discussed some diet changes and exercise with her but I think getting to the pulmonary rehab clinic will be important as she is already become fairly sedentary due to exertional dyspnea. If she is unable to lose weight in a reasonably short time she probably is would be a good candidate to consider referral for bariatric surgery -tobacco counseling reviewed again today -continue her current chronic pain management with her current dose of methadone , however as mentioned in yesterday's note would recommend continue to try and decrease that dose particularly as she has such risk factors for heart disease and this medicine this associated with high risk of arrhythmic sudden -I have reviewed issues regarding radiation exposure and need to try to minimize that with Dr. Ang her efficiency engineer; will also present this to the ER for their consideration for future visits SUBJECTIVE: Still some headache, fairly nauseous today Still with blurry vision, but now stating it is starting in her right eye as well as the left OBJECTIVE Vitals reviewed: Blood pressures remain quite labile with a low this morning of 114 and high 240 systolic within 4 hr of each other other vitals stable Seafood Manager, my review: All sinus rhythm in her usual bradycardic range of mid 40s to 55, though occasionally getting up into the 60s and 70s Exam: alert oriented relaxed On ocular exams today her right eye is normal, I believe that she has today only minimal changes of papilledema on left eye resps not labored lungs clear BSs though very diminished heart regular abd soft nondistended nontender, bowel sounds present limbs warm, no edema iv site ok Objective: Vital Signs Temp Pulse Resp BP Pulse Ox 36.9 C 58 L 14 208/97 H 96 11/10/17 08:00 11/10/17 12:30 11/10/17 12:00 11/10/17 12:30 11/10/17 08:00 Laboratory Results 11/10/17 05:02 11/09/17 11/10/17 11/11/17 06:59 06:59 06:59 Intake Total 1400 1350 Balance 1400 1350 PT 12.8 SEC (12.0-15.0) 11/08/17 09:00 INR 0.94 (0.83-1.16) 11/08/17 09:00 ICD10 Worksheet Patient Problems: Problems Problem Status Onset Acute chest pain Acute Symptomatic bradycardia Acute Bradycardia Acute CHF (congestive heart failure) Acute CHF exacerbation Acute COPD (chronic obstructive pulmonary disease) Acute Chest pain Acute Chest pain at rest Acute Hypertension Acute Hypoxia Acute Knee sprain Acute Migraine Acute Shortness of breath Acute Shortness of breath on exertion Acute Syncope and collapse Acute Uncontrolled hypertension Acute
--- NOTE | 2017-11-10 15:18 | PDINTPN ---
Certified Personal Trainer Progress Note Assessment/Plan: Assessment: Malignant HTN: Having COBB and had evidence of papilledema. Fluctuating during hospitalization, with clonidine held last night due to SBP low 100s, but 190- 230 now. Followed by cardiology and nephrology as outpatient and consulted in hospital. Changing to TD clonidine and clorthalidone for longer T 1/2. Untreated TIGIST could contribute, as could NSAID use and Na intake. No plans to evaluate for other causes of HTN at this point, has been evaluated as an outpatient. TIGIST: Previously diagnosed, untreated since she lost her CPAP. Has gained weight since. Trying CPAP here in hospital. Chronic Pain: On large doses on Methadone. Morbid obesity Plan: Antihypertensives per nephrology, hospitalist. Keep in SDU until BP well-controlled for 24 hours. CPAP at night while in hospital. Follow-up with me as outpatient to get sleep study and initiate CPAP. 11/10/17 15:22 Subjective: C/O intermittent COBB. Doesn't seem to be related to fluctuations in BP. Tolerated CPAP until about 2:30 AM, then couldn't tolerate full-face mask anymore. Objective: Vital Signs Temp Pulse Resp BP Pulse Ox 36.9 C 58 L 14 208/97 H 96 11/10/17 08:00 11/10/17 12:30 11/10/17 12:00 11/10/17 12:30 11/10/17 08:00 Laboratory Results 11/10/17 05:02 11/09/17 11/10/17 11/11/17 05:59 05:59 05:59 Intake Total 1400 1350 Balance 1400 1350 PT 12.8 SEC (12.0-15.0) 11/08/17 09:00 INR 0.94 (0.83-1.16) 11/08/17 09:00 Physical Exam - Physical Exam General Appearance: alert, no apparent distress EENT: normal ENT inspection Neck: normal inspection Respiratory: lungs clear, normal breath sounds Cardiac/Chest: regular rate, rhythm, edema (trace) Abdomen: normal bowel sounds, non-tender Skin: normal color, warm/dry Extremities: normal inspection Neuro/Psych: alert, normal mood/affect, oriented x 3 ICD10 Worksheet Patient Problems: Problems Problem Status Onset Acute chest pain Acute Symptomatic bradycardia Acute Bradycardia Acute CHF (congestive heart failure) Acute CHF exacerbation Acute COPD (chronic obstructive pulmonary disease) Acute Chest pain Acute Chest pain at rest Acute Hypertension Acute Hypoxia Acute Knee sprain Acute Migraine Acute Shortness of breath Acute Shortness of breath on exertion Acute Syncope and collapse Acute Uncontrolled hypertension Acute
[2017-11-10] MEDS: ZOLPIDEM TARTRATE 5 MG TAB PO PRN (21:18)
[2017-11-11] MEDS: CARISOPRODOL 350 MG TAB PO PRN ×4 (04:33→21:07)
[2017-11-11] MEDS: clonazePAM 0.5 MG TAB PO PRN ×3 (04:33→21:07)
[2017-11-11] MEDS: METHADONE HCL 10 MG/ML UDSYR PO SCH ×2 (05:15→15:05)
[2017-11-11] MEDS: hydrOXYzine HCL 50 MG TAB PO PRN (06:26)
[2017-11-11] MEDS: ONDANSETRON DISINTEGRATING 4 MG TAB PO PRN ×2 (06:58→14:13)
[2017-11-11] MEDS ORDERED: hydrALAZINE 20 MG/ML VIAL IVP PRN (07:15)
[2017-11-11] MEDS: OXcarbazepine 300 MG TAB PO SCH ×2 (08:57→21:11)
[2017-11-11] MEDS: LISINOPRIL 20 MG TAB PO SCH ×2 (08:57→21:10)
[2017-11-11] MEDS: CHLORTHALIDONE 25 MG TAB PO SCH (08:58)
[2017-11-11] MEDS: ENOXAPARIN 40 MG/0.4 ML SYR SC SCH (08:58)
[2017-11-11] MEDS ORDERED: CHLORTHALIDONE 25 MG TAB PO SCH (09:01)
--- NOTE | 2017-11-11 09:36 | SOAPPROG ---
SOAP Progress Note Assessment/Plan: Assessment/Plan: Resistant HTN: Pt with uncontrolled HTN as an outpatient despite multiple medications. We have tried a clonidine patch as an outpatient and she did not tolerate it well, had rash from patch, could not keep patch on, and did not feel good on patch. - Will increase chlorthalidone. - Will change clonidine patch back to clonidine pills 0.3mg TID. - Will continue other meds. - Agree with needing CPAP. - Will need close f/u with me as outpatient. GERD: will resume her outpatient PPI. Subjective: Pt has had SBP running in 200s overnight. She states she feels nauseated and has a lot of anxiety, no chest pain or dyspnea currently. Objective: Vital Signs Temp Pulse Resp BP Pulse Ox 36.7 C 77 16 217/95 H 94 11/11/17 00:00 11/11/17 07:00 11/11/17 06:00 11/11/17 07:00 11/11/17 07:00 Laboratory Results 11/11/17 04:45 11/10/17 11/11/17 11/12/17 05:59 05:59 05:59 Intake Total 1350 2000 Balance 1350 1999 PT 12.8 SEC (12.0-15.0) 11/08/17 09:00 INR 0.94 (0.83-1.16) 11/08/17 09:00 General: alert and oriented, mild distress Eyes: EOMI, PERRL OP: Clear CV: RRR Resp: CTA bilat, nonlabored respirations on NC Abd: Soft, NT/ND Ext: trace edema BLE Neuro: CN II-XII grossly intact, no asterixis ICD10 Worksheet Patient Problems: Problems Problem Status Onset Acute chest pain Acute Symptomatic bradycardia Acute Bradycardia Acute CHF (congestive heart failure) Acute CHF exacerbation Acute COPD (chronic obstructive pulmonary disease) Acute Chest pain Acute Chest pain at rest Acute Hypertension Acute Hypoxia Acute Knee sprain Acute Migraine Acute Shortness of breath Acute Shortness of breath on exertion Acute Syncope and collapse Acute Uncontrolled hypertension Acute
[2017-11-11] MEDS ORDERED: PANTOPRAZOLE SODIUM 40 MG TAB PO SCH (09:45)
[2017-11-11] MEDS ORDERED: GABAPENTIN 400 MG CAP PO SCH (11:30)
--- NOTE | 2017-11-11 12:39 | PDCARPN ---
Cardiology Progress Note Chief Complaint: Patient reports that she is not doing well today. Blood pressures are elevated. Nephrology saw patient today. Assessment/Plan: Assessment: 11-11-17 Patient reports that she is not feeling very well today. Blood pressures are elevated once again. Trial with clonidine patch was unsuccessful (per patient and EMR documentation). no complaints of chest pains today, but overall, patient is not feeling well. Telemetry with sinus rhythm as well as ongoing elevation to blood pressures noted. CPAP was used for some of last night. Stress and anxiety continue to come up in discussions with the patient. MRI of head without acute pathology identified. 11-10-17 Patient is a 47 y/o female, well known to me in the outpatient setting, with history of HTN (difficult to control), chronic pain (with regular methadone use) , anxiety, and tobacco use, who presented to [facility] ER with complaints of abdominal discomfort, dizziness, elevation in heart rates and hypertension. Multifactorial etiology for the elevated blood pressure (query sleep apnea without CPAP use, anxiety, and stressors (son with threats to the patient as well as suicidal ideation). Compliance with oral antihypertensive therapy has reportedly been good. In the outpatient setting, we have voiced desires for the patient to continue to wean the dose of methadone. Stress testing from May 2015 without ischaemia or infarction patterns noted with normal LVEF. Stress testing with this admission also failed to note ischaemia or infarction patterns. Neurologic complaints (speech issues and visual field disturbances) were noted with this most recent event. Patient with concerns given the history of strokes to the family (sister and mother in particular). Chest pains were not being noted today, but have been noted not infrequently. Patient tends to have an awareness of elevation to blood pressures given the aforementioned symptoms. Pulmonary/Critical Care did see the patient in consultation yesterday. Recommendations were for both consistent CPAP use as well as likely outpatient follow up. Nephrology consultation appears to be pending. Plan: (1) Continue current antihypertensive therapies (2) CPAP consistency is needed (and patient is working on this) (3) Strong recommendations for smoking cessation (4) Weight loss (5) Would consider psych consultation to determine if there is more to the verbalized stressors the patient is subjected to than appreciated (6) Given the blood pressure elevation noted, patient is not likely to be discharged today Subjective: Patient reports not feeling well today. Reviewed/Discussed With: hospitalist Objective: Vital Signs (8 Hrs) Pulse Resp BP Pulse Ox 11/11/17 10:00 172/85 H 11/11/17 09:00 87 159/71 H 11/11/17 07:00 77 217/95 H 94 11/11/17 06:00 100 16 211/91 H 96 11/11/17 05:00 76 22 H 191/97 H 87 L Intake/Output (24 Hrs) 11/10/17 11/11/17 11/12/17 05:59 05:59 05:59 Intake Total 1350 1999 Balance 1350 1999 Intake: Oral (ml) 1350 1999 Other: Number of Voids Toilet 3 4 Result Diagrams: 11/08/17 09:00 11/11/17 04:45 Cardiac Labs: Cardiac Lab Results (72 Hrs) 11/08/17 14:18 Troponin I < 0.012 Telemetry: Sinus rhythm - Physical Exam Constitutional: healthy appearing, obese, apparent distress Eyes: PERRL, EOMI Ears, Nose, Mouth, Throat: moist mucous membranes Cardiovascular: regular rate and rhythm, systolic murmur, pulses symmetric bilat , No jugular vein distention Peripheral Pulses: 2+: dorsalis-pedis (R), dorsalis-pedis (L) Respiratory: clear to auscultate bilat, no crackles, no wheezes Gastrointestinal: normoactive bowel sounds Skin: no rashes, no edema Musculoskeletal: no muscular tenderness Neurologic: AAOx3, CN II-XII grossly intact Psychiatric: cooperative, interactive, following commands, anxious ICD10 Worksheet Patient Problems: Problems Problem Status Onset Acute chest pain Acute Symptomatic bradycardia Acute Bradycardia Acute CHF (congestive heart failure) Acute CHF exacerbation Acute COPD (chronic obstructive pulmonary disease) Acute Chest pain Acute Chest pain at rest Acute Hypertension Acute Hypoxia Acute Knee sprain Acute Migraine Acute Shortness of breath Acute Shortness of breath on exertion Acute Syncope and collapse Acute Uncontrolled hypertension Acute
--- NOTE | 2017-11-11 13:00 | PDINTPN ---
Marketing Consultant Progress Note Assessment/Plan: Assessment/plan: 47 F admitted 11/08/17 with HTN urgency in setting of poorly controlled BP as outpatient and multiple negative cardiac workups. She has been difficult to control and labile while in the hospital despite close observation and medication titration via renal and cardiology. Complicating her issues has been outpatient TIGIST without access to CPAP (but using it in the hospital), and issues of narcotics abuse as well as anxiety and PTSD. * HTN - currently getting clonidine PO (issues with rash,etc with patch previously), norvasc, chlorthalidone (was on lasix as an outpatient), hydralazine, and lisinopril. * PTSD/anxiety- she was getting trileptal and gabapentin as an outpatient, but christal is only PRN here. Since this may be an issue effecting her BP, I resumed scheduled gabapentin today. * Asthma- she has not seen pulmonary in the [facility] system and carries the dx of asthma, not COPD. There are no PFTs available in [facility] or [facility]. She is stable from this perspective on duoneb and spiriva, so no changes needed. No systemic steroids * TIGIST- currently using our CPAP machine and can see Dr. Garcia as an outpatient. Will need outpatient sleep study. Subjective: no complaints, though acknowledges issues of anxiety and PTSD Objective: Vital Signs Temp Pulse Resp BP Pulse Ox 36.7 C 87 16 172/85 H 94 11/11/17 00:00 11/11/17 09:00 11/11/17 06:00 11/11/17 10:00 11/11/17 07:00 Laboratory Results 11/11/17 04:45 11/10/17 11/11/17 11/12/17 05:59 05:59 05:59 Intake Total 1350 2000 Balance 1350 2000 PT 12.8 SEC (12.0-15.0) 11/08/17 09:00 INR 0.94 (0.83-1.16) 11/08/17 09:00 Physical Exam - Physical Exam General Appearance: alert, no apparent distress, obese EENT: PERRL/EOMI Neck: non-tender, supple Respiratory: lungs clear, normal breath sounds, No respiratory distress, No accessory muscle use, No wheezing Cardiac/Chest: regular rate, rhythm, No edema Abdomen: non-tender, soft, No distended Skin: normal color, warm/dry, No cyanosis Lymphatic: no adenopathy Extremities: No pedal edema Neuro/Psych: alert, normal mood/affect, oriented x 3 ICD10 Worksheet Patient Problems: Problems Problem Status Onset Acute chest pain Acute Symptomatic bradycardia Acute Bradycardia Acute CHF (congestive heart failure) Acute CHF exacerbation Acute COPD (chronic obstructive pulmonary disease) Acute Chest pain Acute Chest pain at rest Acute Hypertension Acute Hypoxia Acute Knee sprain Acute Migraine Acute Shortness of breath Acute Shortness of breath on exertion Acute Syncope and collapse Acute Uncontrolled hypertension Acute
--- NOTE | 2017-11-11 13:48 | ASMTCMCOM ---
CM Note CM Note Notes: Patient continuing to require inpatient management of her hypertension and TIGIST. Both cardiology and nephrology have been working to titrate her medications. Respiratory and pulmonology will assist with her outpatient O2 and sleep study needs. Patient reports that she has a PCP and is connected to mental health services through [facility]. She will discharge home with her in the next 1-2 days. Case Management available for any discharge needs. Date Signed: 11/11/2017 01:47 PM Electronically Signed By:Mayra Castellanos RN
[2017-11-11] MEDS: GABAPENTIN 300 MG CAP PO SCH ×2 (14:11→21:09)
--- NOTE | 2017-11-11 15:27 | HOSPPROG ---
Hospitalist Progress Note Assessment/Plan: * Malignant HTN -d/w Dr. Ware and Dr. Ang - they have struggled to control her as outpatient despite multi-drugs -best outpatient BP typically SBP 150 -w/u for secondary cause of HTN previously negative -clonidine patch tried in past and failed - back to PO clonidine -BP very labile - per nursing high BP associated with anxiety episodes -lisinopril, hydralazine, chlorthalidone, norvasc, clonidine -beta-michaela intolerance due to baseline bradycardia -DC ibuprofen * CP/SOB -multiple admissions for similar complaints in past -stress test negative -has had multiple negative CTA for PE in past -suspect anxiety * Continuous narcotic dependency - previous IVDA/heroin abuse -very high dose methadone - watch QT * Pulmonary HTN * Morbid obesity with untreated TIGIST -repeat sleep study - needs new CPAP device * COPD - ongoing tobacco dependence * Chronic respiratory failure - chronic O2 2L -may also have element of obesity hypoventilation * Anxiety - follows with [facility] as outpatient * DM II -new diagnosis - HgA1c 7.4 -start metformin Subjective: No new complaints Objective: Vital Signs Temp Pulse Resp BP Pulse Ox 36.6 C 97 20 175/83 H 95 11/11/17 12:00 11/11/17 15:00 11/11/17 15:00 11/11/17 15:00 11/11/17 15:00 Laboratory Results 11/11/17 04:45 11/10/17 11/11/17 11/12/17 05:59 05:59 05:59 Intake Total 1350 2000 Balance 1350 2000 PT 12.8 SEC (12.0-15.0) 11/08/17 09:00 INR 0.94 (0.83-1.16) 11/08/17 09:00 MRI brain - negative for stroke stress test - negative - Physical Exam Constitutional: no apparent distress, appears nourished, not in pain Cardiovascular: regular rate and rhythym, no murmur, rub, or gallop Respiratory: no respiratory distress, no rales or rhonchi, clear to auscultation Gastrointestinal: normoactive bowel sounds, soft, non-tender abdomen, no palpable masses Skin: no rashes or abrasions, no fluctuance, no induration Neurologic: AAOx3, sensation intact bilaterally Psychiatric: interacting appropriately, not anxious, not encephalopathic, thought process linear ICD10 Worksheet Patient Problems: Problems Problem Status Onset Acute chest pain Acute Symptomatic bradycardia Acute Bradycardia Acute CHF (congestive heart failure) Acute CHF exacerbation Acute COPD (chronic obstructive pulmonary disease) Acute Chest pain Acute Chest pain at rest Acute Hypertension Acute Hypoxia Acute Knee sprain Acute Migraine Acute Shortness of breath Acute Shortness of breath on exertion Acute Syncope and collapse Acute Uncontrolled hypertension Acute
[2017-11-11] MEDS: metFORMIN HCL 500 MG TAB PO SCH (18:43)
[2017-11-11] MEDS ORDERED: CALCIUM CARBONATE 500 MG CHEWABLE TAB PO PRN (19:14)
[2017-11-11] MEDS ORDERED: LACTULOSE 20 GM/30 ML UDCUP PO PRN (19:16)
[2017-11-11] MEDS ORDERED: MAGNESIUM HYDROXIDE 30 ML UDCUP PO PRN (19:16)
[2017-11-11] MEDS ORDERED: BISACODYL 10 MG SUPP PR PRN (19:16)
[2017-11-11] MEDS ORDERED: POLYETHYLENE GLYCOL 3350 17 GM PKT PO PRN (19:16)
[2017-11-11] MEDS: SENNOSIDES/DOCUSATE SODIUM TAB PO SCH (21:10)
[2017-11-11] MEDS: PANTOPRAZOLE SODIUM 40 MG TAB PO SCH (21:11)
[2017-11-11] MEDS: ZOLPIDEM TARTRATE 5 MG TAB PO PRN (21:15)
[2017-11-12 05:53] LABS: HEPATITIS C ANTIBODY TOTAL NEGATIVE (NEGATIVE); HIV TYPE 1 AND 2 NEGATIVE (NEGATIVE)
[2017-11-12] MEDS: METHADONE HCL 10 MG/ML UDSYR PO SCH ×2 (06:02→15:01)
[2017-11-12] MEDS: clonazePAM 0.5 MG TAB PO PRN ×2 (06:08→11:50)
[2017-11-12] MEDS: CARISOPRODOL 350 MG TAB PO PRN ×4 (06:08→20:50)
[2017-11-12] MEDS: LISINOPRIL 20 MG TAB PO SCH (08:46)
[2017-11-12] MEDS: PANTOPRAZOLE SODIUM 40 MG TAB PO SCH ×2 (08:47→20:52)
[2017-11-12] MEDS: SENNOSIDES/DOCUSATE SODIUM TAB PO SCH ×2 (08:47→20:52)
[2017-11-12] MEDS: OXcarbazepine 300 MG TAB PO SCH ×2 (08:49→20:50)
[2017-11-12] MEDS: GABAPENTIN 300 MG CAP PO SCH ×2 (08:49→20:49)
[2017-11-12] MEDS: metFORMIN HCL 500 MG TAB PO SCH ×2 (08:49→17:49)
[2017-11-12] MEDS: ENOXAPARIN 40 MG/0.4 ML SYR SC SCH (08:50)
--- NOTE | 2017-11-12 10:05 | SOAPPROG ---
SOAP Progress Note Assessment/Plan: Assessment: 1. Resistant HTN BP is better. 140's is likely a good target for now. 2. DEANN Cr has jumped significantly. I suspect this is volume depletion in the face of ACEI I believe she will need the chlorthalidone as an outpatient when her sodium level increases. I will continue this now, and hold her lisinopril. I suspect that ACEI is not significantly lowering her BP in light of her other meds, and she does not have specific renal or cards indications. Plan: 11/12/17 10:00 Subjective: No Complaints Objective: Vital Signs Temp Pulse Resp BP Pulse Ox 36.8 C 74 14 149/79 H 97 11/12/17 08:05 11/12/17 08:05 11/12/17 08:05 11/12/17 08:05 11/12/17 08:05 Laboratory Results 11/12/17 03:30 11/11/17 11/12/17 11/13/17 05:59 05:59 05:59 Intake Total 1999 700 Balance 1999 700 PT 12.8 SEC (12.0-15.0) 11/08/17 09:00 INR 0.94 (0.83-1.16) 11/08/17 09:00 Physical Exam - Physical Exam General Appearance: no apparent distress Respiratory: lungs clear Cardiac/Chest: regular rate, rhythm Extremities: non-tender, normal inspection Neuro/Psych: oriented x 3 ICD10 Worksheet Patient Problems: Problems Problem Status Onset Hypertension Acute Shortness of breath on exertion Acute Knee sprain Acute Chest pain Acute Shortness of breath Acute Bradycardia Acute Uncontrolled hypertension Acute Chest pain at rest Acute Syncope and collapse Acute CHF (congestive heart failure) Acute CHF exacerbation Acute Hypoxia Acute COPD (chronic obstructive pulmonary disease) Acute Migraine Acute Acute chest pain Acute Symptomatic bradycardia Acute
[2017-11-12] MEDS ORDERED: NS 1,000 ML IV SCH (13:45)
--- NOTE | 2017-11-12 14:27 | PDCARPN ---
Cardiology Progress Note Chief Complaint: Patient feeling lethargic today. No cardiovascular complaints of chest pains or pressure Assessment/Plan: Assessment: 11-12-17 No cardiovascular complaints, but patient with moderate fatigue and lethargy today. Blood pressures are very well controlled today - some of the best pressures that we have seen with this admission. Nephrology with recommendations for cessation of ACEi therapy today, but continuation of chlorthalidone given the pressures that have been achieved. 11-11-17 Patient reports that she is not feeling very well today. Blood pressures are elevated once again. Trial with clonidine patch was unsuccessful (per patient and EMR documentation). no complaints of chest pains today, but overall, patient is not feeling well. Telemetry with sinus rhythm as well as ongoing elevation to blood pressures noted. CPAP was used for some of last night. Stress and anxiety continue to come up in discussions with the patient. MRI of head without acute pathology identified. 11-10-17 Patient is a 47 y/o female, well known to me in the outpatient setting, with history of HTN (difficult to control), chronic pain (with regular methadone use) , anxiety, and tobacco use, who presented to [facility] ER with complaints of abdominal discomfort, dizziness, elevation in heart rates and hypertension. Multifactorial etiology for the elevated blood pressure (query sleep apnea without CPAP use, anxiety, and stressors (son with threats to the patient as well as suicidal ideation). Compliance with oral antihypertensive therapy has reportedly been good. In the outpatient setting, we have voiced desires for the patient to continue to wean the dose of methadone. Stress testing from May 2015 without ischaemia or infarction patterns noted with normal LVEF. Stress testing with this admission also failed to note ischaemia or infarction patterns. Neurologic complaints (speech issues and visual field disturbances) were noted with this most recent event. Patient with concerns given the history of strokes to the family (sister and mother in particular). Chest pains were not being noted today, but have been noted not infrequently. Patient tends to have an awareness of elevation to blood pressures given the aforementioned symptoms. Pulmonary/Critical Care did see the patient in consultation yesterday. Recommendations were for both consistent CPAP use as well as likely outpatient follow up. Nephrology consultation appears to be pending. Plan: (1) Would continue antihypertensive therapies as at present (less the ACEi therapy given concerns about renal function that were noted today) (2) Smoking cessation (3) CPAP use regular and routine (4) We will continue to follow patient while in house Subjective: No cardiovascular complaints, but fatigue is more pronounced today. Reviewed/Discussed With: hospitalist Objective: Vital Signs (8 Hrs) Temp Pulse Resp BP Pulse Ox 11/12/17 11:13 36.9 C 69 17 101/52 L 91 L 11/12/17 08:05 36.8 C 74 14 149/79 H 97 Intake/Output (24 Hrs) 11/11/17 11/12/17 11/13/17 05:59 05:59 05:59 Intake Total 1999 700 540 Balance 1999 700 540 Intake: Oral (ml) 1999 700 540 Other: Output Comment Toilet reports last BM 11/08 (except small bethany) Number of Voids Toilet 4 1 Result Diagrams: 11/08/17 09:00 11/12/17 03:30 Telemetry: sinus rhythm - Physical Exam Constitutional: WDWN, healthy appearing, no apparent distress, obese Eyes: PERRL, EOMI Ears, Nose, Mouth, Throat: moist mucous membranes Cardiovascular: regular rate and rhythm, no murmurs, no rubs, pulses symmetric bilat Peripheral Pulses: 2+: dorsalis-pedis (R), dorsalis-pedis (L) Respiratory: clear to auscultate bilat, no crackles, no wheezes Gastrointestinal: normoactive bowel sounds Skin: no rashes, no edema Musculoskeletal: no muscular tenderness Neurologic: AAOx3, CN II-XII grossly intact Psychiatric: cooperative, interactive, following commands, other (lethargic) ICD10 Worksheet Patient Problems: Problems Problem Status Onset Acute chest pain Acute Symptomatic bradycardia Acute Bradycardia Acute CHF (congestive heart failure) Acute CHF exacerbation Acute COPD (chronic obstructive pulmonary disease) Acute Chest pain Acute Chest pain at rest Acute Hypertension Acute Hypoxia Acute Knee sprain Acute Migraine Acute Shortness of breath Acute Shortness of breath on exertion Acute Syncope and collapse Acute Uncontrolled hypertension Acute
[2017-11-12] MEDS: ONDANSETRON DISINTEGRATING 4 MG TAB PO PRN (17:49)
--- NOTE | 2017-11-12 19:15 | HOSPPROG ---
Hospitalist Progress Note Assessment/Plan: * Malignant HTN -w/u for secondary cause of HTN previously negative -lisinopril, hydralazine, chlorthalidone, norvasc, clonidine -beta-michaela intolerance due to baseline bradycardia -DC ibuprofen -better control - but now dizzy with increased creatinine * ARF -likely due to low BP -hold lisinopril -IVF x 1 L * CP/SOB -multiple admissions for similar complaints in past -stress test negative -has had multiple negative CTA for PE in past -suspect anxiety * Continuous narcotic dependency - previous IVDA/heroin abuse -very high dose methadone - watch QT * Pulmonary HTN * Morbid obesity with untreated TIGIST -repeat sleep study - needs new CPAP device * COPD - ongoing tobacco dependence * Chronic respiratory failure - chronic O2 2L -may also have element of obesity hypoventilation * Anxiety - follows with [facility] as outpatient * DM II -new diagnosis - HgA1c 7.4 -start metformin * Bladder sling with difficult urination -PVR low -consider ditropan Subjective: Dizzy due to low BP Objective: Vital Signs Temp Pulse Resp BP Pulse Ox 36.6 C 64 13 125/64 H 96 11/12/17 15:44 11/12/17 15:44 11/12/17 15:44 11/12/17 15:44 11/12/17 15:44 Laboratory Results 11/12/17 03:30 11/11/17 11/12/17 11/13/17 05:59 05:59 05:59 Intake Total 1999 700 1540 Balance 1999 700 1540 PT 12.8 SEC (12.0-15.0) 11/08/17 09:00 INR 0.94 (0.83-1.16) 11/08/17 09:00 d/w DR. Almazan - no discharge today due to increased creatinine tele - NSR - Physical Exam Constitutional: no apparent distress, appears nourished, not in pain Cardiovascular: regular rate and rhythym, no murmur, rub, or gallop Respiratory: no respiratory distress, no rales or rhonchi, clear to auscultation Gastrointestinal: normoactive bowel sounds, soft, non-tender abdomen, no palpable masses Skin: no rashes or abrasions, no fluctuance, no induration Neurologic: AAOx3, sensation intact bilaterally Psychiatric: interacting appropriately, not anxious, not encephalopathic, thought process linear ICD10 Worksheet Patient Problems: Problems Problem Status Onset Acute chest pain Acute Symptomatic bradycardia Acute Bradycardia Acute CHF (congestive heart failure) Acute CHF exacerbation Acute COPD (chronic obstructive pulmonary disease) Acute Chest pain Acute Chest pain at rest Acute Hypertension Acute Hypoxia Acute Knee sprain Acute Migraine Acute Shortness of breath Acute Shortness of breath on exertion Acute Syncope and collapse Acute Uncontrolled hypertension Acute
[2017-11-12] MEDS: ZOLPIDEM TARTRATE 5 MG TAB PO PRN (21:48)
[2017-11-13] MEDS: METHADONE HCL 10 MG/ML UDSYR PO SCH (05:43)
[2017-11-13] MEDS: clonazePAM 0.5 MG TAB PO PRN ×2 (05:44→11:37)
[2017-11-13] MEDS: CARISOPRODOL 350 MG TAB PO PRN ×2 (05:44→09:53)
[2017-11-13 07:47] VITALS: BP 148/56
--- NOTE | 2017-11-13 08:10 | SOAPPROG ---
SOAP Progress Note Assessment/Plan: Assessment: #DEANN- non-oliguric -suspected hemodynamic-- deidra/diuretics in setting of volume depletion. Holding deidra inhib for now and given IVF overnight. Cr better 1.1. Continue to hold deidra inhib for now #resistant HTN -BP reasonable currently 130s-150s-- off deidra inhib -needs to be on CPAP at night- hospitalist working on this issue #DM2 #chronic methadone #TIGIST Carol Ann Wang MD [facility] pager [phone] 11/13/17 10:14 Subjective: Sleeping right now, didn't want to talk when I came by. CPAP mask off. Got IVF overnight, Cr 1.1 this am. BP 130s-150s. Objective: Vital Signs Temp Pulse Resp BP Pulse Ox 36.7 C 69 12 148/56 H 94 11/13/17 07:46 11/13/17 07:46 11/13/17 07:46 11/13/17 07:46 11/13/17 07:46 Laboratory Results 11/13/17 03:46 11/12/17 11/13/17 11/14/17 05:59 05:59 05:59 Intake Total 700 1940 Balance 700 1940 PT 12.8 SEC (12.0-15.0) 11/08/17 09:00 INR 0.94 (0.83-1.16) 11/08/17 09:00 Physical Exam - Physical Exam General Appearance: no apparent distress, other (sleeping but arousable, CPAP mask off) Respiratory: normal breath sounds Cardiac/Chest: regular rate, rhythm Abdomen: non-tender, soft Skin: warm/dry Extremities: other (no edema) ICD10 Worksheet Patient Problems: Problems Problem Status Onset Acute chest pain Acute Symptomatic bradycardia Acute Bradycardia Acute CHF (congestive heart failure) Acute CHF exacerbation Acute COPD (chronic obstructive pulmonary disease) Acute Chest pain Acute Chest pain at rest Acute Hypertension Acute Hypoxia Acute Knee sprain Acute Migraine Acute Shortness of breath Acute Shortness of breath on exertion Acute Syncope and collapse Acute Uncontrolled hypertension Acute
[2017-11-13] MEDS ORDERED: OXYBUTYNIN 5 MG EXT REL TAB PO SCH (09:45)
[2017-11-13] MEDS: metFORMIN HCL 500 MG TAB PO SCH (09:45)
[2017-11-13] MEDS: GABAPENTIN 300 MG CAP PO SCH (09:46)
[2017-11-13] MEDS: OXcarbazepine 300 MG TAB PO SCH (09:46)
[2017-11-13] MEDS: ENOXAPARIN 40 MG/0.4 ML SYR SC SCH (09:47)
[2017-11-13] MEDS: PANTOPRAZOLE SODIUM 40 MG TAB PO SCH (09:47)
[2017-11-13] MEDS: SENNOSIDES/DOCUSATE SODIUM TAB PO SCH (09:47)
--- NOTE | 2017-11-13 19:01 | GDS ---
[f rep st] DISCHARGE SUMMARY DISCHARGE DIAGNOSES: 1. Hypertensive urgency. 2. Acute renal failure. 3. Chest pain and shortness of breath. 4. Continuous narcotic dependency. 5. Previous IV drug abuse and heroin, now on methadone. 6. Pulmonary hypertension. 7. Morbid obesity with untreated obstructive sleep apnea. 8. Chronic obstructive pulmonary disease with ongoing tobacco dependence. 9. Chronic respiratory failure, on chronic O2 of 2 L. 10. Anxiety. 11. Diabetes type 2. 12. Bladder sling with urinary frequency. HISTORY: The patient is a 47-year-old female with a history of malignant hypertension that has been difficult to control as an outpatient. She has already had a previous workup for secondary cause of hypertension. She follows with Dr. Ware of Nephrology. She comes in to us on 5 drugs. She presente d with recurrence of chest pain and shortness of breath. Her blood pressures were found to be malign ant yet again. She was admitted to the ICU. In consultation with Nephrology, we are doing a better job controlling her hypertension. The addition of chlorthalidone, I think, really made a difference in her blood pressures. They are better than they have ever been. At the time of discharge, her blo od pressures were so good that she got a little dizzy and went into some mild acute renal failure. N ephrology is now holding her lisinopril. She should follow up closely as an outpatient. She has a h istory of beta michaela intolerance due to baseline bradycardia, and she is also taking high dose of i buprofen which is recommended that she discontinue as this can make blood pressure control more diffi cult. Regarding her chest pain and shortness of breath, she has had multiple stress tests and CT angiograms for PE in the past. She had another stress test during this hospitalization. She has an excessive radiation exposure and should think very strongly regarding ordering these tests again in the future. The patient is on very high doses of methadone. Her QT interval needs to be watched. She is known to have obstructive sleep apnea, but is not currently using CPAP. She is willing. She needs to repeat the sleep study and reinstitute CPAP as an outpatient. This may help her blood press ure control. She was noted to be borderline diabetic with hemoglobin A1c of 7.4. We have initiated her on metform in. She has a history of bladder sling with difficult urination. Postvoid residual was minimal. She was started on Ditropan at discharge for symptomatic relief. DISCHARGE MEDICATIONS: Please see computerized record for full detailed list. New medications: 1. Chlorthalidone 50 mg p.o. daily. 2. Metformin 500 mg p.o. b.i.d. 3. Oxybutynin XL 5 mg p.o. daily. 4. Gabapentin increased to 600 mg p.o. b.i.d. Discontinued medications: 1. Lisinopril 20 mg p.o. daily. 2. Lasix 40 mg b.i.d. 3. Ibuprofen. ADDITIONAL DISCHARGE INSTRUCTIONS: 1. Stop NSAIDs. 2. Outpatient sleep study to resume CPAP. 3. Recheck creatinine in 1 week. Creatinine is 1.1 at discharge, although her baseline is 0.5. 4. Follow up with primary care, Dr. Moore. 5. Follow up with Dr. Ware of Nephrology. Greater than 30 minutes' time was spent arranging this discharge. The patient was seen and examined by me on the day of discharge. /[id number]/MODL
== END 2017-11-13 12:12 | disposition home or self-care (01) | DRG 199 ==
LOC: EDUNIT# → INTOOBSV 10:40 → OBSVTOIN 10:40 → F2W 11:05 → F2N 16:02 → F2W 11-11 17:53
PROVIDERS: ADMIT Internal Medicine; ATTEND Internal Medicine
DX: I16.0 Hypertensive urgency (principal); R07.89 Other chest pain; H47.10 Unspecified papilledema; F41.9 Anxiety disorder, unspecified; F43.12 Post-traumatic stress disorder, chronic; N17.9 Acute kidney failure, unspecified; E86.9 Volume depletion, unspecified; T46.4X5A Adverse effect of angiotensin-converting-enzyme inhibitors, initial encounter; E66.01 Morbid (severe) obesity due to excess calories; G47.33 Obstructive sleep apnea (adult) (pediatric); I27.21 Secondary pulmonary arterial hypertension; J96.11 Chronic respiratory failure with hypoxia; Z99.81 Dependence on supplemental oxygen; J45.909 Unspecified asthma, uncomplicated; F17.210 Nicotine dependence, cigarettes, uncomplicated; E11.9 Type 2 diabetes mellitus without complications; Z79.84 Long term (current) use of oral hypoglycemic drugs; F11.20 Opioid dependence, uncomplicated; Z79.891 Long term (current) use of opiate analgesic; R35.0 Frequency of micturition; M54.5 Low back pain; Z79.1 Long term (current) use of non-steroidal anti-inflammatories (NSAID)
CPT/HCPCS: 97161-GP; A9500; G0472; J0360; J1650; J2785

== ENCOUNTER → 2018-02-07 | Outpatient (CLI) | payer MEDICAID | LOC: FCPNEURO 20:30 | PROVIDERS: ATTEND Student in an Organized Health Care Education/Training Program | DX: G47.33 Obstructive sleep apnea (adult) (pediatric) (principal) ==

== ENCOUNTER 2018-03-24 20:47 | Emergency (ER) | payer MEDICAID ==
[2018-03-24] MEDS ORDERED: PHENAZOPYRIDINE HCL 200 MG TAB PO ONE (21:05)
--- NOTE | 2018-03-24 21:52 | EDPHY ---
H & P Stated Complaint: lower abd pain, UTI symptoms Time Seen by Provider: 03/24/18 21:11 HPI/ROS: CHIEF COMPLAINT: Dysuria, urinary frequency HISTORY OF PRESENT ILLNESS: 48-year-old female with hypertension presents with dysuria and urinary frequency. Onset of dysuria 1 week ago. Associated with urinary frequency and pelvic pressure for the past week. Onset of fever yesterday, associated with nausea. No back pain. REVIEW OF SYSTEMS: complete 10 point ROS reviewed and is negative except for the noted elements in the HPI Source: Patient - Personal History LMP (Females 10-55): Hysterectomy Current Tetanus/Diphtheria Vaccine: Yes Tetanus Vaccine Date: 2011 - Medical/Surgical History Hx Asthma: No Hx Chronic Respiratory Disease: Yes Hx Diabetes: No Hx Cardiac Disease: Yes Hx Renal Disease: No Hx Cirrhosis: No Hx Alcoholism: No Hx HIV/AIDS: No Hx Splenectomy or Spleen Trauma: No Other PMH: COPD, CHF, chronic O2 use, brain lesions, HTN, heroin use, chronic pain, james, migraines, sleep apnea, Hysterectomy;MRSA 5-6 years ago, degenerative disc disease - Social History Smoking Status: Current every day smoker Alcohol Use: Sober Drug Use: None Additional Social History: - Physical Exam Exam: General Appearance: Alert, pleasant Eyes: Pupils equal and round, no conjunctival pallor or injection ENT, Mouth: Mucous membranes moist Neck: Normal inspection Respiratory: Lungs are clear to auscultation Cardiovascular: Regular rate and rhythm Gastrointestinal: Abdomen is soft, suprapubic tenderness Neurological: A&O, nonfocal, normal gait Skin: Warm and dry Extremities: Nontender, no pedal edema Psychiatric: Mood and affect normal Constitutional: Initial Vital Signs Temperature (C) 36.8 C 03/24/18 20:50 Heart Rate 79 03/24/18 20:50 Respiratory Rate 18 03/24/18 20:50 Blood Pressure 235/130 H 03/24/18 20:50 O2 Sat (%) 92 03/24/18 20:50 O2 Delivery Mode Room Air Allergies/Adverse Reactions: Sulfa (Sulfonamide Antibiotics) Allergy (Severe, Verified 03/24/18 20:53) CAN'T BREATHE metoclopramide HCl [From Reglan] Allergy (Intermediate, Verified 03/24/18 20:53) jaw clenched up tramadol HCl [From Ultram] Allergy (Unknown, Verified 03/24/18 20:53) TROUBLE BREATHING,HIVES amoxicillin trihydrate [From Augmentin] Allergy (Verified 03/24/18 20:53) potassium clavulanate [From Augmentin] Allergy (Verified 03/24/18 20:53) propranolol HCl [From Inderal] Allergy (Verified 03/24/18 20:53) Hives Home Medications: Medication Instructions Recorded amLODIPine BESYLATE [Norvasc 10 mg 10 mg PO DAILY 10/03/15 (*)] OXcarbazepine [Trileptal 300mg (*)] 600 mg PO DAILY 10/06/15 OXcarbazepine [Trileptal 300mg (*)] 900 mg PO HS 10/06/15 hydrALAZINE [Apresoline 50 mg (*)] 100 mg PO TID 05/28/16 hydrOXYzine HCL [hydrOXYzine HCL 50 mg PO BID PRN 05/28/16 (RX)] Albuterol [Proventil Inhaler HFA 1 - 2 puffs IH DAILY PRN 10/05/16 (*)] clonIDINE [Catapres (*)] 0.3 mg PO TID 10/05/16 Methadone 224mg 224 mg PO BID@0530,1430 11/08/17 Zolpidem Tartrate [Ambien 5MG (*)] 5 mg PO HS PRN 11/08/17 clonazePAM [Klonopin (*)] 0.5 mg PO TID PRN 11/08/17 Chlorthalidone [Chlorthalidone 25 50 mg PO DAILY #60 tab 11/13/17 mg (*)] Gabapentin [Neurontin 300 MG (*)] 600 mg PO BID #120 cap 11/13/17 Oxybutynin Chloride Xl [Ditropan 5 mg PO DAILY #30 tab 11/13/17 Xl 5mg (*)] metFORMIN HCL [Glucophage 500 mg 500 mg PO BIDMEAL #60 tab 11/13/17 (*)] traZODone [traZODone 150MG (*)] 150 mg PO HS #30 tab 11/13/17 Cefdinir [Omnicef (*)] 300 mg PO BID #20 cap 03/24/18 Medical Decision Making ED Course/Re-evaluation: Triage blood pressure 230/120, repeat BP 223/112. I strongly advised IV BP meds and admission. Pt declines. She is a competent decision maker and clearly understands the risks and benefits of this decision, including CVA and acute coronary syndrome. She hasn't taken her evening BP meds and BP is usually very high in ED. Urinalysis reveals urinary tract infection. Urine culture sent. Given fever, will treat for upper tract infection with Omnicef. - Data Points Laboratory Results: 03/24/18 03/24/18 20:55 20:55 Urine Color YELLOW Urine Appearance HAZY Urine pH 6.0 (5.0-7.5) Ur Specific [place] 1.017 (1.002-1.030) Urine Protein 2+ H (NEGATIVE) Urine Ketones NEGATIVE (NEGATIVE) Urine Blood 2+ H (NEGATIVE) Urine Nitrate NEGATIVE (NEGATIVE) Urine Bilirubin NEGATIVE (NEGATIVE) Urine Urobilinogen NEGATIVE EU EU (0.2-1.0) Ur Leukocyte Esterase 3+ H (NEGATIVE) Urine RBC 50-182 /hpf H /hpf (0-3) Urine WBC 50-182 /hpf H /hpf (0-3) Ur Epithelial Cells TRACE /lpf /lpf (NONE-1+) Urine Bacteria TRACE /hpf H /hpf (NONE SEEN) Urine Mucus TRACE /lpf /lpf (NONE-1+) Urine Glucose NEGATIVE (NEGATIVE) Urine Test NEGATIVE Medications Given: Discontinued Medications Phenazopyridine HCl (Pyridium) 200 mg PO EDNOW ONE Stop: 03/24/18 21:06 Last Admin: 03/24/18 21:09 Dose: 200 mg Point of Care Test Results: Urine Dip Collection Date 03/24/18 Collection Time 20:55 Specific [place] (1.002-1.030) 1.015 PH (5.0-7.5) 6.5 Leukocytes (Negative) 2+ Nitrites (Negative) Positive Protein (Negative) 2+ Glucose (Negative) Negative Ketones (Negative) Negative Urobilnogen (0.2-1.0 EU) 0.2 Bilirubin (Negative) Negative Blood (Negative) 3+ Departure - Departure Disposition: Home, Routine, Self-Care Clinical Impression: Uncontrolled hypertension Urinary tract infection Qualifiers: Urinary tract infection type: acute cystitis Hematuria presence: with hematuria Qualified Code(s): N30.01 - Acute cystitis with hematuria Condition: Fair Instructions: Urinary Tract Infection in Women (ED), Hypertension (ED) Additional Instructions: Please check and record your blood pressure 3 times daily. If your blood pressure remains high, please return to the emergency department. Referrals: Christiano Sandoval MD [Primary Care Provider] - As per Instructions Prescriptions: Cefdinir [Omnicef (*)] 300 mg PO BID #20 cap
[2018-03-24] MEDS ORDERED: CEFDINIR 300 MG CAP PO ONE (21:55)
[2018-03-24 22:05] VITALS: BP 223/112
== END 2018-03-24 22:23 | disposition home or self-care (01) ==
DX: N39.0 Urinary tract infection, site not specified (principal); I10 Essential (primary) hypertension; J44.9 Chronic obstructive pulmonary disease, unspecified; Z79.4 Long term (current) use of insulin; F17.210 Nicotine dependence, cigarettes, uncomplicated

== ENCOUNTER 2018-05-09 21:03 | Emergency (ER) | payer MEDICAID ==
--- NOTE | 2018-05-09 21:15 | EDPHY ---
H & P Stated Complaint: high BP for one week, CP, and COBB Time Seen by Provider: 05/09/18 21:14 - Personal History LMP (Females 10-55): Hysterectomy Current Tetanus/Diphtheria Vaccine: Yes Current Tetanus Diphtheria and Acellular Pertussis (TDAP): Yes Tetanus Vaccine Date: 2011 - Medical/Surgical History Hx Asthma: No Hx Chronic Respiratory Disease: Yes Hx Diabetes: Yes Hx Cardiac Disease: Yes Hx Renal Disease: No Hx Cirrhosis: No Hx Alcoholism: No Hx HIV/AIDS: No Hx Splenectomy or Spleen Trauma: No Other PMH: COPD, CHF, chronic O2 use, brain lesions, HTN, heroin use, chronic pain, james, migraines, sleep apnea, Hysterectomy;MRSA 5-6 years ago, degenerative disc disease - Social History Smoking Status: Current every day smoker Constitutional: Initial Vital Signs Temperature (C) 37.0 C 05/09/18 21:06 Heart Rate 66 05/09/18 21:06 Respiratory Rate 18 05/09/18 21:06 Blood Pressure 221/94 H 05/09/18 21:06 O2 Sat (%) 94 05/09/18 21:06 O2 Delivery Mode Room Air Allergies/Adverse Reactions: Sulfa (Sulfonamide Antibiotics) Allergy (Severe, Verified 05/09/18 21:10) CAN'T BREATHE metoclopramide HCl [From Reglan] Allergy (Intermediate, Verified 05/09/18 21:10) jaw clenched up tramadol HCl [From Ultram] Allergy (Unknown, Verified 05/09/18 21:10) TROUBLE BREATHING,HIVES amoxicillin trihydrate [From Augmentin] Allergy (Verified 05/09/18 21:10) potassium clavulanate [From Augmentin] Allergy (Verified 05/09/18 21:10) propranolol HCl [From Inderal] Allergy (Verified 05/09/18 21:10) Hives Home Medications: Medication Instructions Recorded amLODIPine BESYLATE [Norvasc 10 mg 10 mg PO DAILY 10/03/15 (*)] OXcarbazepine [Trileptal 300mg (*)] 600 mg PO DAILY 10/06/15 OXcarbazepine [Trileptal 300mg (*)] 900 mg PO HS 10/06/15 hydrALAZINE [Apresoline 50 mg (*)] 100 mg PO TID 05/28/16 Albuterol [Proventil Inhaler HFA 1 - 2 puffs IH DAILY PRN 10/05/16 (*)] clonIDINE [Catapres (*)] 0.3 mg PO TID 10/05/16 Methadone 224mg 224 mg PO BID@0530,1430 11/08/17 Zolpidem Tartrate [Ambien 5MG (*)] 5 mg PO HS PRN 11/08/17 clonazePAM [Klonopin (*)] 0.5 mg PO TID PRN 11/08/17 Chlorthalidone [Chlorthalidone 25 50 mg PO DAILY #60 tab 11/13/17 mg (*)] Gabapentin [Neurontin 300 MG (*)] 600 mg PO BID #120 cap 11/13/17 Oxybutynin Chloride Xl [Ditropan 5 mg PO DAILY #30 tab 11/13/17 Xl 5mg (*)] metFORMIN HCL [Glucophage 500 mg 500 mg PO BIDMEAL #60 tab 11/13/17 (*)] traZODone [traZODone 150MG (*)] 150 mg PO HS #30 tab 11/13/17 Cefdinir [Omnicef (*)] 300 mg PO BID #20 cap 03/24/18 Soma 05/09/18 clonIDINE [Catapres (*)] 0.1 mg PO TID #90 tab 05/09/18 Medical Decision Making ED Course/Re-evaluation: CHIEF COMPLAINT: Hypertension, chest pain, dyspnea HISTORY OF PRESENT ILLNESS: The patient is a 48 y/o female with multiple comorbidities including COPD, CHF, hypertension, chronic pain, and prior episodes of kidney failure during hospitalizations who arrives at the referral of her custom furrier complaining of hypertension for the last 10 days. She says her BP has "hit as high as 271/170" over this period. She has intermittent chest pain and dyspnea as well. She reports she is taking all her medications as directed including multiple hypertensives and diuretic. REVIEW OF SYSTEMS: A comprehensive 10 system review of systems is otherwise negative aside from elements mentioned in the history of present illness and medical decision making. PHYSICAL EXAM: HR, BP 221/94, O2 Sat, RR. Temp noted General Appearance: Alert, well hydrated, appropriate, and non-toxic appearing. Obese. Head: Atraumatic without scalp tenderness or obvious injury Eyes: Pupils equal, round, reactive to light and accommodation, EOMI, no trauma , no injection. Nose: Atraumatic, no rhinorrhea, clear. Throat: Mucus membranes moist. Neck: Supple, nontender, no lymphadenopathy. Respiratory: No retractions, no distress, no wheezes, and no accessory muscle use. Lungs are clear to auscultation bilaterally. Cardiovascular: Regular rate and rhythm, no murmurs, rubs, or gallops. Good capillary refill all extremities. Gastrointestinal: Abdomen is soft, nontender, non-distended, no masses, no rebound, no guarding, no peritoneal signs. Musculoskeletal: Normal active ROM of all extremities, atraumatic. Neurological: Alert, appropriate, and interactive. The patient has non-focal cranial nerves, motor, sensory, and cerebellar exam. Skin: No rashes, good turgor, no nodules on palpation. Past medical history: COPD, CHF, chronic O2 use, partial idiopathic epilepsy, HTN, heroin use, chronic pain, bradycardia, migraines, sleep apnea, MRSA, degenerative disc disease, episodes of kidney failure Past surgical history: Hysterectomy Family history: Noncontributory Social history: Long history of smoking. Family member at bedside. PCP: Dr. Sandoval. Prior medical records reviewed including admission 11/08/17 for dyspnea. DIAGNOSTICS/PROCEDURES/CRITICAL CARE TIME: The 12 lead EKG was interpreted by myself. Sinus mechanism, no ischemic changes. See hard copy and/or "tracemaster" electronic copy for interpretation. DIFFERENTIAL DIAGNOSIS: The differential diagnosis for the patient's hypertension included but was not limited to hypertensive urgency, hypertensive emergency, transient hypertension, renovascular hypertension, idiopathic hypertension, hypertensive with or without evidence of end-organ damage. MEDICAL DECISION MAKING: This is a 48 y/o female with hypertension and multiple comorbidities who presents with a 10-day history of hypertension with intermittent associated chest pain and dyspnea. Her BP was 221/94 in triage. No acute findings on exam. Plan for IV, ISTAT, EKG, and symptom management. 0.3mg PO Catapres ordered. Troponin negative. Electrolytes and creatinine normal. No evidence of hypertensive urgency or emergency. Reassessed patient and discussed findings. Plan for discharge with instructions to increase her Catapres to 0.4mg TID and follow up with her PCP for further blood pressure management. She is comfortable with this plan. Return precautions discussed. - Data Points Laboratory Results: 05/09/18 05/09/18 22:20 22:17 POC Hgb 12.2 gm/dL L gm/dL (12.6-16.3) POC Hct 36 % L % (38-47) POC Sodium 141 mEq/L mEq/L (135-145) POC Potassium 3.5 mEq/L mEq/L (3.3-5.0) POC Chloride 100 mEq/L mEq/L (97-110) POC BUN 16 mg/dL mg/dL (7-23) POC Creatinine 0.6 mg/dL mg/dL (0.6-1.0) POC Glucose 136 mg/dL H mg/dL (70-100) POC Troponin I 0.00 ng/mL ng/mL (0.00-0.08) Medications Given: Discontinued Medications Clonidine (Catapres) 0.3 mg PO EDNOW ONE Stop: 05/09/18 21:50 Last Admin: 05/09/18 22:15 Dose: 0.3 mg Point of Care Test Results: Chemistry 05/09/18 05/09/18 22:20 22:17 POC Sodium 141 mEq/L mEq/L (135-145) POC Potassium 3.5 mEq/L mEq/L (3.3-5.0) POC Chloride 100 mEq/L mEq/L (97-110) POC BUN 16 mg/dL mg/dL (7-23) POC Creatinine 0.6 mg/dL mg/dL (0.6-1.0) POC Glucose 136 mg/dL H mg/dL (70-100) POC Troponin I 0.00 ng/mL ng/mL (0.00-0.08) ISTAT H&H 05/09/18 22:20 POC Hgb 12.2 gm/dL L gm/dL (12.6-16.3) POC Hct 36 % L % (38-47) Departure - Departure Disposition: Home, Routine, Self-Care Clinical Impression: Hypertension Qualifiers: Hypertension type: unspecified Qualified Code(s): I10 - Essential (primary) hypertension Condition: Good Instructions: Hypertension (ED) Additional Instructions: Increase Catapres from 0.3mg to 0.4mg three times daily. Continue all other medications as prescribed. Follow up with your PCP in the next 2-3 days for further management of your blood pressure. Referrals: Christiano Sandoval MD [Primary Care Provider] - As per Instructions Prescriptions: clonIDINE [Catapres (*)] 0.1 mg PO TID #90 tab Report Scribed for: Mando Leong Report Scribed by: Elyssa Gregory Date of Report: 05/09/18 Time of Report: 21:16
[2018-05-09 22:45] VITALS: BP 237/110
--- NOTE | 2018-05-10 09:23 | CPEKG ---
Test Reason : OPEN Blood Pressure : / mmHG Vent. Rate : 059 BPM Atrial Rate : 059 BPM P-R Int : 164 ms QRS Dur : 091 ms QT Int : 458 ms P-R-T Axes : 032 047 034 degrees QTc Int : 454 ms Sinus rhythm Consider left ventricular hypertrophy ST elev, probable normal early repol pattern Confirmed by Bailey Jackson ([id number]) on 05/10/2018 9:23:22 AM Referred By: Confirmed By:Bailey Jackson
== END 2018-05-09 22:43 | disposition home or self-care (01) ==
DX: I10 Essential (primary) hypertension (principal); J44.9 Chronic obstructive pulmonary disease, unspecified; Z86.79 Personal history of other diseases of the circulatory system
CPT/HCPCS: 82435-PO; 82565-PO; 82947-PO; 84132-PO; 84295-PO; 84484-PO; 84520-PO; 85014-PO

== ENCOUNTER 2018-06-19 13:55 | Inpatient (IN) | payer MEDICAID ==
--- NOTE | 2018-06-19 14:23 | EDPHY ---
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 The patient is on a number of agents for control of her hypertension which is been somewhat difficult to manage for the past several weeks. The patient complains of intermittent symptoms of vague dyspnea and chest pain. She denies any fever, cough or congestion. The patient denies any decreased urine output. The patient was seen by her mapping editor today and referred to the ED for further evaluation. REVIEW OF SYSTEMS: A comprehensive 10 point review of systems is otherwise negative aside from elements mentioned in the history of present illness. Source: Patient Exam Limitations: No limitations - Personal History Current Tetanus/Diphtheria Vaccine: Yes Current Tetanus Diphtheria and Acellular Pertussis (TDAP): Yes Tetanus Vaccine Date: 2011 - Medical/Surgical History Hx Asthma: No Hx Chronic Respiratory Disease: Yes Hx Diabetes: Yes Hx Cardiac Disease: Yes Hx Renal Disease: No Hx Cirrhosis: No Hx Alcoholism: No Hx HIV/AIDS: No Hx Splenectomy or Spleen Trauma: No Other PMH: COPD, CHF, chronic O2 use, brain lesions, HTN, heroin use, chronic pain, james, migraines, sleep apnea, Hysterectomy;MRSA 5-6 years ago, degenerative disc disease - Social History Smoking Status: Current every day smoker - Physical Exam Exam: General Appearance: Alert, no distress Eyes: Pupils equal and round no pallor or injection ENT, Mouth: Mucous membranes moist Respiratory: There are no retractions, lungs are clear to auscultation Cardiovascular: Regular rate and rhythm Gastrointestinal: Abdomen is soft and nontender, no masses, bowel sounds normal Neurological: 5/5 strength noted all 4 extremities Skin: Warm and dry, no rashes Musculoskeletal: Neck is supple nontender Extremities: symmetrical, full range of motion Psychiatric: Patient is oriented X 3, there is no agitation Constitutional: Initial Vital Signs Temperature (C) 36.9 C 06/19/18 14:01 Heart Rate 93 06/19/18 14:01 Respiratory Rate 16 06/19/18 14:01 Blood Pressure 274/152 H 06/19/18 14:01 O2 Sat (%) 93 06/19/18 14:01 O2 Delivery Mode Room Air Allergies/Adverse Reactions: Sulfa (Sulfonamide Antibiotics) Allergy (Severe, Verified 06/19/18 13:59) CAN'T BREATHE metoclopramide HCl [From Reglan] Allergy (Intermediate, Verified 06/19/18 13:59) jaw clenched up tramadol HCl [From Ultram] Allergy (Unknown, Verified 06/19/18 13:59) TROUBLE BREATHING,HIVES amoxicillin trihydrate [From Augmentin] Allergy (Verified 06/19/18 13:59) potassium clavulanate [From Augmentin] Allergy (Verified 06/19/18 13:59) propranolol HCl [From Inderal] Allergy (Verified 06/19/18 13:59) Hives Home Medications: Medication Instructions Recorded amLODIPine BESYLATE [Norvasc 10 mg 10 mg PO DAILY 10/03/15 (*)] OXcarbazepine [Trileptal 300mg (*)] 600 mg PO DAILY 10/06/15 OXcarbazepine [Trileptal 300mg (*)] 900 mg PO HS 10/06/15 hydrALAZINE [Apresoline 50 mg (*)] 100 mg PO TID 05/28/16 Albuterol [Proventil Inhaler HFA 1 - 2 puffs IH DAILY PRN 10/05/16 (*)] clonIDINE [Catapres (*)] 0.3 mg PO TID 10/05/16 Methadone 224mg 224 mg PO BID@0530,1430 11/08/17 Zolpidem Tartrate [Ambien 5MG (*)] 5 mg PO HS PRN 11/08/17 clonazePAM [Klonopin (*)] 0.5 mg PO TID PRN 11/08/17 Chlorthalidone [Chlorthalidone 25 50 mg PO DAILY #60 tab 11/13/17 mg (*)] Gabapentin [Neurontin 300 MG (*)] 600 mg PO BID #120 cap 11/13/17 metFORMIN HCL [Glucophage 500 mg 500 mg PO BIDMEAL #60 tab 11/13/17 (*)] traZODone [traZODone 150MG (*)] 150 mg PO HS #30 tab 11/13/17 Soma 05/09/18 clonIDINE [Catapres (*)] 0.1 mg PO TID #90 tab 11/16/18 Medical Decision Making - Diagnostics EKG Interpretation: EKG: Complete interpretation has been separately recorded in the Tracemaster archive. Summary impression: Sinus rhythm, rate 84 Imaging Results: Chest x-ray AP: Images reviewed by myself, no joleen pulmonary edema noted per my interpretation. ED Course/Re-evaluation: Patient was reportedly significantly hypertensive in triage. At the time of my evaluation she is 236/120. Consultation is made with her nephrology physician at 2:30 p.m.. The patient presents to the ED with a hypertensive emergency. Blood pressures been as high as 270/170. The patient is started on a Cardene - goal BP will be 180/120 within the hour. Consultation is made with the hospitalist service. The patient will be admitted to the step-down unit for further management. The patient will be admitted by Dr. Wolfe. I spoke with him at 3:00 p.m.. Consultation was made with the mapping editor. I spoke with Dr. Almazan at 3: 30 p.m.. He is aware of the patient and will see her in consultation this afternoon. Blood pressure recheck 219/105 at 3:35pm. Nicardipine drip increased to 7.5. Patient transferred to the step-down unit. Critical Care Time: Critical care time exclusive of procedures and exclusive of the PA's time was 35 minutes, performed by myself, Alan Shaikh MD. The patient presents to the ED with a hypertensive emergency requiring a - Data Points Laboratory Results: Laboratory Results 06/19/18 14:16 06/19/18 14:16 06/19/18 06/19/18 06/19/18 14:22 14:16 14:16 WBC 9.46 10^3/uL 10^3/uL (3.80-9.50) RBC 4.36 10^6/uL 10^6/uL (4.18-5.33) Hgb 13.6 g/dL g/dL (12.6-16.3) Hct 39.4 % % (38.0-47.0) MCV 90.4 fL fL (81.5-99.8) MCH 31.2 pg pg (27.9-34.1) MCHC 34.5 g/dL g/dL (32.4-36.7) RDW 13.4 % % (11.5-15.2) Plt Count 344 10^3/uL 10^3/uL (150-400) MPV 10.4 fL fL (8.7-11.7) Neut % (Auto) 53.1 % % (39.3-74.2) Lymph % (Auto) 34.0 % % (15.0-45.0) [place] % (Auto) 7.3 % % (4.5-13.0) Eos % (Auto) 4.3 % % (0.6-7.6) Baso % (Auto) 1.0 % % (0.3-1.7) Nucleat RBC Rel Count 0.0 % % (0.0-0.2) Absolute Neuts (auto) 5.02 10^3/uL 10^3/uL (1.70-6.50) Absolute Lymphs (auto) 3.22 10^3/uL H 10^3/uL (1.00-3.00) Absolute Monos (auto) 0.69 10^3/uL 10^3/uL (0.30-0.80) Absolute Eos (auto) 0.41 10^3/uL H 10^3/uL (0.03-0.40) Absolute Basos (auto) 0.09 10^3/uL 10^3/uL (0.02-0.10) Absolute Nucleated RBC 0.00 10^3/uL 10^3/uL (0-0.01) Immature Gran % 0.3 % % (0.0-1.1) Immature Gran # 0.03 10^3/uL 10^3/uL (0.00-0.10) Sodium 137 mEq/L mEq/L (135-145) Potassium 3.9 mEq/L mEq/L (3.5-5.2) Chloride 103 mEq/L mEq/L (97-110) Carbon Dioxide 23 mEq/l mEq/l (22-31) Anion Gap 11 mEq/L mEq/L (6-14) BUN 18 mg/dL mg/dL (7-23) Creatinine 0.5 mg/dL L mg/dL (0.6-1.0) Estimated GFR > 60 Glucose 142 mg/dL H mg/dL (70-100) Calcium 9.6 mg/dL mg/dL (8.5-10.4) POC Troponin I 0.03 ng/mL ng/mL (0.00-0.08) Troponin I 0.025 ng/mL ng/mL (0.000-0.034) Medications Given: Nicardipine/Sodium Chloride (Cardene 0.1 Mg/Ml (Premix)) 200 mls @ 0 mls/hr IV CONT QASIM; Titrate PRN Reason: Protocol Stop: 12/16/18 14:59 Last Admin: 06/19/18 15:06 Dose: 200 mls Point of Care Test Results: Chemistry 06/19/18 14:22 POC Troponin I 0.03 ng/mL ng/mL (0.00-0.08) Departure - Departure Disposition: [facility] Inpatient Acute Clinical Impression: Hypertensive emergency Condition: Critical
[2018-06-19 14:28] LABS: PLATELET COUNT 344 10^3/uL (150-400)
[2018-06-19] MEDS ORDERED: niCARdipine/NACL 200 ML IV SCH ×2 (15:00→16:00)
--- NOTE | 2018-06-19 15:43 | PDGENHP ---
History and Physical - Chief Complaint HTN - History of Present Illness The patient presents from her wash test checker's office with uncontrolled hypertension, chest pain, dyspnea, and nausea. The patient is on a number of agents for control of her hypertension which is been somewhat difficult to manage for the past several weeks. The patient complains of intermittent symptoms of vague dyspnea and chest pain. She denies any fever, cough or congestion. The patient denies any decreased urine output. The patient was seen by her wash test checker today and referred to the ED for further evaluation. In the ER she has been started on a Cardene drip with some improvement Nephrology has been consulted since her BP has decreased she is no longer c/o cp or SOB. No neurological deficits PMHx: COPD, CHF, chronic O2 use, brain lesions, HTN, heroin use, chronic pain, james, migraines, sleep apnea, Hysterectomy;MRSA 5-6 years ago, degenerative disc disease Social Hx: Smoking Status: Current every day smoker No ETOH FMHx: NC History Information - Allergies/Home Medication List Allergies/Adverse Reactions: Sulfa (Sulfonamide Antibiotics) Allergy (Severe, Verified 06/19/18 13:59) CAN'T BREATHE metoclopramide HCl [From Reglan] Allergy (Intermediate, Verified 06/19/18 13:59) jaw clenched up tramadol HCl [From Ultram] Allergy (Unknown, Verified 06/19/18 13:59) TROUBLE BREATHING,HIVES amoxicillin trihydrate [From Augmentin] Allergy (Verified 06/19/18 13:59) potassium clavulanate [From Augmentin] Allergy (Verified 06/19/18 13:59) propranolol HCl [From Inderal] Allergy (Verified 06/19/18 13:59) Hives Home Medications: amLODIPine BESYLATE [Norvasc 10 mg (*)] 10 mg PO DAILY 10/03/15 [Last Taken 05:30] OXcarbazepine [Trileptal 300mg (*)] 600 mg PO DAILY 10/06/15 [Last Taken 05:30] OXcarbazepine [Trileptal 300mg (*)] 900 mg PO HS 10/06/15 [Last Taken 11/07/17] hydrALAZINE [Apresoline 50 mg (*)] 100 mg PO TID 05/28/16 [Last Taken 11/08/17 05:30] Albuterol [Proventil Inhaler HFA (*)] 1 - 2 puffs IH DAILY PRN 10/05/16 [Last Taken Unknown] clonIDINE [Catapres (*)] 0.3 mg PO TID 10/05/16 [Last Taken 11/08/17 05:30] Methadone 224mg 224 mg PO BID@0530,1430 11/08/17 [Last Taken 11/08/17 05:30] Zolpidem Tartrate [Ambien 5MG (*)] 5 mg PO HS PRN 11/08/17 [Last Taken 11/07/17] clonazePAM [Klonopin (*)] 0.5 mg PO TID PRN 11/08/17 [Last Taken 11/07/17] Soma 05/09/18 [Last Taken Unknown] I have personally reviewed and updated: medical history, social history - Past Medical History Additional medical history: Hypertension. diastolic CHF. COPD. TIGIST on nightly O2. GERD. Morbid obesity. chronic pain syndrome on chronic methadone therapy - Surgical History Additional surgical history: tonsillectomy. hysterectomy. cholecystectomy. bunionectomy - Family History Positive for: non-pertinent - Social History Smoking Status: Current every day smoker Additional social history: Patient currently lives with her , child and mother. Review of Systems Review of Systems: ROS: 10pt was reviewed & negative except for what was stated in HPI & below Physical Exam Physical Exam: Temp Pulse Resp BP Pulse Ox 36.9 C 93 18 199/102 H 94 06/19/18 14:01 06/19/18 15:31 06/19/18 15:31 06/19/18 15:31 06/19/18 15:31 Constitutional: no apparent distress Eyes: PERRL, EOMI Ears, Nose, Mouth, Throat: moist mucous membranes, hearing normal Cardiovascular: regular rate and rhythym Respiratory: no respiratory distress, no rales or rhonchi, clear to auscultation Gastrointestinal: normoactive bowel sounds, soft, non-tender abdomen Skin: warm Musculoskeletal: full muscle strength Neurologic: AAOx3 Psychiatric: interacting appropriately, not anxious, not encephalopathic Lab Data & Imaging Review 06/19/18 14:16 06/19/18 14:16 WBC 9.46 10^3/uL (3.80-9.50) 06/19/18 14:16 RBC 4.36 10^6/uL (4.18-5.33) 06/19/18 14:16 Hgb 13.6 g/dL (12.6-16.3) 06/19/18 14:16 Hct 39.4 % (38.0-47.0) 06/19/18 14:16 MCV 90.4 fL (81.5-99.8) 06/19/18 14:16 MCH 31.2 pg (27.9-34.1) 06/19/18 14:16 MCHC 34.5 g/dL (32.4-36.7) 06/19/18 14:16 RDW 13.4 % (11.5-15.2) 06/19/18 14:16 Plt Count 344 10^3/uL (150-400) 06/19/18 14:16 MPV 10.4 fL (8.7-11.7) 06/19/18 14:16 Neut % (Auto) 53.1 % (39.3-74.2) 06/19/18 14:16 Lymph % (Auto) 34.0 % (15.0-45.0) 06/19/18 14:16 [place] % (Auto) 7.3 % (4.5-13.0) 06/19/18 14:16 Eos % (Auto) 4.3 % (0.6-7.6) 06/19/18 14:16 Baso % (Auto) 1.0 % (0.3-1.7) 06/19/18 14:16 Nucleat RBC Rel Count 0.0 % (0.0-0.2) 06/19/18 14:16 Absolute Neuts (auto) 5.02 10^3/uL (1.70-6.50) 06/19/18 14:16 Absolute Lymphs (auto) 3.22 10^3/uL (1.00-3.00) H 06/19/18 14:16 Absolute Monos (auto) 0.69 10^3/uL (0.30-0.80) 06/19/18 14:16 Absolute Eos (auto) 0.41 10^3/uL (0.03-0.40) H 06/19/18 14:16 Absolute Basos (auto) 0.09 10^3/uL (0.02-0.10) 06/19/18 14:16 Absolute Nucleated RBC 0.00 10^3/uL (0-0.01) 06/19/18 14:16 Immature Gran % 0.3 % (0.0-1.1) 06/19/18 14:16 Immature Gran # 0.03 10^3/uL (0.00-0.10) 06/19/18 14:16 Sodium 137 mEq/L (135-145) 06/19/18 14:16 Potassium 3.9 mEq/L (3.5-5.2) 06/19/18 14:16 Chloride 103 mEq/L (97-110) 06/19/18 14:16 Carbon Dioxide 23 mEq/l (22-31) 06/19/18 14:16 Anion Gap 11 mEq/L (6-14) 06/19/18 14:16 BUN 18 mg/dL (7-23) 06/19/18 14:16 Creatinine 0.5 mg/dL (0.6-1.0) L 06/19/18 14:16 Estimated GFR > 60 06/19/18 14:16 Glucose 142 mg/dL (70-100) H 06/19/18 14:16 Calcium 9.6 mg/dL (8.5-10.4) 06/19/18 14:16 POC Troponin I 0.03 ng/mL (0.00-0.08) 06/19/18 14:22 Troponin I 0.025 ng/mL (0.000-0.034) 06/19/18 14:16 Assessment & Plan Assessment: #Hypertensive emergency (Acute) -SDU -Cont Cardene Drip, BP is responding -Nephrology to see this afternoon #CHF, appears Euvolemic currently #CP -cycle trop -TTE -Telemetry #Nausea, likely due to HTN -anti emetics #COPD, Chronic Resp Failure, TIGIST -at baseline, not in exacerbation -Does not use a CPAP #chronic pain syndrome #Tobacco Abuse d/o #Anxiety Plan: Admit stepdown await Nephrology cont Cardene drip cont appropriate home meds once a list is available
[2018-06-19] MEDS ORDERED: D50W 25 GM/50 ML SYR IVP PRN (15:45)
[2018-06-19] MEDS ORDERED: NICOTINE 21 MG/24 HR PATCH TD ONE (15:51)
[2018-06-19] MEDS ORDERED: ONDANSETRON DISINTEGRATING 4 MG TAB PO PRN (15:53)
[2018-06-19] MEDS ORDERED: ALBUTEROL 3 ML DEYVIAL IH PRN (15:53)
[2018-06-19] MEDS ORDERED: LORazepam 0.5 MG TAB PO PRN (15:53)
[2018-06-19] MEDS ORDERED: LORazepam 2 MG/ML INJ IVP PRN (15:53)
[2018-06-19] MEDS ORDERED: ONDANSETRON 4 MG/2 ML VIAL IVP PRN (15:53)
[2018-06-19] MEDS ORDERED: HYDROmorphONE/DILAUDID 1 MG/ML INJ IVP PRN (15:53)
[2018-06-19] MEDS: ACETAMINOPHEN 325 MG TAB PO PRN (16:08)
[2018-06-19] MEDS ORDERED: ALBUTEROL 60 PUFFS/8 GM MDI IH PRN (16:29)
[2018-06-19] MEDS: clonazePAM 0.5 MG TAB PO PRN (16:54)
[2018-06-19] MEDS: CARISOPRODOL 350 MG TAB PO PRN ×2 (17:38→21:35)
--- NOTE | 2018-06-19 17:54 | CPEKG ---
Test Reason : OPEN Blood Pressure : / mmHG Vent. Rate : 084 BPM Atrial Rate : 083 BPM P-R Int : 152 ms QRS Dur : 079 ms QT Int : 365 ms P-R-T Axes : 063 043 034 degrees QTc Int : 432 ms Sinus rhythm Biatrial enlargement Probable left ventricular hypertrophy Confirmed by Alan Shaikh ([id number]) on 06/19/2018 5:53:56 PM Referred By: Confirmed By:Alan Shaikh
[2018-06-19] MEDS: INSULIN LISPRO 100 UNIT/ML SC SCH ×2 (18:05→18:34)
[2018-06-19] MEDS: METHADONE HCL 10 MG/ML UDSYR PO SCH (18:29)
--- NOTE | 2018-06-19 20:02 | PDCONSULT ---
Water Resource Consultant Note: Renal Consult Note - Chief Complaint Visual changes - History of Present Illness The patient is a 48 y/o F with a known h/o uncontrolled HTN since age 20 who presented from her sustainable agriculture specialist's office, Dr. Ware for SBP>250mmHg with double vision and headache. She states that her blood pressures have been running higher over the last month, despite her compliance with medications and CPAP. She has a strong family h/o HTN and has undergone work-up for secondary HTN. She has followed with Dr. Ware>1 year since being admitted for CHF and having an DEANN from diuresis at that time. She denies eating more sodium over the holidays and states that her tries to cook fresh food for her at home. She admits to still smoking, however has decreased from 2 1/2 packs daily to 1 cigarette per day at times. She denies infectious symptoms, changes in urination , use of illicit drugs and other ROS. She states her symptoms have resolved since being placed on a cardene gtt. PMHx: COPD, CHF, chronic O2 use, brain lesions, HTN, heroin use, chronic pain, james, migraines, sleep apnea, Hysterectomy;MRSA 5-6 years ago, degenerative disc disease Social Hx: Smoking Status: Current every day smoker No ETOH FMHx: + HTN and CAD mother and father History Information - Allergies/Home Medication List Allergies/Adverse Reactions: Sulfa (Sulfonamide Antibiotics) Allergy (Severe, Verified 06/19/18 13:59)CAN'T BREATHE metoclopramide HCl [From Reglan] Allergy (Intermediate, Verified 06/19/18 13:59) jaw clenched up tramadol HCl [From Ultram] Allergy (Unknown, Verified 06/19/18 13:59)TROUBLE BREATHING,HIVES amoxicillin trihydrate [From Augmentin] Allergy (Verified 06/19/18 13:59) potassium clavulanate [From Augmentin] Allergy (Verified 06/19/18 13:59) propranolol HCl [From Inderal] Allergy (Verified 06/19/18 13:59) Hives Home Medications: amLODIPine BESYLATE [Norvasc 10 mg (*)] 10 mg PO DAILY 10/03/15 [Last Taken 05:30] OXcarbazepine [Trileptal 300mg (*)] 600 mg PO DAILY 10/06/15 [Last Taken 05:30] OXcarbazepine [Trileptal 300mg (*)] 900 mg PO HS 10/06/15 [Last Taken 11/07/17] hydrALAZINE [Apresoline 50 mg (*)] 100 mg PO TID 05/28/16 [Last Taken 11/08/17 05:30] Albuterol [Proventil Inhaler HFA (*)] 1 - 2 puffs IH DAILY PRN 10/05/16 [Last Taken Unknown] clonIDINE [Catapres (*)] 0.3 mg PO TID 10/05/16 [Last Taken 11/08/17 05:30] Methadone 224mg 224 mg PO BID@0530,1430 11/08/17 [Last Taken 11/08/17 05:30] Zolpidem Tartrate [Ambien 5MG (*)] 5 mg PO HS PRN 11/08/17 [Last Taken 11/07/17] clonazePAM [Klonopin (*)] 0.5 mg PO TID PRN 11/08/17 [Last Taken 11/07/17] Soma 05/09/18 [Last Taken Unknown] - Past Medical History Additional medical history: Hypertension. diastolic CHF. COPD. TIGIST on nightly O2. GERD. Morbid obesity. chronic pain syndrome on chronic methadone therapy - Surgical History Additional surgical history: tonsillectomy. hysterectomy. cholecystectomy. bunionectomy - Family History Positive for: non-pertinent - Social History Smoking Status: Current every day smoker Additional social history: Patient currently lives with her , child and mother. Review of Systems Review of Systems: 10pt was reviewed & negative except for what was stated in HPI & below Physical Exam Temp Pulse Resp BP Pulse Ox 36.5 C 75 17 146/64 H 92 06/19/18 15:41 06/19/18 19:35 06/19/18 19:35 06/19/18 19:35 06/19/18 19:35 Physical Exam: General: NAD, alert and oriented HEENT: MMM, EOMI NECK: No thyromegaly, no JVD CV: RRR, no murmurs LUNGS: CTA b/l ABD: Soft, ND, NT, +BS EXT: Trace edema Labs: WBC 9.46 10^3/uL (3.80-9.50) 06/19/18 14:16 RBC 4.36 10^6/uL (4.18-5.33) 06/19/18 14:16 Hgb 13.6 g/dL (12.6-16.3) 06/19/18 14:16 Hct 39.4 % (38.0-47.0) 06/19/18 14:16 MCV 90.4 fL (81.5-99.8) 06/19/18 14:16 MCH 31.2 pg (27.9-34.1) 06/19/18 14:16 MCHC 34.5 g/dL (32.4-36.7) 06/19/18 14:16 RDW 13.4 % (11.5-15.2) 06/19/18 14:16 Plt Count 344 10^3/uL (150-400) 06/19/18 14:16 MPV 10.4 fL (8.7-11.7) 06/19/18 14:16 Neut % (Auto) 53.1 % (39.3-74.2) 06/19/18 14:16 Lymph % (Auto) 34.0 % (15.0-45.0) 06/19/18 14:16 [place] % (Auto) 7.3 % (4.5-13.0) 06/19/18 14:16 Eos % (Auto) 4.3 % (0.6-7.6) 06/19/18 14:16 Baso % (Auto) 1.0 % (0.3-1.7) 06/19/18 14:16 Nucleat RBC Rel Count 0.0 % (0.0-0.2) 06/19/18 14:16 Absolute Neuts (auto) 5.02 10^3/uL (1.70-6.50) 06/19/18 14:16 Absolute Lymphs (auto) 3.22 10^3/uL (1.00-3.00) H 06/19/18 14:16 Absolute Monos (auto) 0.69 10^3/uL (0.30-0.80) 06/19/18 14:16 Absolute Eos (auto) 0.41 10^3/uL (0.03-0.40) H 06/19/18 14:16 Absolute Basos (auto) 0.09 10^3/uL (0.02-0.10) 06/19/18 14:16 Absolute Nucleated RBC 0.00 10^3/uL (0-0.01) 06/19/18 14:16 Immature Gran % 0.3 % (0.0-1.1) 06/19/18 14:16 Immature Gran # 0.03 10^3/uL (0.00-0.10) 06/19/18 14:16 Sodium 137 mEq/L (135-145) 06/19/18 14:16 Potassium 3.9 mEq/L (3.5-5.2) 06/19/18 14:16 Chloride 103 mEq/L (97-110) 06/19/18 14:16 Carbon Dioxide 23 mEq/l (22-31) 06/19/18 14:16 Anion Gap 11 mEq/L (6-14) 06/19/18 14:16 BUN 18 mg/dL (7-23) 06/19/18 14:16 Creatinine 0.5 mg/dL (0.6-1.0) L 06/19/18 14:16 Estimated GFR > 60 06/19/18 14:16 Glucose 142 mg/dL (70-100) H 06/19/18 14:16 POC Glucose 178 mg/dL (70-100) H 06/19/18 16:41 Hemoglobin A1c 6.8 % (4.0-6.0) H 06/19/18 14:16 Estim Average Glucose 148 mg/dL (68-126) H 06/19/18 14:16 Calcium 9.6 mg/dL (8.5-10.4) 06/19/18 14:16 POC Troponin I 0.03 ng/mL (0.00-0.08) 06/19/18 14:22 Troponin I 0.025 ng/mL (0.000-0.034) 06/19/18 14:16 Imaging: CXR results reviewed. Assessment/Plan: The patient is a 48 y/o F with a known h/o severe HTN who presented with hypertensive emergency from her sustainable agriculture specialist's office today and is improved on cardene gtt. She admits that she has not seen cardiology since a hospitalization last October and likely would benefit from a new cardiac work-up ( echo, etc) given recent worsening of HTN and ongoing nicotine abuse. Hypertensive emergency -goal SBP 140-160 by am -may resume home meds tomorrow am -hold diuretics for now -consider echo -if neuro symptoms recur, would consider head imaging for PRES, etc. -low sodium diet Nicotine abuse -offered patch, patient refused CKD -h/o DEANN -Cr at baseline 0.5mg/dL -will check UA for degree of proteinuria TIGIST -brought home CPAP Consult appreciated, will continue to monitor. Please contact if ?'s. #. Alen Pack DO #[phone]
--- NOTE | 2018-06-19 21:14 | PDMN ---
Medical Necessity Medical necessity: Pt meets IP criteria as of 06/19/2018 per and SHAYY M-197 ( Hypertension); est los > 2mn for ongoing tx and evaluation of hypertensive emergency; requiring cardene gtt, nephrology consultation and monitoring; comorbid CHF, COPD, heroin use, and brain lesions.
[2018-06-19] MEDS: OXcarbazepine 300 MG TAB PO SCH (21:36)
[2018-06-19] MEDS: GABAPENTIN 300 MG CAP PO SCH (21:36)
[2018-06-19] MEDS: PANTOPRAZOLE SODIUM 40 MG TAB PO SCH (21:37)
[2018-06-19] MEDS: FAMOTIDINE 20 MG TAB PO SCH (21:37)
[2018-06-19] MEDS: ZOLPIDEM TARTRATE 5 MG TAB PO PRN (23:11)
[2018-06-20] MEDS: METHADONE HCL 10 MG/ML UDSYR PO SCH ×2 (05:46→14:50)
[2018-06-20] MEDS: CARISOPRODOL 350 MG TAB PO PRN ×3 (05:57→21:14)
[2018-06-20] MEDS: clonazePAM 0.5 MG TAB PO PRN ×2 (05:57→14:54)
[2018-06-20 06:21] LABS: PLATELET COUNT 302 10^3/uL (150-400)
[2018-06-20] MEDS: INSULIN LISPRO 100 UNIT/ML SC SCH ×3 (07:48→18:51)
[2018-06-20] MEDS: GABAPENTIN 300 MG CAP PO SCH ×2 (07:52→21:18)
[2018-06-20] MEDS: PANTOPRAZOLE SODIUM 40 MG TAB PO SCH ×2 (07:52→21:17)
[2018-06-20] MEDS: OXcarbazepine 300 MG TAB PO SCH ×2 (07:52→21:16)
[2018-06-20] MEDS: FAMOTIDINE 20 MG TAB PO SCH ×2 (07:52→21:17)
--- NOTE | 2018-06-20 08:18 | HOSPPROG ---
Hospitalist Progress Note Assessment/Plan: #Acute hypertensive emergency (Acute) -suspect missed dose home meds -considered Clonidine patch, but she says falls off -Dose Clonidine now, restart Norvasc. If BP still up, add another 0.2mg Clonidine. Can then add back Hydralazine, Lisinopril -discussed with Dr. Gasca #Compensated CHF: euvolemic currently #Indeterminate trop with chest pain: likely demand with hypertensive emergency -no WMA on TTE. Shows diastolic dysfunction, which is not surprising with uncontrolled BP #Nausea, likely due to HTN -anti emetics #Chronic hypoxemic resp failure: COPD, TIGIST -not compliant with CPAP #Chronic pain syndrome: methadone #Tobacco Abuse d/o: counseled on cessation #Anxiety #Diet: regular #DVT ppx: Lovenox #Disp: cont inpatient admission for BP monitoring. Critical care time spent > 35 min evaluating pt, reviewing meds and d/w Dr. Gasca Subjective: "my blood pressure goes up when laying still" Objective: Vital Signs Temp Pulse Resp BP Pulse Ox 36.9 C 59 L 15 134/58 H 95 06/20/18 07:20 06/20/18 07:20 06/20/18 07:20 06/20/18 07:20 06/20/18 07:20 Laboratory Results 06/20/18 06:05 06/20/18 06:05 06/19/18 06/20/18 06/21/18 05:59 05:59 05:59 Intake Total 452 Output Total 1250 Balance -798 - Time Spent With Patient Time Spent with Patient: greater than 35 minutes Time Spent with Patient: Greater than 35 minutes spent on this patients care, greater than 50% of time spent counseling, educating, and coordinating care regarding the above mentioned plan. - Physical Exam Constitutional: no apparent distress, obese Eyes: PERRL Ears, Nose, Mouth, Throat: moist mucous membranes Cardiovascular: regular rate and rhythym, other (S4 present) Respiratory: no respiratory distress, No inspiratory crackles Gastrointestinal: normoactive bowel sounds Genitourinary: no bladder fullness Neurologic: AAOx3, CN II-XII Intact Psychiatric: interacting appropriately ICD10 Worksheet Patient Problems: Problems Problem Status Onset Hypertensive emergency Acute Acute chest pain Acute Bradycardia Acute CHF (congestive heart failure) Acute CHF exacerbation Acute COPD (chronic obstructive pulmonary disease) Acute Chest pain Acute Chest pain at rest Acute Hypertension Acute Hypoxia Acute Knee sprain Acute Migraine Acute Shortness of breath Acute Shortness of breath on exertion Acute Symptomatic bradycardia Acute Syncope and collapse Acute Uncontrolled hypertension Acute
[2018-06-20] MEDS ORDERED: CHLORTHALIDONE 25 MG TAB PO SCH (09:00)
[2018-06-20] MEDS: ACETAMINOPHEN 325 MG TAB PO PRN (09:45)
--- NOTE | 2018-06-20 13:11 | ECHO ---
[email or web address] [address] [address] Main: [phone] Fax: Transthoracic Echocardiogram Name: ANGEL AREVALO MR#: [id number] Study Date: 06/20/2018 Study Time: 09:17 AM Date of : 1970 Age: 48 year(s) Height: 167.6 cm (66 in.) Weight: 106.6 kg (235 lb.) BSA: 2.14 m2 Gender: Female Examination: Echo Indication: HTN Crisis, now nomal HTN Image Quality: Contrast: Requested by: Scottie Wolfe BP: 270 mmHg/105 mmHg Heart Rate: Rhythm: Normal sinus rhythm Indication: HTN Crisis, now nomal HTN Procedure Staff Metal Loader: Henry Langston RDCS Reading Physician: Reynaldo Tsai MD Requesting Provider: Conclusions: Normal size left ventricle. Mild concentric LV hypertrophy. Global hypercontractility of the left ventricle. EF is 81 %. Grade 1 diastolic dysfunction (abnormal relaxation). Normal RV function. The left atrium is mildly dilated. The pulmonary artery pressure is mildly increased. No pericardial effusion. Measurements: Chambers Valvular Assessment AV/MV Valvular Assessment TV/PV Normal Normal Normal Name Value Range Name Value Range Name Value Range Ao Eli (MM): 2.6 cm (2.2 cm-3.7 AV Vmax: 2.24 m/s (1 m/s-1.7 TR Vmax: 2.71 mm/s ( - ) cm) m/s) TR PGmax: 29 mmHg ( - ) IVSd (2D): 1.0 cm (0.6 cm-1.1 AV maxP mmHg ( - ) syst. PAP: 34 mmHg ( - ) cm) LVOT Vmax: 1.42 m/s (0.7 m/s-1.1 PV Vmax: 0.91 m/s (0.6 m/s-0.9 LVDd (2D): 4.6 cm (3.9 cm-5.3 m/s) m/s) cm) MV E Vmax: 0.66 m/s ( - ) PV PGmax: 3 mmHg ( - ) LVDs (2D): 2.3 cm (2.1 cm-4 MV A Vmax: 0.78 m/s ( - ) cm) MV E/A: 0.85 ( - ) LVPWd (2D): 1.2 cm ( - ) LVEF (2D): 81 (>=54 %) Continued Measurements: Chambers Valvular Assessment AV/MV Valvular Assessment TV/PV Name Value Name Value Name Value Patient: ANGEL AREVALO Study Date: 06/20/2018 Page 1 of 2 09:17 AM LADs Lon.8 cm MV E' Septal: 0.04 m/s CVP (est.): 5 mmHg LA Area: 24.3 cm2 MV E/E' Septal: 14.80 LA Volume: 75 ml MV E/E' Lateral: 16.90 LA Volume Index: 35.0 ml/m2 Findings: Left Ventricle: Normal size left ventricle. Mild concentric LV hypertrophy. Global hypercontractility of the left ventricle. EF is 81 %. No regional wall motion abnormality. Grade 1 diastolic dysfunction (abnormal relaxation). Right Ventricle: Normal size right ventricle. No RV hypertrophy. Normal RV function. Left Atrium: The left atrium is mildly dilated. Right Atrium: The right atrium is normal in size. Mitral Valve: The mitral valve is normal in appearance and function. There is no mitral valve regurgitation. No mitral stenosis is present. Aortic Valve: The aortic valve is tri-leaflet and functions normally. There is no significant aortic valve regurgitation. Tricuspid Valve: The tricuspid valve is normal in appearance and function. Trivial tricuspid valve regurgitation. The pulmonary artery pressure is mildly increased. Pulmonic Valve: The pulmonic valve is normal in appearance and function. Aorta: The aorta is normal. Pericardium: No pericardial effusion. Exam Comments: The BP on admission was critically high and now is controlled at 91/72. (No Signature Object) Patient: ANGEL AREVALO Study Date: 06/20/2018 Page 2 of 2 09:17 AM [id number]
--- NOTE | 2018-06-20 16:19 | SOAPPROG ---
SOAP Progress Note Assessment/Plan: Assessment: The patient is a 48 y/o F with a known h/o severe HTN who presented with hypertensive emergency with headache and blurry vision from her media operator's ( Dr. Ware's) office on 06/19. Admission BP in 270's systolic. Patient is on numerous BP meds, including Clonidine 0.3mg TID plus PRN. Per clinical communication in outpatient chart, patient reported that she ran out of the Clonidine on 06/18 even though it had just been filled on 05/31. I suspect rebound hypertension as main etiology for hypertensive emergency. Per Dr. Ware' s clinic note, evaluation for secondary hypertension has been negative. Initially on Nicardipine drip, off since 8pm on 06/19. BP low-normal up until around 3pm on 06/20 --> 180 systolic. Gradually restarting home meds since BP was as low as 111 systolic earlier on the morning of 06/20. Hypertensive emergency -goal SBP 140-160 by am *Given dose of 0.1mg of Clonidine and restarted on home Amlodipine 10mg. If BP still >160 around 5pm, would give another 0.2mg Clonidine. If still elevated at 7pm, would restart Hydralazine, then Lisinopril, then ISMN. --Home meds include Clonidine 0.3mg TID, Hydralazine 100mg TID, Lisinopril 40mg daily, Amlodipine 10mg daily, Chlorthalidone 50mg daily, ISMN 60mg daily *If most meds are restarted and BP at goal by 06/21, would be ok with discharge home -Patient reports that she cannot wear Clonidine patch because it falls off Recommended that patient get the TID pill boxes to make sure that she takes all of her meds --Discussed with patient the risks of stroke if BP were to get high like it was on admission again. Also discussed that could have stroke symptoms of BP were to fall dramatically when brain used to high BP Nicotine abuse -offered patch on admission, patient refused CKD -h/o DEANN -Cr at baseline 0.5mg/dL *proteinuria was increased on recent check but no surprised in setting of SBP in 270's systolic, will recheck in AM TIGIST -brought home CPAP *discussed need to wear CPAP even when napping Consult appreciated, will continue to monitor. My cell phone is if questions overnight I am covering all weekend Discussed with Dr. Jennings, pharmacist, patient, and bedside nurse Subjective: Patient feeling better. Headache and blurry vision resolved. Got up and walked around a little. Reports that she puts PM meds in a bill box and puts the other meds in a bottle. She tries very hard to take all of her meds but doesn't think it would have been impossible to miss some by accident. Pain has been well- controlled recently. Does have menopause-related hot flashes. Objective: Vital Signs Temp Pulse Resp BP Pulse Ox 36.9 C 72 17 163/85 H 94 06/20/18 07:20 06/20/18 16:05 06/20/18 16:05 06/20/18 16:05 06/20/18 16:05 Laboratory Results 06/20/18 06:05 06/20/18 06:05 06/19/18 06/20/18 06/21/18 05:59 05:59 05:59 Intake Total 452 Output Total 1250 Balance -798 General- AAO x 3, well-appearing, overweight Eyes- anicteric sclera, no conjunctival injection HEENT- MMM, no gross oral lesions Pulm- CTAB, breathing comfortably on RA CV- + systolic murmur heard throughout precordium, no LE edema Abd- soft, non-tender, non-distended, + BS Extrem- no cyanosis, clubbing, or edema Psych- pleasant, answers questions appropriately Skin- + tattoos, no rashes or bruising on exposed skin ICD10 Worksheet Patient Problems: Problems Problem Status Onset Hypertensive emergency Acute Acute chest pain Acute Bradycardia Acute CHF (congestive heart failure) Acute CHF exacerbation Acute COPD (chronic obstructive pulmonary disease) Acute Chest pain Acute Chest pain at rest Acute Hypertension Acute Hypoxia Acute Knee sprain Acute Migraine Acute Shortness of breath Acute Shortness of breath on exertion Acute Symptomatic bradycardia Acute Syncope and collapse Acute Uncontrolled hypertension Acute
--- NOTE | 2018-06-20 16:24 | ASMTLACE ---
YE Acuity / Level of Answers: Yes Care: Did the patient have an inpatient admission? Comorbidities - select Answers: Congestive heart failure all that apply Moderate or severe liver or renal disease Opioid dependence / Chronic pain Other Notes: HTN # of Emergency department Answers: 3-4 visits in the last 6 months Social determinants Answers: History of substance abuse (ETOH, street drugs, prescription drugs, etc.) Mental health diagnosis (anxiety, depression, pers onality disorders, etc.) Score: 23 Date Signed: 06/20/2018 04:24 PM Electronically Signed By:NEETA Cooper
--- NOTE | 2018-06-20 16:28 | ASMTCMCOM ---
CM Note CM Note Notes: Pt with numerous co-morbidities, hx heroin use/anxiety/chronic pain in for uncontrolled hypertension. Nephrology consulting. Pt resides with . Pt likely independent, CM to follow pt progress. Date Signed: 06/20/2018 04:28 PM Electronically Signed By:NEETA Cooper
[2018-06-20] MEDS: ZOLPIDEM TARTRATE 5 MG TAB PO PRN (21:15)
[2018-06-21] MEDS: clonazePAM 0.5 MG TAB PO PRN ×3 (05:21→21:13)
[2018-06-21] MEDS: CARISOPRODOL 350 MG TAB PO PRN ×4 (05:21→21:13)
[2018-06-21] MEDS: METHADONE HCL 10 MG/ML UDSYR PO SCH ×2 (05:26→14:36)
[2018-06-21] MEDS: GABAPENTIN 300 MG CAP PO SCH ×2 (07:49→21:12)
[2018-06-21] MEDS: OXcarbazepine 300 MG TAB PO SCH ×2 (07:50→21:16)
[2018-06-21] MEDS: INSULIN LISPRO 100 UNIT/ML SC SCH ×3 (07:50→17:35)
[2018-06-21] MEDS: PANTOPRAZOLE SODIUM 40 MG TAB PO SCH ×2 (07:51→21:12)
[2018-06-21] MEDS: FAMOTIDINE 20 MG TAB PO SCH ×2 (09:01→21:15)
--- NOTE | 2018-06-21 14:30 | HOSPPROG ---
Hospitalist Progress Note Assessment/Plan: #Acute hypertensive emergency (Acute) -discussed case with Dr. Gasca -resume Clonidine TID, Norvasc. If still elevated, readd Hydral 50mg TID. Do not think she needs the multiple meds at home #Compensated CHF: euvolemic currently #Indeterminate trop with chest pain: likely demand with hypertensive emergency -no WMA on TTE. Shows diastolic dysfunction, which is not surprising with uncontrolled BP #Nausea, likely due to HTN -anti emetics #Chronic hypoxemic resp failure: COPD, TIGIST -not compliant with CPAP #Chronic pain syndrome: methadone #Tobacco Abuse d/o: counseled on cessation #Anxiety #Diet: regular #DVT ppx: Lovenox #Disp: cont inpatient admission for BP monitoring. Critical care time spent > 35 min evaluating pt, reviewing meds and d/w Dr. Gasca Subjective: mild COBB this morning Objective: Vital Signs Temp Pulse Resp BP Pulse Ox 36.9 C 89 20 187/86 H 98 06/20/18 07:20 06/21/18 14:20 06/21/18 14:20 06/21/18 14:20 06/21/18 14:20 Laboratory Results 06/20/18 06:05 06/20/18 06:05 06/20/18 06/21/18 06/22/18 05:59 05:59 05:59 Intake Total 452 1200 Output Total 1250 600 Balance -798 1200 -600 - Time Spent With Patient Time Spent with Patient: greater than 35 minutes Time Spent with Patient: Greater than 35 minutes spent on this patients care, greater than 50% of time spent counseling, educating, and coordinating care regarding the above mentioned plan. - Physical Exam Constitutional: obese Eyes: PERRL Ears, Nose, Mouth, Throat: moist mucous membranes Cardiovascular: regular rate and rhythym, No edema Respiratory: no respiratory distress Gastrointestinal: normoactive bowel sounds Genitourinary: no bladder fullness Skin: warm Musculoskeletal: full muscle strength Neurologic: AAOx3 Psychiatric: interacting appropriately ICD10 Worksheet Patient Problems: Problems Problem Status Onset Hypertensive emergency Acute Acute chest pain Acute Bradycardia Acute CHF (congestive heart failure) Acute CHF exacerbation Acute COPD (chronic obstructive pulmonary disease) Acute Chest pain Acute Chest pain at rest Acute Hypertension Acute Hypoxia Acute Knee sprain Acute Migraine Acute Shortness of breath Acute Shortness of breath on exertion Acute Symptomatic bradycardia Acute Syncope and collapse Acute Uncontrolled hypertension Acute
[2018-06-21] MEDS: LISINOPRIL 40 MG TAB PO SCH (19:59)
[2018-06-21] MEDS: ZOLPIDEM TARTRATE 5 MG TAB PO PRN (21:22)
--- NOTE | 2018-06-21 23:22 | SOAPPROG ---
SOAP Progress Note Assessment/Plan: Assessment: The patient is a 48 y/o F with a known h/o severe HTN who presented with hypertensive emergency with headache and blurry vision from her special procedures technologist's ( Dr. Ware's) office on 06/19. Admission BP in 270's systolic. Patient is on numerous BP meds, including Clonidine 0.3mg TID plus PRN. Per clinical communication in outpatient chart, patient reported that she ran out of the Clonidine on 06/18 even though it had just been filled on 05/31. I suspect rebound hypertension as main etiology for hypertensive emergency. Per Dr. Ware' s clinic note, evaluation for secondary hypertension has been negative. Initially on Nicardipine drip, off since 8pm on 06/19. BP low-normal up until around 3pm on 06/20 --> 180 systolic. Gradually restarting home meds since BP was as low as 111 systolic earlier on the morning of 06/20. Hypertensive emergency -goal SBP 140-160 by am *Gradually adding back home meds, now back on Amlodipine 10mg, Clonidine 0.3mg TID, Lisinopril 40mg daily, and Hydralazine 50mg TID (home dose is 100mg TID). -Goal BP 120-160 at this point. It seems like she is going to continue to have a lot of fluctuation. *Ok with discharge home tomorrow. If BP elevated overnight, would increase Hydralazine back to home 100mg TID. Would give instructions to check SBP 3 times a day for now at home and record. If consistently running high would increase back to 100mg TID hydralazine (if not done prior to discharge), if still running high, restart home ISMN, then Chlorthalidone -Patient reports that she cannot wear Clonidine patch because it falls off Recommended that patient get the TID pill boxes to make sure that she takes all of her meds --Discussed with patient the risks of stroke if BP were to get high like it was on admission again. Also discussed that could have stroke symptoms of BP were to fall dramatically when brain used to high BP Nicotine abuse -offered patch on admission, patient refused CKD -h/o DEANN -Cr at baseline 0.5mg/dL *proteinuria was increased on recent check but no surprised in setting of SBP in 270's systolic *Recheck UA and spot protein/Cr ratio TIGIST -brought home CPAP *discussed need to wear CPAP even when napping Consult appreciated, will continue to monitor. My cell phone is if questions overnight I am covering all weekend Discussed with Dr. Jennings Subjective: Reports some headache and generalized weakness today. No acute events. BP still up-and-down. Gradually have been restarting her home meds. Objective: Vital Signs Temp Pulse Resp BP Pulse Ox 37.1 C 63 18 178/73 H 95 06/21/18 16:00 06/21/18 18:16 06/21/18 18:16 06/21/18 21:12 06/21/18 16:00 Laboratory Results 06/20/18 06:05 06/21/18 14:44 06/20/18 06/21/18 06/22/18 05:59 05:59 05:59 Intake Total 452 1200 600 Output Total 1250 2000 Balance -798 1200 -1400 General- AAO x 3, well-appearing, overweight, sleeping comfortably with CPAP in place Eyes- anicteric sclera, no conjunctival injection HEENT- MMM, no gross oral lesions Pulm- CTAB, breathing comfortably on CPAP CV- + systolic murmur heard throughout precordium, no LE edema Abd- soft, non-tender, non-distended, + BS Extrem- no cyanosis, clubbing, or edema Psych- pleasant, answers questions appropriately Skin- + tattoos, no rashes or bruising on exposed skin ICD10 Worksheet Patient Problems: Problems Problem Status Onset Hypertensive emergency Acute Acute chest pain Acute Bradycardia Acute CHF (congestive heart failure) Acute CHF exacerbation Acute COPD (chronic obstructive pulmonary disease) Acute Chest pain Acute Chest pain at rest Acute Hypertension Acute Hypoxia Acute Knee sprain Acute Migraine Acute Shortness of breath Acute Shortness of breath on exertion Acute Symptomatic bradycardia Acute Syncope and collapse Acute Uncontrolled hypertension Acute
[2018-06-22] MEDS: CARISOPRODOL 350 MG TAB PO PRN ×3 (05:49→15:08)
[2018-06-22] MEDS: METHADONE HCL 10 MG/ML UDSYR PO SCH ×2 (05:49→15:25)
[2018-06-22] MEDS: clonazePAM 0.5 MG TAB PO PRN ×3 (05:49→15:08)
[2018-06-22] MEDS: INSULIN LISPRO 100 UNIT/ML SC SCH ×2 (07:48→11:23)
[2018-06-22] MEDS: PANTOPRAZOLE SODIUM 40 MG TAB PO SCH (07:55)
[2018-06-22] MEDS: FAMOTIDINE 20 MG TAB PO SCH (07:55)
[2018-06-22] MEDS: OXcarbazepine 300 MG TAB PO SCH (07:56)
[2018-06-22] MEDS: LISINOPRIL 40 MG TAB PO SCH (07:56)
[2018-06-22] MEDS: GABAPENTIN 300 MG CAP PO SCH (07:56)
--- NOTE | 2018-06-22 14:08 | ASDISCHSUM ---
Discharge Information Plan Status:Home with No Needs Medically Cleared to Leave:06/21/2018 Discharge Date:06/21/2018 CM D/C Disposition:Home, Routine, Self-Care ADT D/C Disposition:Home, Routine, Self-Care Projected Discharge Date:06/22/2018 03:00 PM Transportation at D/C:Family Discharge Delay Reason: Follow-Up Date:06/22/2018 03:00 PM Discharge Slot:2 - 12:01 pm - 18:00 pm Final Diagnosis:HTN ER Placement Information Patient Contact Information Contact Name:LEONIDES Relationship: Address:[address] [address] Work Phone: [facility]:[place] Alternate Phone: [facility]/Zip Code:[place] [address] Email: Financial Information Financial Class:Medicaid Primary Plan Desc:[place] Primary Plan Number:[id number] Secondary Plan Desc: Secondary Plan Number: Assessment Information LACE LACE Acuity / Level of Answers: Yes Care: Did the patient have an inpatient admission? Comorbidities - select Answers: Congestive heart failure all that apply Moderate or severe liver or renal disease Opioid dependence / Chronic pain Other Notes: HTN # of Emergency department Answers: 3-4 visits in the last 6 months Social determinants Answers: History of substance abuse (ETOH, street drugs, prescription drugs, etc.) Mental health diagnosis (anxiety, depression, pers onality disorders, etc.) Score: 23 Date Signed: 06/20/2018 04:24 PM Electronically Signed By:NEETA Cooper [facility] CM Progress Note CM Note CM Note Notes: Pt with numerous co-morbidities, hx heroin use/anxiety/chronic pain in for uncontrolled hypertension. Nephrology consulting. Pt resides with . Pt likely independent, CM to follow pt progress. Date Signed: 06/20/2018 04:28 PM Electronically Signed By:NEETA Cooper Case Management Discharge Plan Note Case Management Discharge Discharge Order Complete? Answers: Yes Patient to Obtain Answers: via Family Medications Transportation Arranged Answers: Family/Friends Transport will Pick (Date 06/22/2018 03:00 PM & Time) Family Notified Answers: Yes Notes: Family to transport Discharge Comments Notes: Patient has been discharged home with . No discharge needs. Date Signed: 06/22/2018 02:07 PM Electronically Signed By:Makayla Bermudez LCSW Intervention Information
--- NOTE | 2018-06-22 14:34 | GDS ---
DISCHARGE DIAGNOSES: 1. Hypertensive urgency. 2. Chest pain. 3. Indeterminate troponin. 4. Compensated systolic heart failure. 5. Nausea. 6. Chronic hypoxic respiratory failure. 7. Chronic obstructive pulmonary disease. 8. Obstructive sleep apnea on CPAP. 9. Chronic pain syndrome on chronic methadone. 10. Tobacco abuse. 11. Anxiety. 12. Type 2 diabetes. CONSULTATIONS: Renal. HISTORY OF PRESENT ILLNESS: A 48-year-old female with CKD, hypertension, TIGIST, COPD, presents with chest pain, dyspnea, nausea. She has had a vague left- sided chest pain and some dyspnea over the last couple of weeks. She reports being compliant with medications to some providers and reports missing some doses to others. In the ER, blood pressure elevated to systolic blood pressure greater than 200. She was started on a Cardene drip and transferred to the ICU. HOSPITAL COURSE BY PROBLEM: 1. Hypertensive urgency: Started on a Cardene drip with improvement. Nephrology consulted. She is on at least 6 agents as an outpatient. Suspect that she missed some of her clonidine doses and was having rebound hypertension. Her home regimen will now be Norvasc 10 mg daily, clonidine 0.3 mg t.i.d., 50 mg hydralazine t.i.d., and lisinopril 40 mg. Stop her diuretic and nifedipine. Advised to check BP TID; if systolic is persistently >160, increase hydralazine to 100 mg. 2. Compensated systolic heart failure. 3. Atypical chest pain: due to demand with hypertensive urgency. Echocardiogram negative for wall motion abnormalities. 4. COPD: No evidence of exacerbation. 5. Chronic hypoxemic respiratory failure: Secondary to TIGIST. She is not compliant with her CPAP. 6. Chronic pain syndrome: Resume methadone. 7. Tobacco abuse: She was counseled on cessation. 8. Anxiety: Home medications. 9. Type 2 diabetes: Resume metformin. 10. GERD: PPI. DISPOSITION: Patient is stable for discharge home. MEDICATIONS: 1. Hydralazine decreased to 50 mg t.i.d. 2. Discontinue medication: Chlorthalidone and nifedipine. FOLLOWUP: 1. Her PCP. 2. Dr. Ware with Renal. PHYSICAL EXAMINATION: VITAL SIGNS: Today, temperature afebrile. Blood pressure is 110 to 130/50s to 70s, heart rate in the 50s, respirations to 14, 95 % on room air. GENERAL: She is obese in no acute distress. HEENT: PERRLA. Moist mucous membranes. CV: Regular rate and rhythm. LUNGS: Clear. ABDOMEN : Soft, nontender, nondistended with positive bowel sounds. : No Carrera. MUSCULOSKELETAL: 5/5 upper and lower extremity strength. NEURO: 2 through 12 intact. PSYCH: Alert and oriented x3. Time spent on discharge greater than 30 minutes at bedside with patient, counseling on medications and a followup plan with her seismograph shooter. /[id number]/MODL MTDD
[2018-06-22 15:08] VITALS: BP 161/89
== END 2018-06-22 15:35 | disposition home or self-care (01) | DRG 194 ==
LOC: F2N 15:41
PROVIDERS: ADMIT Family Medicine; ATTEND Internal Medicine
DX: I11.0 Hypertensive heart disease with heart failure (principal); I50.32 Chronic diastolic (congestive) heart failure; I16.1 Hypertensive emergency; R07.9 Chest pain, unspecified; J44.9 Chronic obstructive pulmonary disease, unspecified; F17.210 Nicotine dependence, cigarettes, uncomplicated; J96.11 Chronic respiratory failure with hypoxia; Z99.81 Dependence on supplemental oxygen; G47.33 Obstructive sleep apnea (adult) (pediatric); G89.29 Other chronic pain; Z79.891 Long term (current) use of opiate analgesic; E66.01 Morbid (severe) obesity due to excess calories; Z68.37 Body mass index [BMI] 37.0-37.9, adult
CPT/HCPCS: 84484-ER; 96365; J1815

== ENCOUNTER 2018-07-13 15:46 | Observation (INO) | payer MEDICAID ==
[2018-07-13] MEDS ORDERED: NS 1,000 ML IV ONE (16:50)
[2018-07-13] MEDS ORDERED: methylPREDNISolone SOD SUCC 125 MG/2 ML VIAL IVP ONE (16:50)
[2018-07-13] MEDS ORDERED: ALBUTEROL 3 ML DEYVIAL IH ONE ×2 (16:50→18:14)
[2018-07-13] MEDS ORDERED: IPRATROPIUM/ALBUTEROL 3 ML DEYVIAL IH ONE (16:50)
[2018-07-13 17:25] LABS: PLATELET COUNT 289 10^3/uL (150-400)
--- NOTE | 2018-07-13 18:41 | EDPHY ---
H & P Stated Complaint: HX COPD/COUGH CONGESTION/FLU NEGATIVE Time Seen by Provider: 07/13/18 16:10 HPI/ROS: CHIEF COMPLAINT: Worsening shortness of breath HISTORY OF PRESENT ILLNESS: This is a 48-year-old female with history of COPD, CHF, severe hypertension, on methadone, who presents reporting that she developed upper respiratory complaints about a week ago. The patient reported sore throat, nasal congestion, and cough. She had a fever to 102. After several days of symptoms she was seen by her primary care physician who noted that she was wheezy. She had a negative flu swab was placed on steroids. Symptoms continued for the following week and she was seen again by a physician 2 days ago. At that time she continued to have cough, be wheezy, and was given Mucinex. Patient reports that her symptoms are not improving and that she now is also having significant facial pain and sinus congestion, especially on the left. She has a pulse oximeter at home and notes that she has had sats as low as 72%. She is not normally wear home O2 but she does have oxygen with a CPAP machine. No chest pain, vomiting, or diarrhea. REVIEW OF SYSTEMS: A comprehensive 10 system review of systems was reviewed and is otherwise negative aside from elements mentioned in the history of present illness and medical decision making. PAST MEDICAL HISTORY: COPD, CHF, methadone dependency, hypertension. SOCIAL HISTORY: Nonsmoker, no alcohol, no marijuana. VITAL SIGNS Reviewed by me. 233/104, respiratory rate 22, O2 sat 91% on room air, the heart rate 81. GENERAL: Overweight, tachypneic, speaking in short sentences. HEENT: Atraumatic. Faint erythema and swelling over the left cheek and around the left eye. Eyes: No icterus, conjunctival injection with slight discharged on the left. Mouth: moist mucous membranes. Poor dentition throughout, no obvious abscess, no tonsillar enlargement. Neck: supple with no adenopathy. LUNGS: Wheezes throughout, no rhonchi auscultated. CARDIAC: Regular rate and rhythm, slightly distant, no rubs murmurs or gallops. ABDOMEN: Soft, nontender, nondistended, bowel sounds normal. BACK: No CVA tenderness. EXTREMITIES: No trauma. No edema. Range of motion is normal throughout. NEURO: Alert and oriented, grossly nonfocal. SKIN: Warm and dry, no rash. PSYCHIATRIC: Normal mentation, no agitation. - Personal History LMP (Females 10-55): Hysterectomy Current Tetanus/Diphtheria Vaccine: Yes Tetanus Vaccine Date: 2011 - Medical/Surgical History Hx Asthma: No Hx Chronic Respiratory Disease: Yes Hx Diabetes: Yes Hx Cardiac Disease: Yes Hx Renal Disease: No Hx Cirrhosis: No Hx Alcoholism: No Hx HIV/AIDS: No Hx Splenectomy or Spleen Trauma: No Other PMH: COPD, CHF, chronic O2 use, brain lesions, HTN, heroin use, chronic pain, james, migraines, sleep apnea, Hysterectomy;MRSA 5-6 years ago, degenerative disc disease - Social History Smoking Status: Current every day smoker Constitutional: Initial Vital Signs Temperature (C) 36.9 C 07/13/18 15:51 Heart Rate 81 07/13/18 15:51 Respiratory Rate 22 H 07/13/18 15:51 Blood Pressure 233/101 H 07/13/18 15:51 O2 Sat (%) 91 L 07/13/18 15:51 O2 Delivery Mode Nasal Cannula O2 (L/minute) 2 Allergies/Adverse Reactions: Sulfa (Sulfonamide Antibiotics) Allergy (Severe, Verified 07/13/18 15:50) CAN'T BREATHE metoclopramide HCl [From Reglan] Allergy (Intermediate, Verified 07/13/18 15:50) jaw clenched up tramadol HCl [From Ultram] Allergy (Unknown, Verified 07/13/18 15:50) TROUBLE BREATHING,HIVES amoxicillin trihydrate [From Augmentin] Allergy (Verified 07/13/18 15:50) potassium clavulanate [From Augmentin] Allergy (Verified 07/13/18 15:50) propranolol HCl [From Inderal] Allergy (Verified 07/13/18 15:50) Hives Home Medications: Medication Instructions Recorded amLODIPine BESYLATE [Norvasc 10 mg 10 mg PO DAILY 10/03/15 (*)] OXcarbazepine [Trileptal 300mg (*)] 600 mg PO DAILY 10/06/15 OXcarbazepine [Trileptal 300mg (*)] 900 mg PO HS 10/06/15 Albuterol [Proventil Inhaler HFA 1 - 2 puffs IH DAILY PRN 10/05/16 (*)] clonIDINE [Catapres (*)] 0.3 mg PO TID 10/05/16 Methadone HCl [Dolophine Intensol 224 mg PO BID@0530,1500 #0 11/08/17 10 mg/ml (*)] Zolpidem Tartrate [Ambien 5MG (*)] 5 mg PO HS PRN 11/08/17 clonazePAM [Klonopin (*)] 0.5 mg PO TID PRN 11/08/17 Gabapentin [Neurontin 300 MG (*)] 600 mg PO BID #120 cap 11/13/17 metFORMIN HCL [Glucophage 500 mg 500 mg PO BIDMEAL #60 tab 11/13/17 (*)] traZODone [traZODone 150MG (*)] 150 mg PO HS #30 tab 11/13/17 Carisoprodol [SOMA] 350 mg PO QID PRN 06/19/18 Pantoprazole Sodium [Protonix 40mg 40 mg PO BID 06/19/18 (*)] Ranitidine HCl [Zantac] 150 mg PO BID 06/19/18 clonIDINE [Catapres (*)] 0.1 mg PO TID PRN 06/19/18 Lisinopril [Zestril 40 mg (*)] 40 mg PO DAILY #0 06/20/18 hydrALAZINE [Apresoline 50 mg (*)] 50 mg PO TID #0 06/22/18 Ondansetron Odt [Zofran Odt 4 mg 8 mg PO Q4 PRN 07/13/18 (*)] Medical Decision Making - Diagnostics EKG Interpretation: 12-LEAD EKG: Please see the full report in [facility]. My interpretation: Sinus rhythm, nonischemic Imaging Results: Imaging Impressions Chest X-Ray 07/13/18 16:36 Impression: 1. Cardiomegaly with pulmonary venous hypertension. Is there any clinical evidence of mitral valve disease? 2. Suspect airways disease. No pneumonia. ED Course/Re-evaluation: 48-year-old female with a history of COPD and congestive heart failure presents with shortness of breath. Her symptoms been present for a little bit over a week. Patient has significant wheezing on examination. She also has signs of sinusitis with pain on the left cheek with discomfort in at the left upper gum line. The evaluation includes: [place] [address], normal lactic acid, chest x-ray with no pneumonia, troponin which is negative. Respiratory pathogen panel is pending at time of this dictation. Patient received DuoNeb x1, albuterol nebs x2. She received Solu-Medrol 125 mg IV. On re-examination, patient continues to be significantly short of breath with diffuse wheezes. Given her history of significant hypoxemia at home, failure to improve despite 3 nebs in the emergency department, and worsening symptoms despite outpatient course of steroids decision was made to admit the patient to the hospital. Respiratory pathogen panel is pending time of this dictation. Patient did received 1 g of ceftriaxone. Differential Diagnosis: Differential diagnosis for the patient's shortness of breath was considered including but not limited to pulmonary infectious processes, COPD exacerbation, pulmonary emboli, pulmonary edema, congestive heart failure, and cardiac causes. Consult/Admit Bed Type: Dr. Lindo, med surg - Data Points Laboratory Results: Laboratory Results 07/13/18 17:00 07/13/18 17:05 07/13/18 07/13/18 07/13/18 17:05 17:00 17:00 WBC 12.02 10^3/uL H 10^3/uL (3.80-9.50) RBC 3.73 10^6/uL L 10^6/uL (4.18-5.33) Hgb 11.2 g/dL L g/dL (12.6-16.3) Hct 33.8 % L % (38.0-47.0) MCV 90.6 fL fL (81.5-99.8) MCH 30.0 pg pg (27.9-34.1) MCHC 33.1 g/dL g/dL (32.4-36.7) RDW 13.6 % % (11.5-15.2) Plt Count 289 10^3/uL 10^3/uL (150-400) MPV 10.4 fL fL (8.7-11.7) Neut % (Auto) 66.3 % % (39.3-74.2) Lymph % (Auto) 23.7 % % (15.0-45.0) [place] % (Auto) 6.0 % % (4.5-13.0) Eos % (Auto) 2.7 % % (0.6-7.6) Baso % (Auto) 0.6 % % (0.3-1.7) Nucleat RBC Rel Count 0.0 % % (0.0-0.2) Absolute Neuts (auto) 7.97 10^3/uL H 10^3/uL (1.70-6.50) Absolute Lymphs (auto) 2.85 10^3/uL 10^3/uL (1.00-3.00) Absolute Monos (auto) 0.72 10^3/uL 10^3/uL (0.30-0.80) Absolute Eos (auto) 0.32 10^3/uL 10^3/uL (0.03-0.40) Absolute Basos (auto) 0.07 10^3/uL 10^3/uL (0.02-0.10) Absolute Nucleated RBC 0.00 10^3/uL 10^3/uL (0-0.01) Immature Gran % 0.7 % % (0.0-1.1) Immature Gran # 0.09 10^3/uL 10^3/uL (0.00-0.10) VBG Lactic Acid Sodium 136 mEq/L mEq/L (135-145) Potassium 4.3 mEq/L mEq/L (3.5-5.2) Chloride 102 mEq/L mEq/L (97-110) Carbon Dioxide 25 mEq/l mEq/l (22-31) Anion Gap 9 mEq/L mEq/L (6-14) BUN 21 mg/dL mg/dL (7-23) Creatinine 0.5 mg/dL L mg/dL (0.6-1.0) Estimated GFR > 60 Glucose 185 mg/dL H mg/dL (70-100) Calcium 8.9 mg/dL mg/dL (8.5-10.4) Troponin I 0.012 ng/mL ng/mL (0.000-0.034) NT-Pro-B Natriuret Pep Pending 07/13/18 17:00 WBC RBC Hgb Hct MCV MCH MCHC RDW Plt Count MPV Neut % (Auto) Lymph % (Auto) [place] % (Auto) Eos % (Auto) Baso % (Auto) Nucleat RBC Rel Count Absolute Neuts (auto) Absolute Lymphs (auto) Absolute Monos (auto) Absolute Eos (auto) Absolute Basos (auto) Absolute Nucleated RBC Immature Gran % Immature Gran # VBG Lactic Acid 1.2 mmol/L mmol/L (0.7-2.1) Sodium Potassium Chloride Carbon Dioxide Anion Gap BUN Creatinine Estimated GFR Glucose Calcium Troponin I NT-Pro-B Natriuret Pep Medications Given: Discontinued Medications Albuterol (Proventil Neb) 3 ml IH EDNOW ONE Stop: 07/13/18 16:51 Last Admin: 07/13/18 17:08 Dose: 3 ml Albuterol (Proventil Neb) 3 ml IH EDNOW ONE Stop: 07/13/18 18:15 Last Admin: 07/13/18 18:25 Dose: 3 ml Albuterol/Ipratropium (Duoneb) 3 ml IH EDNOW ONE Stop: 07/13/18 16:51 Last Admin: 07/13/18 17:08 Dose: 3 ml Sodium Chloride (Ns) 1,000 mls @ 0 mls/hr IV ONCE ONE; Wide Open PRN Reason: Protocol Stop: 07/13/18 16:51 Last Admin: 07/13/18 17:07 Dose: 1,000 mls Ceftriaxone Sodium/Dextrose (Rocephin 1 Gm (Premix)) 50 mls @ 100 mls/hr IV EDNOW ONE PRN Reason: Protocol Stop: 07/13/18 18:42 Last Admin: 07/13/18 18:15 Dose: 50 mls Methylprednisolone Sodium Succinate (Solu-Medrol) 125 mg IVP EDNOW ONE Stop: 07/13/18 16:51 Last Admin: 07/13/18 17:07 Dose: 125 mg Departure - Departure Disposition: [facility] Acute
[2018-07-13] MEDS ORDERED: PROMETHAZINE HCL 25 MG/ML INJ IVP PRN (19:27)
[2018-07-13] MEDS ORDERED: hydrALAZINE 20 MG/ML VIAL IVP PRN (19:32)
--- NOTE | 2018-07-13 20:07 | GHP ---
DATE OF ADMISSION: 07/13/2018 CHIEF COMPLAINT: Shortness of breath. HISTORY: The patient is a 48-year-old female who has been suffering from an upper respiratory tract infection for 9 days. She has failed outpatient treatment. She initially presented with sore throat , cough, chest and nasal congestion. She had a fever to 102 at home. She started wheezing. She saw her primary care doctor, Dr. Sandoval, and was prescribed steroids. She just finished a 6-day course of steroids, and she has not improved. At home today, she noted her oxygen saturation to be 72% on room air as measured by her home pulse oximeter. She does not wear home oxygen and typically has sat urations greater than 90% on room air when she is well. She has had some nausea, but no vomiting. PAST MEDICAL HISTORY: 1. COPD. 2. Morbid obesity with obstructive sleep apnea, on CPAP. 3. Malignant hypertension, requiring multiple drugs, followed by Nephrology. Previous workup for se condary causes was negative. 4. Continuous narcotic dependency, on high-dose methadone, previous history of IV drug abuse. 5. Diabetes, type 2. 6. Pulmonary hypertension. PAST SURGICAL HISTORY: Bladder sling, hysterectomy, cholecystectomy. MEDICATIONS: Please see computer record for full details. ALLERGIES: To sulfa and Reglan. SOCIAL HISTORY: She still smokes, but she is in the process of quitting, currently down to 1-3 cigar ettes per day. No alcohol. She lives with her . REVIEW OF SYSTEMS: Complete review of systems obtained. Review of systems negative regarding consti tutional, HEENT, GI, pulmonary, cardiovascular, , hematology, skin, muscular, endocrine, psych, exc ept for positives and negatives as in HPI. FAMILY HISTORY: Reviewed and noncontributory to presenting complaint. PHYSICAL EXAMINATION: GENERAL: Well-developed, well-nourished female, in [id number] respirato ry distress. VITAL SIGNS: Temperature is 36.9, pulse 65, blood pressure 233/101. Initially on arri iman, she was 91% on room air, but she has since desaturated since starting oxygen therapy. Currently 90% on 2 L. Respiratory rate in the emergency room was 22. EYES: Normal conjunctivae. Pupils huy ct to light. ENT: Normal ears and nose. Hearing intact. Normal teeth. Oropharynx moist. NECK: Trachea midline. No thyromegaly. CHEST: Increased work of breathing. Using accessory muscles and dyspnea with a couple of words. LUNGS: Have extensive bilateral wheezing and rhonchi. CARDIOVASCUL AR SYSTEM: Regular rhythm. No murmur. No lower extremity edema. ABDOMEN: Soft, nontender. No he patosplenomegaly. SKIN: Warm, dry, intact. No rash. MUSCULOSKELETAL: No cyanosis or clubbing. S trength 5/5 upper and lower extremities. NEUROLOGIC: Cranial nerves intact. Normal sensation to li ght touch. PSYCH: Alert and oriented x3. Normal affect. Normal judgment and insight. Normal luis fernando ry. LABS: White count 12.02, hematocrit 33.8, platelets 289. Sodium 136, potassium 4.3, chloride 102, b icarb 25, BUN 21, creatinine 0.5, glucose 185. Troponins negative. Lactate is 1.2. EKG viewed by me. My personal interpretation: Normal sinus rhythm, left atrial enlargement, LVH wit h early repolarization. Chest x-ray shows cardiomegaly, but no infiltrate. ASSESSMENT AND PLAN: 1. Chronic obstructive pulmonary disease exacerbation. We will continue intravenous steroids, nebul izers, and add antibiotics. I will use doxycycline as I am concerned for QT prolongation with either azithromycin or Levaquin in conjunction with her high-dose methadone. Respiratory PCR is pending. She has already failed a course of outpatient oral prednisone, so I think she would benefit from intr avenous therapy. 2. Acute respiratory failure. 72% on room air noted, now with increased work of breathing, unable t o speak in full sentences, using accessory muscles with 90% saturations on 2 liters. We will consult Respiratory Therapy. 3. Malignant hypertension. Blood pressure on presentation 233/101. She has a history of difficult- to-control hypertension. She follows with Nephrology. Workup for secondary causes has been negative in the past. Will resume her home medications and can use additional intravenous hydralazine if nee ded for extreme blood pressures. 4. Continuous narcotic dependency. She is on very high-dose methadone, which I will continue. 5. Morbid obesity with obstructive sleep apnea. Continue continuous positive airway [facility] at [facility]. CODE STATUS: Full. ADMISSION STATUS: Will admit to Observation and reevaluate tomorrow regarding ongoing need for hospi talization. DVT PROPHYLAXIS: She is high risk. Will place her on subcu Lovenox. /[id number]/MODL
[2018-07-13] MEDS: GABAPENTIN 300 MG CAP PO SCH (20:13)
[2018-07-13] MEDS: PANTOPRAZOLE SODIUM 40 MG TAB PO SCH (20:13)
[2018-07-13] MEDS: FAMOTIDINE 20 MG TAB PO SCH (20:13)
[2018-07-13] MEDS: DOXYCYCLINE HYCLATE 100 MG CAP/TAB PO SCH (20:14)
[2018-07-13] MEDS: clonazePAM 0.5 MG TAB PO PRN (20:24)
[2018-07-13] MEDS: CARISOPRODOL 350 MG TAB PO PRN (20:26)
[2018-07-13] MEDS: ZOLPIDEM TARTRATE 5 MG TAB PO PRN (20:26)
[2018-07-13] MEDS: OXcarbazepine 300 MG TAB PO SCH (21:23)
[2018-07-13] MEDS: methylPREDNISolone SOD SUCC 40 MG/ML VIAL IVP SCH (23:12)
[2018-07-13] MEDS: ACETAMINOPHEN 325 MG TAB PO PRN (23:27)
[2018-07-13] MEDS ORDERED: SODIUM CL NASAL 45 ML BTL EACHNARE PRN (23:47)
[2018-07-14] MEDS: IPRATROPIUM/ALBUTEROL 3 ML DEYVIAL IH SCH ×5 (00:27→17:25)
[2018-07-14] MEDS ORDERED: LABETALOL HCL 5 MG/ML 20 ML MDV IVP ONE (01:05)
[2018-07-14] MEDS ORDERED: LABETALOL HCL 200 MG TAB PO ONE (01:21)
[2018-07-14] MEDS: clonazePAM 0.5 MG TAB PO PRN ×3 (03:00→21:58)
[2018-07-14] MEDS: CARISOPRODOL 350 MG TAB PO PRN ×4 (03:00→22:13)
[2018-07-14] MEDS ORDERED: hydrALAZINE 20 MG/ML VIAL IVP ONE (03:08)
[2018-07-14] MEDS ORDERED: LORazepam 2 MG/ML INJ IVP ONE (03:09)
[2018-07-14] MEDS: METHADONE HCL 10 MG/ML UDSYR PO SCH ×2 (03:54→15:25)
[2018-07-14 05:03] LABS: PLATELET COUNT 325 10^3/uL (150-400)
[2018-07-14] MEDS: methylPREDNISolone SOD SUCC 40 MG/ML VIAL IVP SCH ×3 (06:02→21:59)
[2018-07-14] MEDS: ACETAMINOPHEN 325 MG TAB PO PRN (06:07)
[2018-07-14] MEDS: PANTOPRAZOLE SODIUM 40 MG TAB PO SCH ×2 (08:01→21:59)
[2018-07-14] MEDS: LISINOPRIL 40 MG TAB PO SCH (08:02)
[2018-07-14] MEDS: GABAPENTIN 300 MG CAP PO SCH ×2 (08:02→21:59)
[2018-07-14] MEDS: ACET/CAFFEINE/BUTA FIORICET 1 EACH TAB PO PRN ×2 (08:02→21:58)
[2018-07-14] MEDS: metFORMIN HCL 500 MG TAB PO SCH ×2 (08:03→17:58)
[2018-07-14] MEDS: FAMOTIDINE 20 MG TAB PO SCH ×2 (08:03→21:59)
[2018-07-14] MEDS: ENOXAPARIN 40 MG/0.4 ML SYR SC SCH (08:03)
[2018-07-14] MEDS: DOXYCYCLINE HYCLATE 100 MG CAP/TAB PO SCH ×2 (08:03→21:59)
[2018-07-14] MEDS: OXcarbazepine 300 MG TAB PO SCH ×2 (08:08→21:58)
[2018-07-14] MEDS ORDERED: ENOXAPARIN 40 MG/0.4 ML SYR SC SCH (09:00)
--- NOTE | 2018-07-14 15:42 | ASMTCMCOM ---
CM Note CM Note Notes: Patient admitted w acute on chronic COPD exacerbation. Her PMH also includes obesity, continuous narcotic dependency, and DMII. She is being treated w steroids, abx, and O2. She lives with her and is independent in ADLs. PT/OT have deemed her at her functional baseline. No Case Management needs anticipated. Current CM Discharge plan: independent Date Signed: 07/14/2018 03:41 PM Electronically Signed By:Mayra Castellanos RN
--- NOTE | 2018-07-14 17:51 | HOSPPROG ---
Hospitalist Progress Note Assessment/Plan: DIAGNOSES: * acute hypoxemic resp failure * copd exacerbation * RSV infection * Malignant HTN: suspect is being currently aggravated by steroids * obesity hypoventilation syndrome and TIGIST, CPAP at home * chronic pulmonary hypertension * morbid obesity * severe chronic anxiety disorder * diabetes mellitus type 2 PLANS: * continue current resp care * droplet and contact isolation * continue to follow BPs closely * Follow sugars * Increase activity as able The patient had many questions and is fairly anxious about her acute situation. I spent a lot of time with her at the bedside answering questions for her. SUBJECTIVE: Some improvement in dyspnea but still quite short of breath with any activity including walking across room Quite anxious which is her usual OBJECTIVE: vitals: Blood pressures were quite high through the night but through the day have become much improved interaction in the normal range at this time, other vitals stable without fever exam: Fairly anxious obese woman sitting on the edge of her bed Skin warm and dry color good Respirations mildly labored Lungs with very diminished and somewhat coarse breath sounds Heart regular without murmur Abdomen soft nondistended nontender Trace edema of the legs No bleeding or bruising IMAGING: I reviewed the patient's chest x-ray from admission which shows some enlargement of heart particularly right atrial enlargement and possible evidence of pulmonary hypertension looking at the central vessels. No infiltrates no effusions and no pulmonary edema MICRO: + for RSV on resp pcr panel LAB: wbc up to 15, sugar 170, both likely from steroid Objective: Vital Signs Temp Pulse Resp BP Pulse Ox 36.8 C 64 18 146/76 H 93 07/14/18 16:00 07/14/18 17:25 07/14/18 17:25 07/14/18 16:00 07/14/18 17:25 Laboratory Results 07/14/18 04:38 07/13/18 07/14/18 07/15/18 06:59 06:59 06:59 Intake Total 1500 Balance 1500 - Time Spent With Patient Time Spent with Patient: greater than 35 minutes Time Spent with Patient: Greater than 35 minutes spent on this patients care, greater than 50% of time spent counseling, educating, and coordinating care regarding the above mentioned plan. ICD10 Worksheet Patient Problems: Problems Problem Status Onset Acute chest pain Acute Bradycardia Acute CHF (congestive heart failure) Acute CHF exacerbation Acute COPD (chronic obstructive pulmonary disease) Acute Chest pain Acute Chest pain at rest Acute Hypertension Acute Hypertensive emergency Acute Hypoxia Acute Knee sprain Acute Migraine Acute Shortness of breath Acute Shortness of breath on exertion Acute Symptomatic bradycardia Acute Syncope and collapse Acute Uncontrolled hypertension Acute
--- NOTE | 2018-07-14 20:46 | CPEKG ---
Test Reason : OPEN Blood Pressure : / mmHG Vent. Rate : 060 BPM Atrial Rate : 060 BPM P-R Int : 167 ms QRS Dur : 086 ms QT Int : 447 ms P-R-T Axes : 052 049 039 degrees QTc Int : 447 ms Sinus rhythm LAE, consider biatrial enlargement Probable left ventricular hypertrophy ST elev, probable normal early repol pattern Confirmed by Kate Glaser ([id number]) on 07/14/2018 8:46:21 PM Referred By: Confirmed By:Kate Glaser
[2018-07-14] MEDS ORDERED: MELATONIN 3 MG TAB PO SCH (21:00)
[2018-07-14] MEDS: ZOLPIDEM TARTRATE 5 MG TAB PO PRN (21:58)
[2018-07-15] MEDS: IPRATROPIUM/ALBUTEROL 3 ML DEYVIAL IH SCH ×4 (00:10→12:27)
[2018-07-15] MEDS: clonazePAM 0.5 MG TAB PO PRN ×2 (05:14→14:31)
[2018-07-15] MEDS: CARISOPRODOL 350 MG TAB PO PRN ×2 (05:15→14:32)
[2018-07-15] MEDS: methylPREDNISolone SOD SUCC 40 MG/ML VIAL IVP SCH ×2 (05:15→14:32)
[2018-07-15] MEDS: METHADONE HCL 10 MG/ML UDSYR PO SCH ×2 (05:15→14:40)
[2018-07-15] MEDS: GABAPENTIN 300 MG CAP PO SCH (07:32)
[2018-07-15] MEDS: OXcarbazepine 300 MG TAB PO SCH (07:32)
[2018-07-15] MEDS: LISINOPRIL 40 MG TAB PO SCH (07:33)
[2018-07-15] MEDS: metFORMIN HCL 500 MG TAB PO SCH (07:33)
[2018-07-15] MEDS: DOXYCYCLINE HYCLATE 100 MG CAP/TAB PO SCH (07:33)
[2018-07-15] MEDS: PANTOPRAZOLE SODIUM 40 MG TAB PO SCH (07:33)
[2018-07-15] MEDS: ENOXAPARIN 40 MG/0.4 ML SYR SC SCH (07:34)
[2018-07-15] MEDS: FAMOTIDINE 20 MG TAB PO SCH (07:34)
[2018-07-15] MEDS: ACET/CAFFEINE/BUTA FIORICET 1 EACH TAB PO PRN (07:45)
[2018-07-15] MEDS: ACETAMINOPHEN 325 MG TAB PO PRN (07:46)
--- NOTE | 2018-07-15 09:50 | PDDCSUM ---
Discharge Summary Discharge Summary: DISCHARGE DIAGNOSES: * acute hypoxemic respiratory failure with chronic hypoxemic respiratory failure * acute RSV respiratory infection * COPD exacerbation * Chronic malignant hypertension with severe hypertension here * chronic sleep apnea and obesity hypoventilation syndrome * chronic pulmonary hypertension * diabetes mellitus type 2 * morbid obesity HOSPITAL COURSE SUMMARY: This patient with chronic lung disease multiple etiologies chronic respiratory failure came in with cough in significant worsening diff dyspnea with hypoxemia. She is found have an acute RSV infection without pneumonic infiltrates on chest x-ray. The patient was treated with bronchodilators and steroids here. Doxycycline has been added with possibility of bronchopneumonia. She has responded quite well in her breathing has improved significantly. From that standpoint she is able to discharge home at present. She does have chronic hypertension and history of very difficult to control blood pressures with malignant hypertension. Here her blood pressures initially were quite high partly due to anxiety partly due to high-dose steroids given for her respirations. She is at this point with much better blood pressure here in the normal to mild systolic range. There been no signs complications here otherwise. PENDING TEST RESULTS: None MEDICATION CHANGES: Doxycycline for 3 more days 100 twice daily Prednisone 40 mg per day tapering down over 10 days FOLLOW-UP PLAN: With her primary care physician in 10-14 days or sooner p.r.n. Greater than 35 minutes bedside and care coordination time today
[2018-07-15 12:15] VITALS: BP 134/65
--- NOTE | 2018-07-15 15:26 | ASDISCHSUM ---
Discharge Information Plan Status:Home with No Needs Medically Cleared to Leave: Discharge Date:07/15/2018 02:55 PM CM D/C Disposition: ADT D/C Disposition:Home, Routine, Self-Care Projected Discharge Date:07/14/2018 11:00 AM Transportation at D/C: Discharge Delay Reason: Follow-Up Date:07/14/2018 11:00 AM Discharge Slot: Final Diagnosis: Placement Information Referral Type:*Home Health Care Services Referral ID:[id number] Provider Name:[facility] Address 1[address] Address 2: City:[place] Selection Factors: State:[place] Patient Contact Information Contact Name:LEONIDES Relationship: Address:[address] [address] Work Phone: City:[place] Alternate Phone: State/Zip Code:[place] [address] Email: Financial Information Financial Class:Medicaid Primary Plan Desc:MEDICAID HEALTH FIRST BRAIN PICKER Primary Plan Number:[id number] Secondary Plan Desc: Secondary Plan Number: Assessment Information LACE LACE Length of stay for Answers: 3 days current admission Acuity / Level of Answers: No Care: Did the patient have an inpatient admission? Comorbidities - select Answers: Chronic pulmonary disease all that apply Congestive heart failure Diabetes (uncontrolled or controlled) Opioid dependence / Chronic pain Other Notes: HTN # of Emergency department Answers: 3-4 visits in the last 6 months Score: 16 Date Signed: 07/15/2018 03:25 PM Electronically Signed By:NEETA Cooper [facility] CM Progress Note CM Note CM Note Notes: Patient admitted w acute on chronic COPD exacerbation. Her PMH also includes obesity, continuous narcotic dependency, and DMII. She is being treated w steroids, abx, and O2. She lives with her and is independent in ADLs. PT/OT have deemed her at her functional baseline. No Case Management needs anticipated. Current CM Discharge plan: independent Date Signed: 07/14/2018 03:41 PM Electronically Signed By:Mayra Castellanos RN [facility] CM Progress Note CM Note CM Note Notes: Pt medically stable for d/c, no CM d/c needs identified. Date Signed: 07/15/2018 03:25 PM Electronically Signed By:NEETA Cooper Intervention Information
== END 2018-07-15 14:55 | disposition home or self-care (01) ==
LOC: F3N 18:43
PROVIDERS: ADMIT Internal Medicine; ATTEND Internal Medicine
DX: J44.1 Chronic obstructive pulmonary disease with (acute) exacerbation (principal); B97.4 Respiratory syncytial virus as the cause of diseases classified elsewhere; I10 Essential (primary) hypertension; J96.21 Acute and chronic respiratory failure with hypoxia; G47.33 Obstructive sleep apnea (adult) (pediatric); E11.9 Type 2 diabetes mellitus without complications; E66.01 Morbid (severe) obesity due to excess calories; I27.20 Pulmonary hypertension, unspecified; J44.0 Chronic obstructive pulmonary disease with (acute) lower respiratory infection
CPT/HCPCS: 71046; 93005; 96361; 96374; 96375; 97161; 97165; 99285; G0378; J0360; J0696; J1650; J2060; J2550; J2920; J2930; J7613

== ENCOUNTER 2018-11-01 10:23 | Inpatient (IN) | payer MEDICAID ==
--- NOTE | 2018-11-01 10:39 | EDPHY ---
H & P Stated Complaint: SOB, Fluid Retention, HX CHF and COPD Time Seen by Provider: 11/01/18 10:29 HPI/ROS: CHIEF COMPLAINT: Dyspnea, abdominal pain and distension HISTORY OF PRESENT ILLNESS: 48-year-old female multiple comorbidities including diabetes, pulmonary hypertension, obesity, COPD, arrives via private vehicle complaining of worsening dyspnea, worsening abdominal pain and distention for the past several weeks. Denies: Recent cold or flu-like symptoms, headache, fever, chills, nausea, vomiting, diarrhea PRIMARY CARE PROVIDER:Lori REVIEW OF SYSTEMS: 10 systems reviewed and negative with the exception of the elements mentioned in the history of present illness PAST MEDICAL & SURGICAL HISTORY: Chronic pulmonary hypertension. Chronic hypoxemic respiratory failure. Nighttime home oxygen 2 L. COPD. Chronic wound hypertension. Chronic sleep apnea and obesity hypoventilation syndrome. Diabetes type 2. Obesity. SOCIAL HISTORY: Daily tobacco smoking. . PHYSICAL EXAM (Prior to examination, patient consented to physical exam, hands were washed and my usual and customary physical exam procedures followed) 1) GENERAL: obese, alert and oriented. Appears to be in no acute distress. 2) HEAD: Normocephalic, atraumatic 3) HEENT: Pupils equal, round, reactive to light bilaterally. Sclera anicteric. Nasopharynx, oropharynx, clear, no lesions. Moist Mucous membranes. 4) NECK: Full range of motion, no meningeal signs. 5) LUNGS: Clear auscultation bilaterally, no wheezes, no rhonchi, no retractions. No accessory muscle use 6) HEART: Regular rate and rhythm, no murmur, no heave, no gallop. 7) ABDOMEN: distended, tender to palpation epigastrium, no fluid wave negative McBurney's, negative Morgna's, negative Rovsing's, negative peritoneal sign, 8) MUSCULOSKELETAL: Moving all extremities, no focal areas of tenderness, no obvious trauma. No peripheral edema or discoloration. 9) BACK: No CVA tenderness, no midline vertebral tenderness, no fluctuance, no step-off, no obvious trauma, no visual or palpable abnormality. 10) SKIN: No rash, no petechiae. 11) Psychiatric: Patient is oriented X 3, there is no agitation. DIFFERENTIAL DIAGNOSIS: In no particular order, including but not limited to myocardial ischemia, CHF exacerbation, COPD exacerbation, pulmonary embolus, chest wall pain, pleural inflammation and pulmonary infectious causes. - Personal History LMP (Females 10-55): Unknown Current Tetanus Diphtheria and Acellular Pertussis (TDAP): Yes Tetanus Vaccine Date: 2011 - Medical/Surgical History Hx Asthma: No Hx Chronic Respiratory Disease: Yes Hx Diabetes: Yes Hx Cardiac Disease: Yes Hx Renal Disease: No Hx Cirrhosis: No Hx Alcoholism: No Hx HIV/AIDS: No Hx Splenectomy or Spleen Trauma: No Other PMH: COPD, CHF, chronic O2 use, brain lesions, HTN, heroin use, chronic pain, james, migraines, sleep apnea, Hysterectomy;MRSA 5-6 years ago, degenerative disc disease - Social History Smoking Status: Heavy smoker Constitutional: Initial Vital Signs Temperature (C) 36.8 C 11/01/18 10:31 Heart Rate 79 11/01/18 10:31 Respiratory Rate 18 11/01/18 10:31 Blood Pressure 241/117 H 11/01/18 10:31 O2 Sat (%) 91 L 11/01/18 10:31 O2 Delivery Mode Room Air O2 (L/minute) 2 Allergies/Adverse Reactions: Sulfa (Sulfonamide Antibiotics) Allergy (Severe, Verified 07/13/18 15:50) CAN'T BREATHE metoclopramide HCl [From Reglan] Allergy (Intermediate, Verified 07/13/18 15:50) jaw clenched up tramadol HCl [From Ultram] Allergy (Unknown, Verified 07/13/18 15:50) TROUBLE BREATHING,HIVES amoxicillin trihydrate [From Augmentin] Allergy (Verified 07/13/18 15:50) potassium clavulanate [From Augmentin] Allergy (Verified 07/13/18 15:50) propranolol HCl [From Inderal] Allergy (Verified 07/13/18 15:50) Hives Home Medications: Medication Instructions Recorded amLODIPine BESYLATE [Norvasc 10 mg 10 mg PO DAILY 10/03/15 (*)] OXcarbazepine [Trileptal 300mg (*)] 600 mg PO DAILY 10/06/15 OXcarbazepine [Trileptal 300mg (*)] 900 mg PO HS 10/06/15 Albuterol [Proventil Inhaler HFA 2 puffs IH Q4H PRN 10/05/16 (*)] Methadone HCl [Dolophine Intensol 224 mg PO BID@0530,1500 #0 11/08/17 10 mg/ml (*)] Zolpidem Tartrate [Ambien 5MG (*)] 5 mg PO HS PRN 11/08/17 clonazePAM [Klonopin (*)] 0.5 mg PO TID PRN 11/08/17 metFORMIN HCL [Glucophage 500 mg 500 mg PO BIDMEAL #60 tab 11/13/17 (*)] traZODone [traZODone 150MG (*)] 150 mg PO HS #30 tab 11/13/17 Carisoprodol [SOMA] 350 mg PO QID PRN 06/19/18 Pantoprazole Sodium [Protonix 40mg 40 mg PO BID 06/19/18 (*)] Ranitidine HCl [Zantac] 150 mg PO BID 06/19/18 clonIDINE [Catapres (*)] 0.1 mg PO TID PRN 06/19/18 Lisinopril [Zestril 40 mg (*)] 40 mg PO DAILY #0 06/20/18 hydrALAZINE [Apresoline 50 mg (*)] 50 mg PO TID #0 06/22/18 Acetaminophen [Tylenol 325mg (*)] 650 mg PO Q4 PRN tab 07/15/18 Gabapentin [Neurontin] 600 mg PO BID 11/01/18 Herbals/Supplements -Info Only 1 ea PO DAILY 11/01/18 cloNIDine HCL [Clonidine HCl] 0.3 mg PO TID 11/01/18 Medical Decision Making - Diagnostics Imaging Results: Imaging Impressions Chest X-Ray 11/01/18 10:36 Impression: 1. Stable mild cardiomegaly. 2. Bronchial wall thickening, which could be secondary to bronchitis or pulmonary edema. Abdomen CT 11/01/18 11:04 Impression: Moderate constipation. No evidence for diverticulitis or appendicitis. Other chronic findings, as above. Results called and discussed with Jose Graham PA-C, on November 01, 2018 at 1218. Chest/Thorax CTA 11/01/18 11:04 Impression: 1. No evidence of pulmonary thromboembolic disease. 2. Mild bronchitis. Results called and discussed with Jose Graham PA-C, on November 01, 2018 at 1215. Images reviewed myself ED Course/Re-evaluation: Re-evaluation with serial exams. Patient complaining of dyspnea, abdominal pain with no definitive etiology on her CT of chest abdomen pelvis. I reviewed her old medical records. Discussed case with Dr. Shaikh in the ER. She is hypertensive, started on nicardipine in the emergency department which she responded well to. Will plan on admission to the hospitalist service. 12:27 p.m.: Consultation hospitalist Dr. Yasmin Lindo, admit to SDU - Data Points Laboratory Results: Laboratory Results 11/01/18 10:46 11/01/18 10:46 11/01/18 11/01/18 11/01/18 10:54 10:51 10:46 WBC RBC Hgb POC Hgb 10.2 gm/dL L gm/dL (12.6-16.3) Hct POC Hct 30 % L % (38-47) MCV MCH MCHC RDW Plt Count MPV Neut % (Auto) Lymph % (Auto) Woodson % (Auto) Eos % (Auto) Baso % (Auto) Nucleat RBC Rel Count Absolute Neuts (auto) Absolute Lymphs (auto) Absolute Monos (auto) Absolute Eos (auto) Absolute Basos (auto) Absolute Nucleated RBC Immature Gran % Immature Gran # POC Sodium 138 mEq/L mEq/L (135-145) Sodium POC Potassium 3.8 mEq/L mEq/L (3.3-5.0) Potassium POC Chloride 98 mEq/L mEq/L (97-110) Chloride Carbon Dioxide POC Total CO2 27 mEq/L mEq/L (22-31) Anion Gap POC BUN 15 mg/dL mg/dL (7-23) BUN Creatinine POC Creatinine 0.6 mg/dL mg/dL (0.6-1.0) Estimated GFR Glucose POC Glucose 141 mg/dL H mg/dL (70-100) Calcium Total Bilirubin Conjugated Bilirubin Unconjugated Bilirubin AST ALT Alkaline Phosphatase POC Troponin I 0.00 ng/mL ng/mL (0.00-0.08) NT-Pro-B Natriuret Pep Total Protein Albumin Lipase Beta HCG, Qual NEGATIVE 11/01/18 11/01/18 10:46 10:46 WBC 9.84 10^3/uL H 10^3/uL (3.80-9.50) RBC 3.50 10^6/uL L 10^6/uL (4.18-5.33) Hgb 9.3 g/dL L g/dL (12.6-16.3) POC Hgb Hct 29.6 % L % (38.0-47.0) POC Hct MCV 84.6 fL fL (81.5-99.8) MCH 26.6 pg L pg (27.9-34.1) MCHC 31.4 g/dL L g/dL (32.4-36.7) RDW 13.8 % % (11.5-15.2) Plt Count 368 10^3/uL 10^3/uL (150-400) MPV 10.0 fL fL (8.7-11.7) Neut % (Auto) 56.6 % % (39.3-74.2) Lymph % (Auto) 31.0 % % (15.0-45.0) Woodson % (Auto) 7.8 % % (4.5-13.0) Eos % (Auto) 2.9 % % (0.6-7.6) Baso % (Auto) 1.0 % % (0.3-1.7) Nucleat RBC Rel Count 0.2 % % (0.0-0.2) Absolute Neuts (auto) 5.56 10^3/uL 10^3/uL (1.70-6.50) Absolute Lymphs (auto) 3.05 10^3/uL H 10^3/uL (1.00-3.00) Absolute Monos (auto) 0.77 10^3/uL 10^3/uL (0.30-0.80) Absolute Eos (auto) 0.29 10^3/uL 10^3/uL (0.03-0.40) Absolute Basos (auto) 0.10 10^3/uL 10^3/uL (0.02-0.10) Absolute Nucleated RBC 0.02 10^3/uL H 10^3/uL (0-0.01) Immature Gran % 0.7 % % (0.0-1.1) Immature Gran # 0.07 10^3/uL 10^3/uL (0.00-0.10) POC Sodium Sodium 137 mEq/L mEq/L (135-145) POC Potassium Potassium 4.1 mEq/L mEq/L (3.5-5.2) POC Chloride Chloride 99 mEq/L mEq/L (97-110) Carbon Dioxide 26 mEq/l mEq/l (22-31) POC Total CO2 Anion Gap 12 mEq/L mEq/L (6-14) POC BUN BUN 16 mg/dL mg/dL (7-23) Creatinine 0.5 mg/dL L mg/dL (0.6-1.0) POC Creatinine Estimated GFR > 60 Glucose 136 mg/dL H mg/dL (70-100) POC Glucose Calcium 8.4 mg/dL L mg/dL (8.5-10.4) Total Bilirubin 0.2 mg/dL mg/dL (0.1-1.4) Conjugated Bilirubin 0.2 mg/dL mg/dL (0.0-0.5) Unconjugated Bilirubin 0.0 mg/dL mg/dL (0.0-1.1) AST 19 IU/L IU/L (14-46) ALT 29 IU/L IU/L (9-52) Alkaline Phosphatase 146 IU/L H IU/L (38-126) POC Troponin I NT-Pro-B Natriuret Pep 2620 pg/mL H pg/mL (0-125) Total Protein 6.6 g/dL g/dL (6.3-8.2) Albumin 3.9 g/dL g/dL (3.5-5.0) Lipase 74 IU/L IU/L (23-300) Beta HCG, Qual Medications Given: Nicardipine/Sodium Chloride (Cardene 0.1 Mg/Ml (Premix)) 200 mls @ 0 mls/hr IV CONT QASIM; Titrate PRN Reason: Protocol Stop: 04/30/19 10:59 Last Admin: 11/01/18 12:01 Dose: 200 mls Discontinued Medications Albuterol/Ipratropium (Duoneb) 3 ml IH EDNOW ONE Stop: 11/01/18 12:16 Last Admin: 11/01/18 12:25 Dose: 3 ml Methylprednisolone Sodium Succinate (Solu-Medrol) 125 mg IVP EDNOW ONE Stop: 11/01/18 12:16 Last Admin: 11/01/18 12:25 Dose: 125 mg Point of Care Test Results: Chemistry 11/01/18 11/01/18 10:54 10:51 POC Sodium 138 mEq/L mEq/L (135-145) POC Potassium 3.8 mEq/L mEq/L (3.3-5.0) POC Chloride 98 mEq/L mEq/L (97-110) POC Total CO2 27 mEq/L mEq/L (22-31) POC BUN 15 mg/dL mg/dL (7-23) POC Creatinine 0.6 mg/dL mg/dL (0.6-1.0) POC Glucose 141 mg/dL H mg/dL (70-100) POC Troponin I 0.00 ng/mL ng/mL (0.00-0.08) ISTAT H&H 11/01/18 10:54 POC Hgb 10.2 gm/dL L gm/dL (12.6-16.3) POC Hct 30 % L % (38-47) Departure - Departure Disposition: [facility] Inpatient Acute Clinical Impression: Hypoxia, Tobacco abuse, History of COPD, History of congestive heart failure in adulthood Dyspnea Qualifiers: Dyspnea type: unspecified Qualified Code(s): R06.00 - Dyspnea, unspecified Abdominal pain Qualifiers: Abdominal location: unspecified location Qualified Code(s): R10.9 - Unspecified abdominal pain Obesity Qualifiers: Obesity type: unspecified obesity type Obesity classification: unspecified obesity classification Serious obesity comorbidity presence: with serious comorbidity Qualified Code(s): E66.9 - Obesity, unspecified Condition: Fair
--- NOTE | 2018-11-01 10:45 | CPEKG ---
Test Reason : OPEN Blood Pressure : / mmHG Vent. Rate : 071 BPM Atrial Rate : 071 BPM P-R Int : 160 ms QRS Dur : 090 ms QT Int : 424 ms P-R-T Axes : 058 039 076 degrees QTc Int : 461 ms Sinus rhythm Probable left atrial enlargement Probable left ventricular hypertrophy Confirmed by Alan Shaikh ([id number]) on 11/01/2018 10:45:01 AM Referred By: PHYSICIAN ED Confirmed By:Alan Shaikh
[2018-11-01 10:58] LABS: PLATELET COUNT 368 10^3/uL (150-400)
[2018-11-01] MEDS ORDERED: IOPAMIDOL (ISOVUE 370) 100 ML BTL IV ONE (11:11)
[2018-11-01] MEDS: niCARdipine/NACL 200 ML IV SCH ×2 (12:01→15:25)
[2018-11-01] MEDS ORDERED: methylPREDNISolone SOD SUCC 125 MG/2 ML VIAL IVP ONE (12:15)
[2018-11-01] MEDS ORDERED: IPRATROPIUM/ALBUTEROL 3 ML DEYVIAL IH ONE (12:15)
[2018-11-01] MEDS ORDERED: hydrALAZINE 20 MG/ML VIAL IVP PRN (13:14)
[2018-11-01] MEDS ORDERED: POLYETHYLENE GLYCOL 3350 17 GM PKT PO PRN (13:16)
[2018-11-01] MEDS ORDERED: BISACODYL 10 MG SUPP PR PRN (13:16)
[2018-11-01] MEDS ORDERED: LACTULOSE 20 GM/30 ML UDCUP PO PRN (13:16)
[2018-11-01] MEDS ORDERED: MAGNESIUM HYDROXIDE 30 ML UDCUP PO PRN (13:16)
[2018-11-01] MEDS ORDERED: ACETAMINOPHEN 325 MG TAB PO PRN (13:21)
[2018-11-01] MEDS ORDERED: ONDANSETRON 4 MG/2 ML VIAL IVP PRN (13:21)
[2018-11-01] MEDS ORDERED: niCARdipine/NACL 200 ML IV SCH (13:30)
[2018-11-01] MEDS ORDERED: ZOLPIDEM TARTRATE 5 MG TAB PO PRN (14:27)
--- NOTE | 2018-11-01 14:46 | GHP ---
[f rep st] HISTORY AND PHYSICAL DATE OF ADMISSION: 11/01/2018 CHIEF COMPLAINT: Shortness of breath. HISTORY: The patient is a 48-year-old female with a history of very difficult to control hypertensio n. She complains of a few months of worsening abdominal distention. She has had normal bowel moveme nts and occasional nausea, but her main complaint is severe abdominal distention so bad that she feel s like she cannot take a deep breath because it is pushing up on her diaphragm. She saw her primary care doctor who arranged for an outpatient colonoscopy which is scheduled for December. She has had rogelio y satiety but she has been able to take her oral medications. She has epigastric upper abdominal barbara n and she says her upper epigastrium often feels hard. She denies any weight loss and has had worsen ing lower extremity edema. In the last couple of days, her shortness of breath has gotten severe. S he complains of a central chest pressure which she attributes to being unable to breathe. This const ant shortness of breath has caused her to be very anxious and she has bene having panic attacks. PAST MEDICAL HISTORY: 1. Difficult to control hypertension, workup for secondary causes in the past was negative. 2. Continuous narcotic dependence. 3. Morbid obesity with obstructive sleep apnea and obesity hypoventilation syndrome. 4. 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 5. COPD. 6. Diabetes type 2. MEDICATIONS: Please see computerized record for full detailed list. ALLERGIES: Sulfa. SOCIAL HISTORY: She smokes 2 to 3 cigarettes per day, no alcohol. She lives with her . REVIEW OF SYSTEMS: Complete review of systems was obtained. Review of systems is negative including constitutional, HEENT, GI, pulmonary, cardiovascular, , hematologic, endocrine, psych, except for positives in HPI. FAMILY HISTORY: A sister and mother both with strokes. PHYSICAL EXAMINATION: GENERAL: Well-developed female in no acute distress. VITAL SIGNS: Temperatu re 36.8, pulse 79, blood pressure 241/117, saturating 91% on room air. HEENT: Eye examination: Nor mal conjunctivae. Pupils are equal, round, and reactive to light. ENT normal. Ears and nose: hear ing Intact. Normal lips and teeth. Oropharynx moist. NECK: Trachea midline, no thyromegaly. CHES T: Normal respiratory effort. LUNGS: Clear to auscultation bilaterally. CARDIOVASCULAR: Regular rhythm, no murmur, 1+ lower extremity edema, right greater than left. ABDOMEN: Soft, distended, non tender, no hepatosplenomegaly. SKIN: Warm and dry, intact without rash. MUSCULOSKELETAL: No cyano sis or clubbing. Strength 5/5 upper and lower extremities. Cranial nerves intact. Normal sensation to light touch. PSYCH: Alert and oriented x3, normal mood and affect, normal judgment, normal luis fernando ry. LABS: White count 9.84, hematocrit 29.6, platelets 368. Sodium 137, potassium 4.1, chloride 99, bic arb 26, BUN 16, creatinine 0.5, glucose 136, BNP 2620, beta HCG is negative, troponin is negative. EKG reviewed by me. My personal interpretation is normal sinus rhythm with LVH and left atrial enlar gement. CT angiogram of the chest is negative for PE. CT scan of the abdomen and pelvis shows const ipation. ASSESSMENT/PLAN: 1. Hypertensive emergency. The patient presents with extreme blood pressure elevations with associa opal chest pain, shortness of breath and congestive heart failure exacerbation. We will continue intr avenous nicardipine started in the emergency room. We will resume her home oral medications and thes e may need to be up titrated as needed. 2. Shortness of breath. I suspect this is due to abdominal distention with her baseline respiratory status already compromised by her morbid obesity. We will prescribe . 3. Chest pain. She had a negative stress test October 2017. Clinical suspicion for ischemia is low. W e will follow serial troponins. 4. Congestive heart failure exacerbation acute on chronic diastolic dysfunction as well as an elemen t of right heart failure. We will start her on intravenous Lasix. She did have an echocardiogram wi thin the last 6 months. 5. Abdominal distention. This may be due to fluid retention from right heart failure versus due to underlying gastrointestinal disease. We will diurese her and see how she does. She has an outpatien t esophagogastroduodenoscopy and colonoscopy scheduled. If necessary, we could do this as an inpatie nt. For now, we will just treat her constipation. 6. Worsening anemia. We will check ferritin and TIBC. As discussed above, she needs gastroenterolo gy evaluation. 7. Continuous narcotic dependence. Continue methadone. 8. Obstructive sleep apnea and obesity hypoventilation syndrome. Need to clarify her CPAP status. She sometimes wears oxygen during the day when she feels short of breath. 9. Diabetes type 2. Clarify home medications. CODE STATUS: Full. ADMISSION STATUS: Full admit to inpatient. Anticipate that greater than 2 midnights will be require d for stabilization. DVT prophylaxis. She will be placed on subcu. Lovenox. /[id number]/MODL
[2018-11-01] MEDS: FUROSEMIDE 40 MG/4 ML VIAL IVP SCH (15:25)
[2018-11-01] MEDS: METHADONE HCL 10 MG/ML UDSYR PO SCH (15:29)
--- NOTE | 2018-11-01 15:31 | PDMN ---
Medical Necessity Medical necessity: Pt meets IP criteria per MD & MCG M-197; est los >2 mn for eval/tx of hypertensive emergency (BP 241/117) w/chest pain, shortness of breath , CHF exacerbation, abdominal distention & worsening anemia; admit to ICU for close monitoring, IV Nicardipine & IV Lasix; hx difficult to control htn, COPD, diabetes, morbid obesity; per H&P & order 11/01/18
[2018-11-01] MEDS ORDERED: PROTOCOL POTASSIUM 1 DOSE MISC PRN (15:47)
[2018-11-01] MEDS: clonazePAM 0.5 MG TAB PO PRN ×2 (15:52→20:20)
[2018-11-01] MEDS: CARISOPRODOL 350 MG TAB PO PRN ×2 (15:52→20:22)
--- NOTE | 2018-11-01 16:40 | ASMTCMCOM ---
CM Note CM Note Notes: Patient with multiple medical issues admitted via ED with c/o SOB and abdominal pain. She is admitted to the ICU. CM to follow for needs. Plan: TBD Date Signed: 11/01/2018 04:31 PM Electronically Signed By:Luann Vidal RN
--- NOTE | 2018-11-01 17:36 | GCON ---
[f rep st] CONSULTATION PULMONARY/CRITICAL CARE CONSULTATION DATE OF CONSULTATION: 11/01/2018 REFERRING PHYSICIAN: Yasmin Lindo MD REASON FOR REFERRAL: Evaluation and management of hypertension and obstructive sleep apnea. HISTORY: The patient is a 48-year-old woman with a history of obesity and zyxsujkst-jo-hlsyyyo hyper tension. For the past few months, she has had episodes of worsening distention that make it so that she feels she cannot take a deep breath. This causes some anxiety and low oxygen levels. She is ivon eduled for an outpatient GI evaluation. She has had worsening episodes of the shortness of breath th e past few days and accompanied by some chest pressure and panic sensation. [facility] and was found to have severe hypertension with a blood pressure of 241/117. She was started on a Cardizem drip and reports that she feels better. PAST MEDICAL HISTORY: 1. Hypertension. She has had prior admissions for this labile hypertension. It has been somewhat d ifficult to control. 2. Morbid obesity. 3. Obstructive sleep apnea. This was suspected at the time of her hospitalization in October 2017, at [facility] time I saw her and recommended outpatient sleep study. This was performed and showed severe sle ep apnea with severe hypoxemia, mean oxygen saturation of 79%. She was started on CPAP and oxygen, w ith good efficacy and fairly good compliance. However, about 2 months ago she stopped using it due t o RSV with nasal congestion. She just restarted using it a few weeks ago. She reports improved symp toms of more refreshed sleep when she uses CPAP. 4. History of COPD. 5. Type 2 diabetes. 6. Narcotic dependence. 7. History of pulmonary hypertension. She previously had evidence of pulmonary hypertension on echo cardiogram, but her most recent echocardiogram showed a normal/mildly elevated pulmonary artery press ure. MEDICATIONS: At time of admission include Norvasc, Trileptal, albuterol, clonazepam, methadone 224 m g twice daily, metformin, trazodone 150 mg each evening, Soma 350 mg 4 times daily, pantoprazole, ran itidine, clonidine, lisinopril, hydralazine, gabapentin. ALLERGIES: Sulfa and metoclopramide. SOCIAL HISTORY: The patient smokes a few cigarettes a day. Lives with her . Denies alcohol. FAMILY HISTORY: Unremarkable. REVIEW OF SYSTEMS: A 10-point review of systems adds nothing to the History of Present Illness. PHYSICAL EXAMINATION: GENERAL: The patient is awake, alert, and in no acute distress. VITAL SIGNS: Blood pressure is 133/71 on nicardipine at 5 mg/hour, heart rate 90. She is afebrile. Oxygen satu rations are 94% on room air. HEENT: Normocephalic and atraumatic. No icterus. NECK: No JVD. Tra terrell is midline. CHEST: Clear to auscultation. CARDIAC: Regular rate and rhythm without murmur. ABDOMEN: Soft, nontender. Bowel sounds are present. EXTREMITIES: No clubbing, cyanosis, or edema. NEURO: The patient is awake, alert. She has no gross motor or sensory deficits. LABORATORY: A hemoglobin is 10.2. Chemistry group is remarkable just for a glucose of 141, a BNP is 2620. CT scan of the chest shows no pulmonary embolism or other infiltrates. Images reviewed by me. ASSESSMENT: 1. Severe hypertension. This has been difficult to control and somewhat labile. She is normotensiv e on nicardipine. 2. Obstructive sleep apnea. This has been treated with continuous positive airway pressure/oxygen, although she was noncompliant with that earlier this spring. She reports good usage now that she almita t her respiratory syncytial virus and nasal congestion have improved. 3. Pulmonary hypertension. This was apparently present previously, possibly related to an echocardi ogram being done prior to treatment of sleep apnea and while the patient had hypertension. This is i mproved on her most recent echocardiogram. 4. Chronic obstructive pulmonary disease. I do not see any pulmonary function tests. She is sympto matically well treated with albuterol p.r.n. alone. RECOMMENDATIONS: 1. Continue nicardipine. 2. The patient will bring in her CPAP, and this could be used with supplemental oxygen here in the h ospital. 3. Outpatient evaluation for episodic GI distention. /[id number]/MODL
[2018-11-01] MEDS: metFORMIN HCL 500 MG TAB PO SCH (18:21)
[2018-11-01] MEDS: GABAPENTIN 300 MG CAP PO SCH (20:19)
[2018-11-01] MEDS: SENNOSIDES/DOCUSATE SODIUM TAB PO SCH (20:21)
[2018-11-01] MEDS: PANTOPRAZOLE SODIUM 40 MG TAB PO SCH (20:21)
[2018-11-01] MEDS: FAMOTIDINE 20 MG TAB PO SCH (20:21)
[2018-11-01] MEDS ORDERED: traZODone 100 MG TAB PO SCH (21:00)
[2018-11-01] MEDS ORDERED: OXcarbazepine 300 MG TAB PO SCH (21:00)
[2018-11-02] MEDS: CARISOPRODOL 350 MG TAB PO PRN ×3 (05:23→13:59)
[2018-11-02] MEDS: clonazePAM 0.5 MG TAB PO PRN ×3 (05:23→13:59)
[2018-11-02] MEDS: METHADONE HCL 10 MG/ML UDSYR PO SCH ×2 (05:24→14:02)
[2018-11-02 05:54] LABS: PLATELET COUNT 345 10^3/uL (150-400)
[2018-11-02] MEDS: metFORMIN HCL 500 MG TAB PO SCH (08:25)
[2018-11-02] MEDS: FAMOTIDINE 20 MG TAB PO SCH (08:27)
[2018-11-02] MEDS: GABAPENTIN 300 MG CAP PO SCH (08:28)
[2018-11-02] MEDS: PANTOPRAZOLE SODIUM 40 MG TAB PO SCH (08:28)
[2018-11-02] MEDS: FUROSEMIDE 40 MG/4 ML VIAL IVP SCH ×2 (08:29→14:07)
[2018-11-02] MEDS ORDERED: ENOXAPARIN 40 MG/0.4 ML SYR SC SCH (09:00)
[2018-11-02] MEDS ORDERED: LISINOPRIL 40 MG TAB PO SCH (09:00)
[2018-11-02] MEDS ORDERED: OXcarbazepine 300 MG TAB PO SCH (09:00)
[2018-11-02] MEDS: SENNOSIDES/DOCUSATE SODIUM TAB PO SCH (10:53)
[2018-11-02] MEDS ORDERED: FERROUS SULFATE 325 MG TAB PO SCH (11:30)
[2018-11-02] MEDS ORDERED: POLYETHYLENE GLYCOL 3350 17 GM PKT PO SCH (11:30)
--- NOTE | 2018-11-02 11:33 | PDIAF ---
- Diagnosis Diagnosis: CHF Code Status: Full Code - Medication Management Discharge Medications: electronically signed and located in the Home Medication List. - Orders Services needed: Home Care, Registered Nurse, Master Pediatric Physical Therapist, Occupational Therapy Home Care Face to Face: I certify that this patient was under my care and that I had the required [id number] encounter meeting the encounter requirements on the discharge day. My findings support the fact that the patient is homebound as defined in Home Care Face to Face Continued: CMS Chapter 7 Medicare Benefits Manual 30.1.1 , The condition of the patient is such that there exists a normal inability to leave home and consequently, leaving home would require a considerable and taxing effort. Isolation Type: Droplet Isolation Diet Recommendation: sodium restricted Weigh Patient: daily Additional Instructions: Weight yourself daily. If weight and swelling at worse, take a dose of Lasix that day Continue chlorthalidone daily. Use lasix prn (as needed) Take OTC ferrous sulfate 325mg 1-2 day as tolerated Take OTC Miralax once daily - scheduled Follow-up with GI for EGD and colonoscopy as scheduled to work up Iron Deficiency Anemia - Follow Up Care Current Providers and Referrals: Christiano Sandoval MD [Primary Care Provider] - As per Instructions Ginny Ware MD [Medical Doctor] -
--- NOTE | 2018-11-02 11:34 | PDHOMEO2F ---
Home Oxygen Face to Face Home Orders: I certify that a physician or a nurse practitioner or physician's assistant press operator has had a mnkt-zt-ivth encounter with this patient on the date of this order due to the diagnosis listed, which relates to the primary reason the patient requires home oxygen. Alternative treatments have been tried, or considered, and deemed ineffective. It is anticipated that supplemental oxygen will result in improvement with treatment. Home oxygen qualifying diagnosis: COPD, obesity hypoventilation SpO2 on room air (%): 74 Frequency of home oxygen needed: continuous Home oxygen liters per minute: 2 Home oxygen delivery device: nasal cannula Concentrator: Yes E-tanks for mobility and back up: Yes If ordering portable O2, is the patient mobile in the home?: Yes I certify that, based on these findings, the home oxygen is medically necessary for this patient for the following length of time. Length of time home oxygen needed: 99 years
--- NOTE | 2018-11-02 13:34 | ASMTDCNOTE ---
Case Management Discharge Discharge Order Complete? Answers: Yes Patient to Obtain Answers: via Family Medications Transportation Arranged Answers: Family/Friends Transport will Pick (Date 11/02/2018 12:00 AM & Time) Faxed Final Orders Answers: Yes Agency/Facility Transfer Answers: Yes Report Printed & Faxed to Receiving Agency Family Notified Answers: Yes Notes: in the room Discharge Comments Notes: Spoke with pt in the room. Pt to discharge home with HC OT/SW/RN. Pt informed that [facility] doesn't have staffing for her until Saturday and she confirmed she wants to stick with [facility] regardless. Referral sent. RN given number for RN report. No further CM needs noted at this time. Date Signed: 11/02/2018 01:32 PM Electronically Signed By:Letty Esqueda
--- NOTE | 2018-11-02 13:37 | ASMTLACE ---
YE Length of stay for Answers: 1 day current admission Acuity / Level of Answers: Yes Care: Did the patient have an inpatient admission? Comorbidities - select Answers: Chronic pulmonary disease all that apply Congestive heart failure Diabetes (uncontrolled or controlled) Opioid dependence / Chronic pain Other Notes: HTN, # of Emergency department Answers: 3-4 visits in the last 6 months Social determinants Answers: History of substance abuse (ETOH, street drugs, prescription drugs, etc.) Score: 20 Date Signed: 11/02/2018 01:35 PM Electronically Signed By:Letty Esqueda
--- NOTE | 2018-11-02 13:37 | ASMTCMCOM ---
CM Note CM Note Notes: ADDENDUM: [facility] also notified of pt's admission Date Signed: 11/02/2018 01:36 PM Electronically Signed By:Letty Esqueda
[2018-11-02 14:10] VITALS: BP 174/72
--- NOTE | 2018-11-02 21:59 | GDS ---
[f rep st] DISCHARGE SUMMARY DISCHARGE DIAGNOSES: 1. Hypertensive emergency. 2. Acute on chronic diastolic congestive heart failure. 3. Obesity hypoventilation syndrome. 4. Iron-deficiency anemia. 5. Continuous narcotic dependence, on methadone. 6. Obstructive sleep apnea, on continuous positive airway pressure. 7. Diabetes type 2. HISTORY: The patient is a 48-year-old female, with very difficult to control hypertension. She has recently been having a few months of worsening abdominal distention. She has an outpatient EGD and c olonoscopy scheduled for December. Abdominal distention had gotten so significant she was having trouble taking a deep breath, and it subsequently led to shortness of breath. CT scan of the chest, abdomen , and pelvis was negative including ruling out pulmonary embolus. There was no obvious GI mass that would be possible source for blood loss. She was heme-negative from below. She presented with severe hypertension, blood pressure 241/117. With her complaints of chest pain an d shortness of breath, she was started on IV Cardene drip for hypertensive emergency. She was admitt ed to ICU. She has a history of very difficult to control hypertension and follows with Dr. Ware of Nephrology as an outpatient. Workup for secondary causes of hypertension has been done in the past a nd was negative. She was able to wean off the nicardipine much faster than anticipated. We restarte d her home medications, and her blood pressure has been well controlled throughout the observation pe riod. She has improved faster than anticipated. I think she can go home today. She presented with worsening lower extremity edema. I think some of her abdominal distention might a lso be abdominal wall and bowel edema due to right heart failure. She got some doses of IV Lasix and has improved. She was previously on Lasix as an outpatient. However, Nephrology switched her to ch lorthalidone as her diuretic for improved blood pressure control. This has helped her blood pressure . However, since coming off Lasix she has had more problems with edema. At discharge I will continu e her chlorthalidone as prescribed by Nephrology but give her additional doses of Lasix that she can take on an as-needed basis when her weight starts to creep up. She was educated regarding the need f or daily weights. She was arranged for home oxygen which she had had only had a concentrator in the home and did not have any portable oxygen and she would get into lots of distress when trying to go o ut. Hopefully with portable oxygen being available to her, her shortness of breath will improve and we can decrease future hospitalizations. She has had multiple stress tests in the past including mos t recently negative stress test in October 2017. I recommended she start oral iron replacement for her iron deficiency anemia. Her ferritin was low, and her TIBC was high. Given her heme-negative stool and stable H and H, I think it is okay for her to continue to pursue EGD and colonoscopy as an outpatient as scheduled. Her CT scan on presentation did show evidence of constipation. She was counseled regarding daily MiraLAX use, especially with t he use of oral iron. DISCHARGE MEDICATIONS: Please see computerized record for full detailed list. New medications: 1. Lasix 40 mg p.o. daily as needed for swelling or increased weight. She can use this in addition to her scheduled dose of chlorthalidone 25 mg p.o. daily. 2. Ferrous sulfate 325 mg p.o. b.i.d. 3. MiraLAX 17 g p.o. daily. ADDITIONAL DISCHARGE INSTRUCTIONS: 1. Weigh yourself daily. If weight and swelling are worse, take an additional dose of Lasix that da y. 2. Follow up with Gastroenterology for outpatient EGD and colonoscopy as scheduled to work up iron d eficiency anemia. 3. Home oxygen 14/01 including portable tanks. She was 72% on room air. Greater than 30 minutes' time spent arranging this discharge. Patient was seen and examined by me on the day of discharge. /[id number]/MODL
== END 2018-11-02 14:35 | disposition home health service (06) | DRG 199 ==
LOC: OBSVTOIN 12:32 → F2N 14:55
PROVIDERS: ADMIT Internal Medicine; ATTEND Internal Medicine
DX: I16.1 Hypertensive emergency (principal); I11.0 Hypertensive heart disease with heart failure; I50.33 Acute on chronic diastolic (congestive) heart failure; J96.11 Chronic respiratory failure with hypoxia; E66.2 Morbid (severe) obesity with alveolar hypoventilation; D50.9 Iron deficiency anemia, unspecified; F17.210 Nicotine dependence, cigarettes, uncomplicated; E11.9 Type 2 diabetes mellitus without complications; J44.9 Chronic obstructive pulmonary disease, unspecified; I50.811 Acute right heart failure
CPT/HCPCS: 82435-PO; 82565-PO; 82947-PO; 84132-PO; 84295-PO; 84484-ER; 84520-PO; 85014-ER; 96365; 96366; J0360; J1650; J1940; J2930; Q9967

== ENCOUNTER 2018-11-10 16:01 | Emergency (ER) | payer MEDICAID ==
[2018-11-10] MEDS ORDERED: LORazepam 1 MG TAB PO ONE (16:42)
--- NOTE | 2018-11-10 17:23 | EDPHY ---
H & P Time Seen by Provider: 11/10/18 16:14 HPI/ROS: CHIEF COMPLAINT: Hypertension HISTORY OF PRESENT ILLNESS: Patient sent to the emergency department from Cardiology office up stairs by Dr. Ang. Patient with significant past medical history and several admissions in 2019 for hypertensive urgency. Most recent hospital admission was at [facility] and she was discharged on 04/2019. Today she presents with elevated blood pressure of 261/118. I discussed her case with Dr. Ang at 4:25 p.m. And he states he saw her in the clinic and despite time and her taking her own clonidine at 2:00 p.m. Her blood pressure was felt to be too high for safe discharge home. She presents today with no complaints of chest pain, shortness of breath. She states that she has been taking her medications as prescribed. She has had a lot of family stress and anxiety most recently today she saw her son who lives with his grandmother. This was quite stressful to her as there has been significant family problems with restraining orders and such. Otherwise she states that she has "more energy today than usual". She has some lower extremity edema right greater than left but this is improving after recent adjustment of her diuretics at her recent hospitalization. She took 0.3 mg of clonidine at 2:00 p.m. That is down from 0.4 mg. She denies any fevers. She has had no cough. Contents of 10 point review of systems otherwise negative except for what is mentioned in HPI. General Appearance: Alert, no distress. Eyes: Pupils equal and round no pallor or injection. ENT, Mouth: Mucous membranes moist. Respiratory: There are no retractions, lungs are clear to auscultation. Cardiovascular: Regular rate and rhythm. Gastrointestinal: Abdomen is soft and nontender, no masses, bowel sounds normal. Neurological: Awake, alert, no focal neurologic deficits. Skin: Warm and dry, no rashes. Musculoskeletal: Neck is supple nontender. Extremities are symmetrical, full range of motion, mild pitting edema on the right lower extremity. Psychiatric: Patient is oriented X 3, there is no agitation. Medical/surgical history: COPD, CHF, chronic oxygen use, hypertension, chronic pain, migraines, sleep apnea, brain lesions. Also degenerative disc disease and history of MRSA 6 years ago. Social history: Uses tobacco, states 2 cigarettes a day. Previous history of heroin abuse, denies any current drug or alcohol use. Smoking Status: Light smoker Constitutional: Initial Vital Signs Temperature (C) 36.9 C 11/10/18 16:13 Heart Rate 73 11/10/18 16:13 Respiratory Rate 20 11/10/18 16:13 Blood Pressure 261/118 H 11/10/18 16:13 O2 Sat (%) 84 L 11/10/18 16:13 O2 Delivery Mode Nasal Cannula O2 (L/minute) 2 Allergies/Adverse Reactions: Sulfa (Sulfonamide Antibiotics) Allergy (Severe, Verified 11/10/18 16:13) CAN'T BREATHE metoclopramide HCl [From Reglan] Allergy (Intermediate, Verified 11/10/18 16:13) jaw clenched up tramadol HCl [From Ultram] Allergy (Unknown, Verified 11/10/18 16:13) TROUBLE BREATHING,HIVES propranolol HCl [From Inderal] Allergy (Verified 11/10/18 16:13) Hives Home Medications: Medication Instructions Recorded amLODIPine BESYLATE [Norvasc 10 mg 10 mg PO DAILY 10/03/15 (*)] OXcarbazepine [Trileptal 300mg (*)] 600 mg PO DAILY 10/06/15 OXcarbazepine [Trileptal 300mg (*)] 900 mg PO HS 10/06/15 Albuterol [Proventil Inhaler HFA 2 puffs IH Q4H PRN 10/05/16 (*)] Methadone HCl [Dolophine Intensol 224 mg PO BID@0530,1500 #0 11/08/17 10 mg/ml (*)] Zolpidem Tartrate [Ambien 5MG (*)] 5 mg PO HS PRN 11/08/17 clonazePAM [Klonopin (*)] 0.5 mg PO TID PRN 11/08/17 metFORMIN HCL [Glucophage 500 mg 500 mg PO BIDMEAL #60 tab 11/13/17 (*)] traZODone [traZODone 150MG (*)] 150 mg PO HS #30 tab 11/13/17 Carisoprodol [SOMA] 350 mg PO QID PRN 06/19/18 Pantoprazole Sodium [Protonix 40mg 40 mg PO BID 06/19/18 (*)] Ranitidine HCl [Zantac] 150 mg PO BID 06/19/18 clonIDINE [Catapres (*)] 0.1 mg PO TID PRN 06/19/18 Lisinopril [Zestril 40 mg (*)] 40 mg PO DAILY #0 06/20/18 hydrALAZINE [Apresoline 50 mg (*)] 50 mg PO TID #0 06/22/18 Acetaminophen [Tylenol 325mg (*)] 650 mg PO Q4 PRN tab 07/15/18 Gabapentin [Neurontin] 600 mg PO BID 11/01/18 Herbals/Supplements -Info Only 1 ea PO DAILY 11/01/18 cloNIDine HCL [Clonidine HCl] 0.3 mg PO TID 11/01/18 Chlorthalidone [Chlorthalidone 25 25 mg PO DAILY #30 tab 11/02/18 mg (*)] Ferrous Sulfate [Ferrous Sulf 325 325 mg PO BID #60 tab 11/02/18 MG (*)] Furosemide [Lasix 40 MG (*)] 40 mg PO DAILY PRN #30 tab 11/02/18 Polyethylene Glycol 3350 [Miralax 17 gm PO DAILY #30 pkt 11/02/18 17 gm (*)] Medical Decision Making ED Course/Re-evaluation: 5:30 p.m. blood pressure 168/87, rechecked on patient, no complaints. Will discharge home no changes in medications. Differential Diagnosis: Differential diagnosis includes but is not limited to hypertensive emergency, hypertensive urgency, labile hypertension, CHF exacerbation medication withdrawal, medication noncompliance. Patient sent to the emergency department for blood pressure control from Cardiology office with no acute complaints. Patient given 0.1 mg of clonidine and 1 mg of Ativan and with time blood pressure back to likely normal baseline. Will discharge home with no current medication changes. She has home health care visit scheduled tomorrow and understands return precautions. - Data Points Medications Given: Discontinued Medications Clonidine (Catapres) 0.1 mg PO EDNOW ONE Stop: 11/10/18 16:42 Last Admin: 11/10/18 16:49 Dose: 0.1 mg Lorazepam (Ativan) 1 mg PO EDNOW ONE Stop: 11/10/18 16:43 Last Admin: 11/10/18 16:49 Dose: 1 mg Departure - Departure Referrals: Christiano Sandoval MD [Primary Care Provider] - As per Instructions
[2018-11-10 17:39] VITALS: BP 168/87
== END 2018-11-10 17:57 | disposition home or self-care (01) ==
LOC: CED 16:01
DX: I11.0 Hypertensive heart disease with heart failure (principal); J44.9 Chronic obstructive pulmonary disease, unspecified; F17.200 Nicotine dependence, unspecified, uncomplicated
CPT/HCPCS: 99283-ER